=== PATIENT | female | born 1945 | race Caucasian/White ===

== ENCOUNTER 2016-12-07 09:16 | Day surgery (SDC) | payer OTHER, MEDICARE ==
--- NOTE | 2016-12-07 03:00 | GHP ---
[f rep st] PREOP HISTORY AND PHYSICAL COMPLAINT: Left knee pain. HISTORY OF PRESENT ILLNESS: This is a 71-year-old female who had been doing well with injections to the knee. However, she was [place] quickly through an airport, headed to [place] for vacation, caught her foot on a rug, had a large amount of pain in the knee, and has had swelling since then. Has had pain while on vacation that has not significantly improved. She subsequently underwent an MRI and was found to have a medial meniscal tear with some osteoarthritic changes. She wishes to have surgery in order to resolve the problem. ALLERGIES: She is allergic to sulfa. CURRENT MEDICATIONS: Include amitriptyline, atorvastatin, duloxetine, Humalog, levothyroxine, metoprolol, olmesartan, and warfarin. PRIOR MEDICAL PROBLEMS: Include diabetes and thyroid issues. Procedures include a right shoulder scope x2. SOCIAL HISTORY: She is a former smoker, and takes no alcohol. PHYSICAL EXAM: HEENT: Pupils are equal, round, reactive to light. CHEST: Clear to auscultation. HEART: Regular rate and rhythm. ABDOMEN: Soft and nontender. EXTREMITIES: The left knee reveals mild effusion to the knee with tenderness noted at the Hoffa pad and the medial joint line. ASSESSMENT AND PLAN: Patient is status post left medial meniscal tear with ____ . The risks and benefits of surgery were thoroughly discussed with the patient. Plan is to take her to the operating room, where she will undergo a left knee arthroscopy. /[id number]/MODL MTDD
--- NOTE | 2016-12-07 07:11 | PDHPUP ---
History & Physical Update H&P update statement: This history and physical update is based on an assessment of the patient which was completed after admission or registration (within 24 hours), but prior to the surgery/procedure. H&P update: H&P reviewed & patient examined, no change in patient's condition since H&P completed
[~2016-12-07 09:16] MED LIST: ACETAMINOPHEN 500 MG TAB PO ONE; ceFAZolin 2 GM/DEXTROSE 100 ML IV ONE
[2016-12-07] MEDS ORDERED: LIDOCAINE 1% 2 ML INJ ID PRN (09:43)
[2016-12-07] MEDS ORDERED: LR 1,000 ML IV ONE (09:43)
[2016-12-07] MEDS ORDERED: BUPIVACAINE 0.5% 30 ML SDV ONE (10:07)
[2016-12-07] MEDS ORDERED: ceFAZolin 2 GM/DEXTROSE 100 ML IV ONE (10:45)
[2016-12-07] MEDS ORDERED: ACETAMINOPHEN 500 MG TAB PO ONE (10:45)
[2016-12-07 10:47] LABS: INR 1.32 (0.83-1.16); PROTIME(PATIENT) 16.4 SEC (12.0-15.0)
[2016-12-07 10:55] VITALS: PULSE 81
[2016-12-07] MEDS ORDERED: D50W 25 GM/50 ML SYR IVP ONE (12:00)
--- NOTE | 2016-12-07 12:23 | PDANEPAE ---
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 hx of paroxismal atrial fibrillation - Pulmonary History Hx COPD: No Hx Asthma/Reactive Airway Disease: No Hx Recent Upper Respiratory Infection: No Hx Oxygen in Use at Home: No Hx Sleep Apnea: No Sleep Apnea Screening Result - Last Documented: Negative Pulmonary History Comment: pulmonary emboli nov 2015 - Neurologic History Hx Cerebrovascular Accident: No Hx Seizures: No Hx Dementia: No Neurologic History Comment: NEUROPATHY - bilat great toes & 2nd toes - Endocrine History Hx Diabetes: Yes Hypothyroid: Yes Endocrine History Comment: TYPE I DM, brittle. HYPOTHYROID - HASHIMOTOS - Renal History Hx Renal Disorders: No - Liver History Hx Hepatic Disorders: No - Neurological & Psychiatric Hx Hx Neurological and Psychiatric Disorders: Yes Neurological / Psychiatric History Comment: ANXIETY - LORAZEPAM - Cancer History Hx Cancer: No - Congenital Disorder History Hx Congenital Disorders: No - GI History Hx Gastrointestinal Disorders: Yes Gastrointestinal History Comment: LAP BAND for morbid obesity - Other Health History Other Health History: NEG - Chronic Pain History Chronic Pain: No - Surgical History Prior Surgeries: L RTC REPAIR 2012. LAP BAND 2014. TONSILLECTOMY. D&C ANE Review of Systems Review of Systems: - Exercise capacity METS (RN): 4 METS ANE Patient History - Allergies Allergies/Adverse Reactions: maltodextrin Allergy (Intermediate, Verified 12/22/15 15:49) Diarrhea Sulfa (Sulfonamide Antibiotics) Allergy (Mild, Verified 12/15/15 14:14) headache - Home Medications Home Medications: Atorvastatin Calcium [Lipitor 20 mg (*)] 20 mg PO HS 05/04/15 [Last Taken 21:00] Cholecalciferol Vit D3 [Vitamin D3 (*)] 5,000 units PO DAILY 05/04/15 [Last Taken 12/14/15] DULoxetine [Cymbalta 60 MG (*)] 60 mg PO HS 05/04/15 [Last Taken 12/06/16 22:00] Insulin Pump: Novolog 1 each SC CONT 05/04/15 [Last Taken 12/15/15] Levothyroxine [Synthroid 125 mcg (*)] 125 mcg PO DAILY06 05/04/15 [Last Taken 06:00] Olmesartan Medoxomil [Benicar 20 mg (*)] 20 mg PO HS 05/04/15 [Last Taken ] Amitriptyline HCl [Elavil 10 mg (*)] 10 mg PO HS 05/24/15 [Last Taken 12/06/16 21:00] Melatonin [Melatonin 5 mg] 5 mg PO HS PRN 05/24/15 [Last Taken 12/14/15] Multivitamin [Chewable Multi Vitamin] 1 tab PO DAILY 07/10/15 [Last Taken ] - NPO status NPO Since - Liquids (Date): 12/06/16 NPO Since - Liquids (Time): 22:30 NPO Since - Solids (Date): 12/05/16 NPO Since - Solids (Time): 17:00 - Smoking Hx Smoking Status: Former smoker - Family Anes Hx Family Hx Anesthesia Complications: NEG ANE Labs/Vital Signs - Vital Signs Blood Pressure: 123/72 Heart Rate: 81 Respiratory Rate: 16 O2 Sat (%): 96 Height: 160.02 cm Weight: 72.121 kg ANE Physical Exam - Airway Neck exam: FROM Mallampati Score: Class 1 Mouth exam: normal dental/mouth exam, abnormal chin (Short TM distance) - Pulmonary Pulmonary: clear to auscultation ([) - Cardiovascular Cardiovascular: regular rate and rhythym - ASA Status ASA Status: III ANE Anesthesia Plan Anesthesia Plan: general endotracheal anesthesia
[2016-12-07] MEDS ORDERED: MIDAZOLAM 2 MG/2 ML VIAL IVP ONE (12:35)
[2016-12-07] MEDS ORDERED: MIDAZOLAM 2 MG/2 ML VIAL ONE ×3 (12:37)
[2016-12-07] MEDS ORDERED: PROPOFOL 200 MG/20 ML VIAL ONE ×2 (12:43→13:00)
[2016-12-07] MEDS ORDERED: ROCURONIUM 50 MG/5 ML VIAL ONE (12:43)
[2016-12-07] MEDS ORDERED: DEXAMETHASONE 4 MG/ML VIAL ONE (12:45)
[2016-12-07] MEDS ORDERED: ONDANSETRON 4 MG/2 ML VIAL ONE (13:14)
[2016-12-07] MEDS ORDERED: CYCLOBENZAPRINE 10 MG TAB PO PRN (13:48)
[2016-12-07] MEDS ORDERED: TEMAZEPAM 15 MG CAP PO PRN (13:48)
[2016-12-07] MEDS ORDERED: PROMETHAZINE HCL 25 MG SUPPR PR PRN (13:48)
[2016-12-07] MEDS ORDERED: METOCLOPRAMIDE 10 MG/2 ML VIAL IVP PRN (13:48)
[2016-12-07] MEDS ORDERED: diphenhydrAMINE 25 MG CAP PO PRN (13:48)
[2016-12-07] MEDS ORDERED: PROMETHAZINE HCL 25 MG/ML INJ IVP PRN (13:48)
[2016-12-07] MEDS ORDERED: oxyCODONE IR 5 MG TAB PO PRN (13:48)
[2016-12-07] MEDS ORDERED: ONDANSETRON 4 MG/2 ML VIAL IVP PRN (13:48)
[2016-12-07] MEDS ORDERED: ONDANSETRON DISINTEGRATING 4 MG TAB PO PRN (13:48)
--- NOTE | 2016-12-07 13:48 | POSTOPPROG ---
Post Op Note Date of Operation: 12/07/16 Surgeon: Jennifer Montes De Oca Anesthesiologist: cynthia Anesthesia: GET(General Endotracheal) Pre-op Diagnosis: l mmt/.lmt/oa Procedure: with paertial med/lat menisectomy with chondroplasty Inf/Abcess present in the surg proc area at time of surgery?: No Depth: Deep Incisional (Fascial)
[2016-12-07] MEDS ORDERED: fentaNYL 100 MCG/2 ML INJ IVP PRN (13:52)
[2016-12-07] MEDS ORDERED: NALOXONE HCL 0.4 MG/ML INJ IVP PRN (13:52)
[2016-12-07] MEDS ORDERED: LR 1,000 ML IV SCH (14:00)
[2016-12-07 14:49] VITALS: TEMP 97.5
--- NOTE | 2016-12-07 14:56 | POSTANESTH ---
Post Anesthetic Evaluation Cardiovascular Status: Similar to Pre-Op Cond Respiratory Status: Normal, Stable Level of Consciousness/Mental Status: Can Participate in Eval Pain Control: Adequate, Prn Tx Ordered Nausea/Vomiting Control: Adequate, Prn Tx Ordered Complications Possibly Related to Anesthesia: None Noted
--- NOTE | 2016-12-07 15:08 | GOP ---
[f rep st] OPERATIVE REPORT DATE OF OPERATION: 12/07/2016 SURGEON: Jennifer Montes De Oca MD ANESTHESIA: By endotracheal intubation. PREOPERATIVE DIAGNOSIS: Left medial meniscal tear. POSTOPERATIVE DIAGNOSIS: Left medial meniscal tear, and grade 3 chondral changes to the medial jim rtment, and grade 2 chondral changes to the patellofemoral and lateral compartments. PROCEDURE PERFORMED: Left knee arthroscopy with partial medial and partial lateral meniscectomy, and chondroplasty. FINDINGS: INDICATIONS: This is a 71-year-old female who had tripped, had a small traumatic incident that cause d a significant amount of pain into her knee, causing locking, popping and inability to ambulate seco ndary to the pain she experienced. MRI revealed a large medial meniscal tear. She wishes to have presley rgery in order to resolve the problem. DESCRIPTION OF PROCEDURE: Patient brought to the operating room after the left side had been identif ied as the correct side by the patient, nurse and physician. Once in the operating room, she was kita dee under general anesthesia using endotracheal intubation. Once asleep, tourniquet was placed aroun d the upper portion of left thigh, and both legs placed in appropriate leg holders. Left lower extre mity then sterilely prepped and draped in the usual fashion using GSI solution. Once prepped and fatuma ped, the limb was exsanguinated, tourniquet inflated to 250 mmHg. An incision was made in the supero medial portion of the knee with an outflow trocar introduced without difficulty. A 2nd incision was made lateral to the patellar tendon between the inferior pole of the patella and the tibial plateau w ith the camera introduced without difficulty. Inspection of the joint reveals some grade 2 chondral changes to the patella and to the trochlea, kerwin ng with abundant amount of synovium in the suprapatellar pouch, and the medial and lateral gutters. Further inspection revealed the ACL ligament to be intact. Inspection of the medial compartment reve aled a large fragmented tear of the body and posterior horn of the medial meniscus along with some gr angela 3 chondral changes to the medial compartment. Inspection of the lateral compartment revealed sma ller tearing of the posterior horn and body of the lateral meniscus, with some grade 2 chondral lawson es noted of the femur and tibia. Therefore, a third incision was made medial to the patellar tendon between the inferior pole of the patella and the tibial plateau, and alternatingly using a straight-b iter and a 4.5 mm smooth shaver, was used to debride both tears of the medial and lateral meniscus, a nd remove the loose fragments of cartilage from the medial compartment. Once completed, all instruments were removed from the knee with 30 cc of Marcaine infused in the knee joint. The 3 portal sites were closed using 3-0 nylon suture in a [id number] type stitch. The wounds were dressed with Xeroform and 4 x 4's, wrapped in Kerlix. Tourniquet was deflated at 30 min utes. Leg was completely undraped in the operating room, was taken out of its leg lizarraga, tourniquet removed from the thigh, and an Terry wrap placed around the knee. The right leg was taken out of its leg lizarraga. She was placed in a supine position. She was woken up, extubated, transferred onto a [facility], and sent to recovery room in good condition. TOURNIQUET TIME: 30 minutes. /[id number]/MODL
[2016-12-07 15:14] VITALS: BP 147/78; RESP 16; O2SAT 91
[2016-12-07] MEDS ORDERED: ACETAMINOPHEN 325 MG TAB PO SCH (18:00)
[2016-12-07] MEDS ORDERED: ASPIRIN 325 MG TAB PO SCH (21:00)
[2016-12-07] MEDS ORDERED: FAMOTIDINE 20 MG TAB PO SCH (21:00)
== END 2016-12-07 16:16 | disposition home or self-care (01) ==
LOC: FSGY 09:16
PROVIDERS: ATTEND Orthopaedic Surgery
PROC: 0SBD4ZZ Excision of Left Knee Joint, Percutaneous Endoscopic Approach (ICD-10-PCS; principal; 2016-12-07 11:30)
DX: S83.242A Other tear of medial meniscus, current injury, left knee, initial encounter (principal); S83.282A Other tear of lateral meniscus, current injury, left knee, initial encounter; X50.0XXA Overexertion from strenuous movement or load, initial encounter; Y92.520 Airport as the place of occurrence of the external cause; Y99.8 Other external cause status; E10.9 Type 1 diabetes mellitus without complications; E03.9 Hypothyroidism, unspecified; Z79.4 Long term (current) use of insulin; Z86.711 Personal history of pulmonary embolism; Z87.891 Personal history of nicotine dependence; Z88.2 Allergy status to sulfonamides
CPT/HCPCS: J0171; J0690; J1100; J2250; J2405; J2704

== ENCOUNTER 2017-05-24 07:34 | Day surgery (SDC) | payer OTHER, MEDICARE ==
--- NOTE | 2017-05-15 14:43 | GHP ---
[f rep st] PREOP HISTORY AND PHYSICAL COMPLAINT: Left shoulder pain and weakness. HISTORY OF PRESENT ILLNESS: The patient is a 72-year-old female with a recent fall, causing weakness into her left shoulder. MRI reveals a rotator cuff tear. She wishes to have surgery in order to resolve the problem. ALLERGIES: Include sulfa medications. CURRENT MEDICATIONS: Include amitriptyline, atorvastatin, duloxetine, Humalog, levothyroxine, losartan, metoprolol, olmesartan, and warfarin. MEDICAL PROBLEMS: Include diabetes, osteoporosis and thyroid problems. PRIOR SURGERIES: Include right shoulder x2, and knee arthroscopy x1. SOCIAL HISTORY: She is a former smoker, and not a drinker. PHYSICAL EXAMINATION: EYES: Pupils equal, round, and reactive to light. CHEST : Clear to auscultation. HEART: Regular rate and rhythm. ABDOMEN: Soft and nontender. LEFT SHOULDER: There is limitations to forward flexion, external rotation, internal rotation, compared to the opposite side, with weakness, noted external rotation, internal rotation and supraspinatus. MRI reveals rotator cuff tear to the supraspinatus, and partial tearing of the superior labrum. She wishes to have surgery in order to resolve the problem. ASSESSMENT AND PLAN: The patient is status post a left shoulder impingement syndrome with rotator cuff tear. Plan is to take her to the operating room to undergo a left shoulder scope with rotator cuff repair. /[id number]/MODL MTDD
[2017-05-24] MEDS ORDERED: LR 1,000 ML IV ONE (08:02)
[2017-05-24 08:17] VITALS: RESP 16
[2017-05-24] MEDS ORDERED: BUPIVACAINE/EPI 0.5% 30 ML SDV ONE (08:22)
[2017-05-24 08:32] LABS: INR 0.99 (0.83-1.16); PROTIME(PATIENT) 13.3 SEC (12.0-15.0)
[2017-05-24] MEDS ORDERED: MIDAZOLAM 2 MG/2 ML VIAL IVP ONE (08:41)
--- NOTE | 2017-05-24 08:42 | PDANEPAE ---
ANE History of Present Illness left shoulder pain+ ANE Past Medical History - Cardiovascular History Hx Hypertension: No Hx Arrhythmias: Yes Hx Chest Pain: No Hx Coronary Artery / Peripheral Vascular Disease: No Hx CHF / Valvular Disease: No Hx Palpitations: No Cardiovascular History Comment: PT STATES TAKES BENICAR FOR KIDNEY PROPHYLAXIS, . hx of paroxismal atrial fibrillation - Pulmonary History Hx COPD: No Hx Asthma/Reactive Airway Disease: No Hx Recent Upper Respiratory Infection: No Hx Oxygen in Use at Home: No Hx Sleep Apnea: No Sleep Apnea Screening Result - Last Documented: Negative Pulmonary History Comment: pulmonary emboli nov 2015 - Neurologic History Hx Cerebrovascular Accident: No Hx Seizures: No Hx Dementia: No Neurologic History Comment: NEUROPATHY - bilat great toes & 2nd toes - Endocrine History Hx Diabetes: Yes Endocrine History Comment: TYPE I DM, brittle. HYPOTHYROID - HASHIMOTOS - Renal History Hx Renal Disorders: No - Liver History Hx Hepatic Disorders: No - Neurological & Psychiatric Hx Hx Neurological and Psychiatric Disorders: Yes Neurological / Psychiatric History Comment: ANXIETY - LORAZEPAM - Cancer History Hx Cancer: No - Congenital Disorder History Hx Congenital Disorders: No - GI History Hx Gastrointestinal Disorders: Yes Gastrointestinal History Comment: LAP BAND for morbid obesity - Other Health History Other Health History: NEG - Chronic Pain History Chronic Pain: No - Surgical History Prior Surgeries: L RTC REPAIR 2012. LAP BAND 2013. TONSILLECTOMY. D&C ANE Review of Systems Review of Systems: - Exercise capacity METS (RN): 4 METS ANE Patient History - Allergies Allergies/Adverse Reactions: maltodextrin Allergy (Verified 05/13/17 16:54) Diarrhea, cramps Sulfa (Sulfonamide Antibiotics) Allergy (Verified 05/13/17 16:54) itching all over - Home Medications Home Medications: Cholecalciferol Vit D3 [Vitamin D3 (*)] 05/04/15 [Last Taken 05/17/17] DULoxetine [Cymbalta 60 MG (*)] 05/04/15 [Last Taken 05/23/17] Levothyroxine [Synthroid 125 mcg (*)] 05/04/15 [Last Taken 05/23/17] Amitriptyline HCl [Elavil 10 mg (*)] HS 05/24/15 [Last Taken 12/06/16 21:00] Melatonin [Melatonin 5 mg] HS PRN 05/24/15 [Last Taken 05/23/17] Multivitamin [Chewable Multi Vitamin] 07/10/15 [Last Taken 05/17/17] Insulin Pump, Patient Own 05/13/17 [Last Taken 05/24/17 08:39 TURNED DOWN TO 1.00] Losartan Potassium 05/13/17 [Last Taken 05/23/17 19:30] Warfarin Sodium 05/13/17 [Last Taken 05/16/17] - NPO status NPO Since - Liquids (Date): 05/23/17 NPO Since - Liquids (Time): 05:00 NPO Since - Solids (Date): 05/23/17 NPO Since - Solids (Time): 19:00 - Smoking Hx Smoking Status: Former smoker - Family Anes Hx Family Hx Anesthesia Complications: NEG ANE Labs/Vital Signs - Vital Signs Blood Pressure: 107/84 Heart Rate: 81 Respiratory Rate: 16 O2 Sat (%): 95 Height: 160.02 cm Weight: 72.121 kg ANE Physical Exam - Airway Neck exam: decreased ROM, short neck Mallampati Score: Class 3 Mouth exam: normal dental/mouth exam - Pulmonary Pulmonary: no respiratory distress - Cardiovascular Cardiovascular: regular rate and rhythym - ASA Status ASA Status: III ANE Anesthesia Plan Anesthesia Plan: general endotracheal anesthesia Regional Anesthesia: interscalene BP NB
[2017-05-24] MEDS ORDERED: fentaNYL 100 MCG/2 ML INJ ONE ×2 (08:45)
[2017-05-24] MEDS ORDERED: PROPOFOL 200 MG/20 ML VIAL ONE (08:45)
[2017-05-24] MEDS ORDERED: ceFAZolin 2 GM/SWFI 2 GM/20 ML SYR IVP ONE (09:00)
[2017-05-24] MEDS ORDERED: PREGABALIN 150 MG CAP PO ONE (09:00)
[2017-05-24] MEDS ORDERED: ACETAMINOPHEN 500 MG TAB PO ONE (09:00)
[2017-05-24] MEDS ORDERED: THROMBIN (BOVINE) 5,000 UNIT VIAL TP ONE (09:18)
[2017-05-24] MEDS ORDERED: CALCIUM CHLORIDE 1 GM/10 ML INJ ONE (09:18)
[2017-05-24] MEDS ORDERED: PHENYLEPHRINE HCL 100 MCG/ML SYR ONE ×3 (09:26→09:57)
[2017-05-24] MEDS ORDERED: NALOXONE HCL 0.4 MG/ML INJ IVP PRN (09:47)
[2017-05-24] MEDS ORDERED: HYDROmorphONE/DILAUDID 1 MG/ML INJ IVP PRN (09:47)
[2017-05-24] MEDS ORDERED: fentaNYL 100 MCG/2 ML INJ IVP PRN (09:47)
[2017-05-24] MEDS ORDERED: PROMETHAZINE HCL 25 MG/ML INJ IVP PRN (09:47)
[2017-05-24] MEDS ORDERED: ONDANSETRON 4 MG/2 ML VIAL IVP PRN (09:47)
[2017-05-24] MEDS ORDERED: ROCURONIUM 50 MG/5 ML VIAL ONE (09:48)
[2017-05-24] MEDS ORDERED: ONDANSETRON 4 MG/2 ML VIAL ONE (09:48)
[2017-05-24] MEDS ORDERED: DEXAMETHASONE 4 MG/ML VIAL ONE (09:48)
[2017-05-24] MEDS ORDERED: HYDROCODONE/APAP 5/325 TAB PO PRN (10:42)
--- NOTE | 2017-05-24 10:42 | POSTOPPROG ---
Post Op Note Date of Operation: 05/24/17 Surgeon: Jennifer Montes De Oca Basketball Coach: galen Anesthesiologist: serge Anesthesia: LMA, Other (Specify) Pre-op Diagnosis: l rct with labral tear Procedure: l shoulder scope with rcr x2 with labral and rc debridement Inf/Abcess present in the surg proc area at time of surgery?: No Depth: Deep Incisional (Fascial) EBL: 50-100
--- NOTE | 2017-05-24 10:48 | POSTANESTH ---
Post Anesthetic Evaluation Cardiovascular Status: Normal, Stable Respiratory Status: Normal, Stable Level of Consciousness/Mental Status: Can Participate in Eval Pain Control: Adequate, Prn Tx Ordered Nausea/Vomiting Control: Adequate, Prn Tx Ordered Complications Possibly Related to Anesthesia: None Noted
--- NOTE | 2017-05-24 11:18 | GOP ---
[f rep st] OPERATIVE REPORT DATE OF OPERATION: 05/24/2017 SURGEON: Jennifer Montes De Oca MD GLAZIER METAL FURNITURE: Sivakumar Oconnor, certified SA, whose presence was medically necessary. ANESTHESIA: By LMA plus scalene nerve block per surgeon's request. PREOPERATIVE DIAGNOSIS: Left recurrent rotator cuff tear. POSTOPERATIVE DIAGNOSIS: Left recurrent rotator cuff tear with labral tear. PROCEDURE PERFORMED: Left shoulder arthroscopy with rotator cuff repairs x2, debridement of rotator cuff and labrum. FINDINGS: INDICATIONS: This is a 72-year-old female who had previously undergone a left rotator cuff repair. Had initially done well, then had a small trauma which caused almost immediate weakness afterwards. MRI revealed a recurrence of her rotator cuff tear in a newer area. She wished to have surgery in or janeth to resolve the problem. DESCRIPTION OF PROCEDURE: Patient brought to the operating room after the left side had been identif ied as the correct side by the patient, nurse, and physician. Once in the operating room, she was gi ana lilia a scalene block on the left side and then placed under general anesthesia using an LMA. Once asl eep, she was placed in a beach chair position with the left upper extremity sterilely prepped and fatuma ped in the usual fashion using GSI solution. Once prepped and draped, incision was made off the post erolateral corner of the acromion using a prior scar with the camera introduced without difficulty. Inspection of the joint revealed no significant change in the chondral changes associated with her fi rst surgery. She was noted to have a new superior labral tear. Therefore, using an in-to-out techni que, an anterior portal was made superolateral to the coracoid process with a 6 x 75 mm threaded omer ashley placed through the anterior portal and a 3.5 mm smooth shaver used to debride and debulk the tear of the labrum. The superior and anterior portions of the labrum were debrided. Attention was turne d to the rotator cuff, which was noted to be grossly intact, although somewhat thin, but no distinct hole noted. Therefore, once completed, all instruments were removed from the glenohumeral joint, and , using the same portal sites, camera and cannula were introduced in the subacromial space. A third incision was made 2 cm lateral to the acromial process in line with the posterior cortex of the clavi eli using a prior incision. Camera was moved to the lateral portal, and a probe was used to examine the area around the rotator cuff. She was noted to have a small tear off the bone, approximately 1 c m wide, with no retraction noted. The area was debrided using combination of shaver and bur in order to eburnate the bone in the area. #2 FiberWire was woven into the anterior and posterior portions a nd then driven into the bone using a 4.5 mm Veam Videoenne anchor. Attention was turned to the body of the rotator cuff, which was noted to have a recurrence of her split tear in the midportion of the rotator cuff. A suture was woven into the anterior and posterior portions of the split, and a [id number] repair was performed with a knot tied in the middle. Once completed, all instruments were removed fr om the subacromial space with 30 cc of Marcaine infused in the subacromial space. Three portal sites were closed using 3-0 nylon suture in a [id number]-type stitch. Plasmagel was injected into th e subacromial space. The wounds were then dressed with Xeroform, 4 x 4, and Tegaderm. She was compl etely undraped in the operating room, had a shoulder immobilizer placed on the left upper extremity. She was then woken up, extubated, transferred onto a bed, and sent to recovery room in [place] #: [id number]/MODL
[2017-05-24 11:53] VITALS: PULSE 83; TEMP 97.9
[2017-05-24 12:22] VITALS: BP 104/75; O2SAT 89
== END 2017-05-24 12:25 | disposition home or self-care (01) ==
LOC: FSGY 07:34
PROVIDERS: ATTEND Orthopaedic Surgery
PROC: 0LQ24ZZ Repair Left Shoulder Tendon, Percutaneous Endoscopic Approach (ICD-10-PCS; principal; 2017-05-24 10:00)
PROC: 3E0U3GC Introduction of Other Therapeutic Substance into Joints, Percutaneous Approach (ICD-10-PCS; principal; 2017-05-24 10:00)
PROC: 0MB24ZZ Excision of Left Shoulder Bursa and Ligament, Percutaneous Endoscopic Approach (ICD-10-PCS; principal; 2017-05-24 10:00)
DX: M75.112 Incomplete rotator cuff tear or rupture of left shoulder, not specified as traumatic (principal); M75.42 Impingement syndrome of left shoulder; E55.9 Vitamin D deficiency, unspecified; E06.3 Autoimmune thyroiditis; E78.5 Hyperlipidemia, unspecified; E10.21 Type 1 diabetes mellitus with diabetic nephropathy; M81.0 Age-related osteoporosis without current pathological fracture; E66.9 Obesity, unspecified; Z79.4 Long term (current) use of insulin; Z86.711 Personal history of pulmonary embolism; Z87.891 Personal history of nicotine dependence; Z88.0 Allergy status to penicillin
CPT/HCPCS: 0232T; 29827; C1713; J0171; J0690; J1100; J2250; J2370; J2405; J2704; J3010

== ENCOUNTER 2017-08-16 12:38 | Inpatient (IN) | payer OTHER, MEDICARE ==
[2017-08-16 13:06] LABS: PLATELET COUNT 379 10^3/uL (150-400)
[2017-08-16] MEDS ORDERED: NS 1,000 ML IV ONE ×2 (13:16→13:38)
--- NOTE | 2017-08-16 13:26 | EDPHY ---
H & P Stated Complaint: ? DKA/600's this week Time Seen by Provider: 08/16/17 13:00 HPI/ROS: CHIEF COMPLAINT: High blood sugar Limitations: Confusion HISTORY OF PRESENT ILLNESS: 72-year-old female with IDDM presents with elevated blood sugar. Blood sugar has been running high for the past 3 days. Associated with some confusion and memory loss. She tried to adjust her insulin pump, but is not sure if the insulin pump is actually working. No recent illness/fever and no chest pain or shortness of breath. REVIEW OF SYSTEMS: complete 10 point ROS negative except at noted in the HPI Source: Patient - Personal History Current Tetanus Diphtheria and Acellular Pertussis (TDAP): Yes - Medical/Surgical History Hx Asthma: No Hx Chronic Respiratory Disease: No Hx Diabetes: Yes Hx Cardiac Disease: No Hx Renal Disease: No Hx Cirrhosis: No Hx Alcoholism: No Hx HIV/AIDS: No Hx Splenectomy or Spleen Trauma: No Other PMH: TYPE 1 DIABETES, HYPOTHYROID, 2005-[facility]. lap band. bilateral rotator coff - Social History Smoking Status: Former smoker - Physical Exam Exam: General Appearance: Alert, pleasant, nontoxic-appearing Eyes: Pupils equal and round, no conjunctival pallor or injection ENT, Mouth: Mucous membranes dry Neck: Normal inspection Respiratory: Lungs are clear to auscultation Cardiovascular: Regular rate and rhythm Gastrointestinal: Abdomen is soft and nontender Neurological: A&O, nonfocal, exam Skin: Warm and dry, no rash Ext: nontender, no pedal edema Psychiatric: Mood and affect normal Constitutional: Initial Vital Signs Temperature (C) 36.6 C 08/16/17 12:41 Heart Rate 85 08/16/17 12:41 Respiratory Rate 17 08/16/17 12:41 Blood Pressure 121/48 H 08/16/17 12:41 O2 Sat (%) 96 08/16/17 12:41 O2 Delivery Mode Room Air Allergies/Adverse Reactions: maltodextrin Allergy (Verified 08/16/17 12:41) Diarrhea, cramps Sulfa (Sulfonamide Antibiotics) Allergy (Verified 08/16/17 12:41) itching all over Home Medications: Medication Instructions Recorded Cholecalciferol Vit D3 [Vitamin D3 1,000 units PO DAILY 05/04/15 (*)] DULoxetine [Cymbalta 60 MG (*)] 60 mg PO DAILY 05/04/15 Levothyroxine [Synthroid 125 mcg 125 mcg PO DAILY06 05/04/15 (*)] Amitriptyline HCl [Elavil 10 mg 10 mg PO HS 05/24/15 (*)] Melatonin [Melatonin 5 mg] 5 mg PO HS PRN 05/24/15 Losartan Potassium [Cozaar 50 mg 100 mg PO HS 05/13/17 (*)] Warfarin Sodium [Coumadin 2MG (*)] 4 mg PO TH@05/13/17 Insulin Pump, Patient Own 1 ea MISC AD 08/16/17 Multivitamins [Multivitamin (*)] 1 each PO DAILY 08/16/17 Warfarin Sodium [Coumadin 3MG (*)] 6 mg PO SUMOTUWEFRSA@08/16/17 Medical Decision Making - Diagnostics EKG Interpretation: EKG interpreted by me reveals normal sinus rhythm, rate 79, poor R-wave progression, diffuse T-wave flattening. Interpretation: Abnormal EKG ED Course/Re-evaluation: This patient presents with dehydration and hyperglycemia, likely DKA She is nontoxic appearing and there are no localizing signs of infection. IV normal saline 2 L initiated. Initial potassium is 4.0, bicarb is 16. An insulin drip was initiated. Laboratory tests reveal leukocytosis. Urinalysis is unremarkable. Chest x-ray not indicated given lack of respiratory symptoms. There is no sign of infection on exam. EKG reveals no evidence of ischemia or dysrhythmia. The hospitalist service was consulted for admission. I spent a total of 35 minutes of critical care time in obtaining history, performing a physical exam, bedside monitoring of interventions, collecting and interpreting tests and discussion with consultants but not including time spent performing procedures. Differential Diagnosis: Differential diagnosis includes does not limited to pneumonia, urinary tract infection, acute coronary syndrome, hypokalemia, hypotension - Data Points Laboratory Results: Laboratory Results 08/16/17 12:57 08/16/17 12:57 08/16/17 08/16/17 08/16/17 13:40 13:01 12:57 WBC RBC Hgb POC Hgb 16.0 gm/dL gm/dL (12.6-16.3) Hct POC Hct 47 % % (38-47) MCV MCH MCHC RDW Plt Count MPV Neut % (Auto) Lymph % (Auto) [place] % (Auto) Eos % (Auto) Baso % (Auto) Nucleat RBC Rel Count Absolute Neuts (auto) Absolute Lymphs (auto) Absolute Monos (auto) Absolute Eos (auto) Absolute Basos (auto) Absolute Nucleated RBC Immature Gran % Immature Gran # POC Sodium 130 mEq/L L mEq/L (135-145) Sodium 131 mEq/L L mEq/L (135-145) POC Potassium 4.0 mEq/L mEq/L (3.3-5.0) Potassium 4.0 mEq/L mEq/L (3.3-5.0) POC Chloride 97 mEq/L mEq/L (97-110) Chloride 94 mEq/L L mEq/L (97-110) Carbon Dioxide 16 mEq/l L mEq/l (22-31) Anion Gap 21 mEq/L H mEq/L (8-16) POC BUN 39 mg/dL H mg/dL (7-23) BUN 33 mg/dL H mg/dL (7-23) Creatinine 1.3 mg/dL H mg/dL (0.6-1.0) POC Creatinine 1.4 mg/dL H mg/dL (0.6-1.0) Estimated GFR 40 Glucose 506 mg/dL H* mg/dL (70-100) POC Glucose 492 mg/dL H mg/dL (70-100) Calcium 9.3 mg/dL mg/dL (8.5-10.4) Beta-Hydroxybutyrate 3.04 mmol/L H mmol/L (0.02-0.27) Urine Color PALE YELLOW Urine Appearance CLEAR Urine pH 5.0 (5.0-7.5) Ur Specific [place] 1.025 (1.002-1.030) Urine Protein NEGATIVE (NEGATIVE) Urine Ketones 1+ H (NEGATIVE) Urine Blood 1+ H (NEGATIVE) Urine Nitrate NEGATIVE (NEGATIVE) Urine Bilirubin NEGATIVE (NEGATIVE) Urine Urobilinogen NEGATIVE EU EU (0.2-1.0) Ur Leukocyte Esterase NEGATIVE (NEGATIVE) Urine RBC 1-3 /hpf /hpf (0-3) Urine WBC 0-1 /hpf /hpf (0-3) Ur Epithelial Cells TRACE /lpf /lpf (NONE-1+) Hyaline Casts 5-15 /lpf /lpf (0-1) Urine Glucose 3+ H (NEGATIVE) Serum Ketones Cancelled 06/19/18 12:57 WBC 19.19 10^3/uL H 10^3/uL (3.80-9.50) RBC 4.89 10^6/uL 10^6/uL (4.18-5.33) Hgb 14.9 g/dL g/dL (12.6-16.3) POC Hgb Hct 43.8 % % (38.0-47.0) POC Hct MCV 89.6 fL fL (81.5-99.8) MCH 30.5 pg pg (27.9-34.1) MCHC 34.0 g/dL g/dL (32.4-36.7) RDW 13.5 % % (11.5-15.2) Plt Count 379 10^3/uL 10^3/uL (150-400) MPV 9.5 fL fL (8.7-11.7) Neut % (Auto) 82.2 % H % (39.3-74.2) Lymph % (Auto) 11.9 % L % (15.0-45.0) [place] % (Auto) 5.1 % % (4.5-13.0) Eos % (Auto) 0.1 % L % (0.6-7.6) Baso % (Auto) 0.1 % L % (0.3-1.7) Nucleat RBC Rel Count 0.0 % % (0.0-0.2) Absolute Neuts (auto) 15.77 10^3/uL H 10^3/uL (1.70-6.50) Absolute Lymphs (auto) 2.29 10^3/uL 10^3/uL (1.00-3.00) Absolute Monos (auto) 0.97 10^3/uL H 10^3/uL (0.30-0.80) Absolute Eos (auto) 0.02 10^3/uL L 10^3/uL (0.03-0.40) Absolute Basos (auto) 0.02 10^3/uL 10^3/uL (0.02-0.10) Absolute Nucleated RBC 0.00 10^3/uL 10^3/uL (0-0.01) Immature Gran % 0.6 % % (0.0-1.1) Immature Gran # 0.12 10^3/uL H 10^3/uL (0.00-0.10) POC Sodium Sodium POC Potassium Potassium POC Chloride Chloride Carbon Dioxide Anion Gap POC BUN BUN Creatinine POC Creatinine Estimated GFR Glucose POC Glucose Calcium Beta-Hydroxybutyrate Urine Color Urine Appearance Urine pH Ur Specific [place] Urine Protein Urine Ketones Urine Blood Urine Nitrate Urine Bilirubin Urine Urobilinogen Ur Leukocyte Esterase Urine RBC Urine WBC Ur Epithelial Cells Hyaline Casts Urine Glucose Serum Ketones Medications Given: Insulin Human Regular 100 unit (/ Sodium Chloride) 101 mls @ 0 mls/hr IV AD DELISA ; Per Protocol PRN Reason: Protocol Stop: 02/12/18 16:29 Last Admin: 08/16/17 16:00 Dose: 101 mls Dextrose (D10w) 1,000 mls @ 0 mls/hr IV AD DELISA; Per Protocol PRN Reason: Protocol Stop: 02/12/18 16:59 Last Admin: 08/16/17 18:38 Dose: 1,000 mls Discontinued Medications Sodium Chloride (Ns) 1,000 mls @ 0 mls/hr IV ONCE ONE; Wide Open PRN Reason: Protocol Stop: 08/16/17 13:17 Last Admin: 08/16/17 13:31 Dose: 1,000 mls Sodium Chloride (Ns) 1,000 mls @ 1,000 mls/hr IV EDNOW ONE PRN Reason: Protocol Stop: 08/16/17 14:37 Last Admin: 08/16/17 14:32 Dose: 1,000 mls Insulin Human Regular 100 unit / Miscellaneous Medication 1 ea/ Sodium Chloride 101 mls @ 0 mls/hr IV EDNOW ONE; Per Protocol PRN Reason: Protocol Stop: 08/16/17 13:47 Last Admin: 08/16/17 14:26 Dose: 101 mls Sodium Chloride (Ns) 500 mls @ 500 mls/hr IV ONCE ONE Stop: 08/16/17 17:29 Last Admin: 08/16/17 17:23 Dose: 500 mls Sodium Chloride (Ns) 500 mls @ 500 mls/hr IV ONCE ONE Stop: 08/16/17 17:29 Last Admin: 08/16/17 17:23 Dose: 500 mls Miscellaneous Information (Message To Rn) 1 ea MISC ONCE ONE Stop: 08/16/17 16:31 Last Admin: 08/16/17 17:23 Dose: 1 ea Point of Care Test Results: Chemistry 08/16/17 13:01 POC Sodium 130 mEq/L L mEq/L (135-145) POC Potassium 4.0 mEq/L mEq/L (3.3-5.0) POC Chloride 97 mEq/L mEq/L (97-110) POC BUN 39 mg/dL H mg/dL (7-23) POC Creatinine 1.4 mg/dL H mg/dL (0.6-1.0) POC Glucose 492 mg/dL H mg/dL (70-100) ISTAT H&H 08/16/17 13:01 POC Hgb 16.0 gm/dL gm/dL (12.6-16.3) POC Hct 47 % % (38-47) Departure - Departure Disposition: [facility] In[facility] Acute Clinical Impression: Diabetic ketoacidosis Qualifiers: Diabetes mellitus type: type 1 Condition: Fair
[2017-08-16] MEDS ORDERED: INSULIN REGULAR HUMAN 100 UNIT, COSIGN. REQUIRED 1 EA in NS 100 ML IV ONE (13:46)
--- NOTE | 2017-08-16 13:54 | CPEKG ---
Heart Rate: 79 RR Interval: 759 P-R Interval: 152 QRSD Interval: 88 QT Interval: 404 QTC Interval: 464 P [place]: 73 QRS [place]: -43 T Wave [place]: 90 EKG Severity - ABNORMAL ECG - EKG Impression: SINUS RHYTHM EKG Impression: LEFT ANTERIOR FASCICULAR BLOCK EKG Impression: BORDERLINE R WAVE PROGRESSION, ANTERIOR LEADS EKG Impression: BORDERLINE T ABNORMALITIES, ANT-LAT LEADS Electronically Signed By: Roxane Carrillo 16-Aug-2017 20:31:29
--- NOTE | 2017-08-16 15:42 | ASMTCMCOM ---
CM Note CM Note Notes: Pt has just been admtted with DKA. She has a hx of DM1. She lives in [place] with her . CM will follow for any d/c needs. Date Signed: 08/16/2017 03:42 PM Electronically Signed By:FLORIDALMA Corona
[2017-08-16 16:11] LABS: INR 3.2 (0.83-1.16); PROTIME(PATIENT) 32.6 SEC (12.0-15.0)
[2017-08-16] MEDS ORDERED: NS 500 ML IV ONE ×2 (16:30)
[2017-08-16] MEDS ORDERED: NS 1,000 ML IV SCH ×2 (16:30→17:00)
[2017-08-16] MEDS ORDERED: INSULIN REGULAR HUMAN 100 UNIT in NS 100 ML IV SCH (16:30)
[2017-08-16] MEDS ORDERED: RN:ENTER POTASSIUM ICU PROTOCOL ON WORKLIST MISC ONE (16:30)
[2017-08-16] MEDS ORDERED: D50W 25 GM/50 ML SYR IVP PRN (17:00)
[2017-08-16] MEDS: D10W 1,000 ML IV SCH (18:38)
[2017-08-16] MEDS ORDERED: MELATONIN 3 MG TAB PO PRN (21:00)
[2017-08-16] MEDS ORDERED: WARFARIN SODIUM 3 MG TAB PO SCH (21:00)
[2017-08-16] MEDS ORDERED: LOSARTAN POTASSIUM 50 MG TAB PO SCH (21:00)
[2017-08-16] MEDS ORDERED: AMITRIPTYLINE HCL 10 MG TAB PO SCH (21:00)
--- NOTE | 2017-08-16 22:26 | PDGENHP ---
History and Physical - Chief Complaint "diabetic ketoacidosis" - History of Present Illness 72 yo F with PMH of DM1, a fib and hx of PE as well as chronic diastolic HF presenting with hyperglycemia in the setting of 2 days of n/v/d. She notes that she is not certain why this happened, she does not think she ate anything different notes she had been using her usual insulin dosing per insulin pump. She has not had any recent changes in her medications. She states that she is followed by Dr. Larsen of endocrinology and her DM has been well controlled. She notes that for the last several days she has noted that her sugars have been running high. She had her usual appointment with her coordinate measuring equipment operator today and given her lab abnormalities she was sent here for further evaluation. At this time she denies nausea/abd pain or confusion. She states it has been several ears since she had DKA. History Information - Allergies/Home Medication List Allergies/Adverse Reactions: maltodextrin Allergy (Verified 08/16/17 12:41) Diarrhea, cramps Sulfa (Sulfonamide Antibiotics) Allergy (Verified 08/16/17 12:41) itching all over Home Medications: Cholecalciferol Vit D3 [Vitamin D3 (*)] 1,000 units PO DAILY 05/04/15 [Last Taken 08/16/17] DULoxetine [Cymbalta 60 MG (*)] 60 mg PO DAILY 05/04/15 [Last Taken 08/16/17] Levothyroxine [Synthroid 125 mcg (*)] 125 mcg PO DAILY06 05/04/15 [Last Taken ] Amitriptyline HCl [Elavil 10 mg (*)] 10 mg PO HS 05/24/15 [Last Taken 08/15/17] Melatonin [Melatonin 5 mg] 5 mg PO HS PRN 05/24/15 [Last Taken 05/23/17] Losartan Potassium [Cozaar 50 mg (*)] 100 mg PO HS 05/13/17 [Last Taken 08/15/17 ] Warfarin Sodium [Coumadin 2MG (*)] 4 mg PO TH@21 05/13/17 [Last Taken 08/11/17] Insulin Pump, Patient Own 1 ea MISC AD 08/16/17 [Last Taken Unknown] Multivitamins [Multivitamin (*)] 1 each PO DAILY 08/16/17 [Last Taken 08/16/17] Warfarin Sodium [Coumadin 3MG (*)] 6 mg PO RAETUWJOSE@21 08/16/17 [Last Taken 08/15/17] I have personally reviewed and updated: family history, medical history, social history, surgical history - Past Medical History atrial fibrillation, CHF (diastolic), diabetes type 1, hypertension, hyperlipidemia, pulmonary embolism Additional medical history: hypothyroid. morbid obestiy - Surgical History Additional surgical history: lap band surgery. biateral shoulder surgery - Family History Positive for: non-pertinent - Social History Smoking Status: Former smoker Alcohol Use: Occasionally Drug Use: None Additional social history: Review of Systems Review of Systems: ROS: 10pt was reviewed & negative except for what was stated in HPI & below Physical Exam Physical Exam: Temp Pulse Resp BP Pulse Ox 36.3 C 85 22 H 104/68 98 08/16/17 15:56 08/16/17 18:53 08/16/17 18:53 08/16/17 20:44 08/16/17 18:53 Constitutional: no apparent distress, obese Eyes: PERRL, anicteric sclera Ears, Nose, Mouth, Throat: moist mucous membranes, hearing normal Cardiovascular: regular rate and rhythym, no murmur, rub, or gallop, No edema Respiratory: no respiratory distress, no rales or rhonchi, clear to auscultation Gastrointestinal: normoactive bowel sounds, soft, non-tender abdomen Genitourinary: no bladder tenderness Skin: warm, normal color Musculoskeletal: no muscle tenderness Neurologic: AAOx3 Psychiatric: interacting appropriately, not anxious, not encephalopathic Lab Data & Imaging Review 08/16/17 12:57 08/16/17 20:30 WBC 19.19 10^3/uL (3.80-9.50) H 08/16/17 12:57 RBC 4.89 10^6/uL (4.18-5.33) 08/16/17 12:57 Hgb 14.9 g/dL (12.6-16.3) 08/16/17 12:57 POC Hgb 16.0 gm/dL (12.6-16.3) 08/16/17 13:01 Hct 43.8 % (38.0-47.0) 08/16/17 12:57 POC Hct 47 % (38-47) 08/16/17 13:01 MCV 89.6 fL (81.5-99.8) 08/16/17 12:57 MCH 30.5 pg (27.9-34.1) 08/16/17 12:57 MCHC 34.0 g/dL (32.4-36.7) 08/16/17 12:57 RDW 13.5 % (11.5-15.2) 08/16/17 12:57 Plt Count 379 10^3/uL (150-400) 08/16/17 12:57 MPV 9.5 fL (8.7-11.7) 08/16/17 12:57 Neut % (Auto) 82.2 % (39.3-74.2) H 08/16/17 12:57 Lymph % (Auto) 11.9 % (15.0-45.0) L 08/16/17 12:57 [place] % (Auto) 5.1 % (4.5-13.0) 08/16/17 12:57 Eos % (Auto) 0.1 % (0.6-7.6) L 08/16/17 12:57 Baso % (Auto) 0.1 % (0.3-1.7) L 08/16/17 12:57 Nucleat RBC Rel Count 0.0 % (0.0-0.2) 08/16/17 12:57 Absolute Neuts (auto) 15.77 10^3/uL (1.70-6.50) H 08/16/17 12:57 Absolute Lymphs (auto) 2.29 10^3/uL (1.00-3.00) 08/16/17 12:57 Absolute Monos (auto) 0.97 10^3/uL (0.30-0.80) H 08/16/17 12:57 Absolute Eos (auto) 0.02 10^3/uL (0.03-0.40) L 08/16/17 12:57 Absolute Basos (auto) 0.02 10^3/uL (0.02-0.10) 08/16/17 12:57 Absolute Nucleated RBC 0.00 10^3/uL (0-0.01) 08/16/17 12:57 Immature Gran % 0.6 % (0.0-1.1) 08/16/17 12:57 Immature Gran # 0.12 10^3/uL (0.00-0.10) H 08/16/17 12:57 PT 32.6 SEC (12.0-15.0) H 08/16/17 15:40 INR 3.20 (0.83-1.16) H 08/16/17 15:40 POC Blood Source VENOUS 08/16/17 20:43 Puncture Site VENOUS 08/16/17 17:55 Patient Temperature 36.7 DEGREES 08/16/17 20:43 VBG pH 7.36 (7.31-7.42) 08/16/17 17:55 POC VBG pH 7.38 (7.31-7.42) 08/16/17 20:43 POC VBG pCO2 28 mmHg (40-44) L 08/16/17 20:43 POC VBG pO2 27 mmHg (35-40) L 08/16/17 20:43 VBG HCO3 18 mEQ/L (22-26) L 08/16/17 17:55 POC VBG HCO3 16 mEq/L (22-26) L 08/16/17 20:43 VBG Total CO2 20 mEq/L (21-27) L 08/16/17 17:55 POC VBG Total CO2 17 mEq/L (21-27) L 08/16/17 20:43 VBG O2 Saturation 32 % (65-75) L 08/16/17 17:55 VBG Base Excess -5.8 mEq/L (-2.5-2.5) L 08/16/17 17:55 POC VBG Base Excess -9.0 mEq/L (-2.5-2.5) L 08/16/17 20:43 Mixed VBG pCO2 34 mmHg (40-44) L 08/16/17 17:55 Mixed VBG pO2 22 mmHG (35-40) L 08/16/17 17:55 POC Mix VBG O2 Sat 52 % (65-75) L 08/16/17 20:43 POC FiO2 0.0000 % (0-100) 08/16/17 20:43 POC Sodium 130 mEq/L (135-145) L 08/16/17 13:01 Sodium 131 mEq/L (135-145) L 08/16/17 20:30 POC Potassium 4.0 mEq/L (3.3-5.0) 08/16/17 13:01 Potassium 4.0 mEq/L (3.3-5.0) 08/16/17 20:30 POC Chloride 97 mEq/L (97-110) 08/16/17 13:01 Chloride 104 mEq/L (97-110) 08/16/17 20:30 Carbon Dioxide 17 mEq/l (22-31) L 08/16/17 20:30 Anion Gap 10 mEq/L (8-16) 08/16/17 20:30 POC BUN 39 mg/dL (7-23) H 08/16/17 13:01 BUN 25 mg/dL (7-23) H 08/16/17 20:30 Creatinine 0.9 mg/dL (0.6-1.0) 08/16/17 20:30 POC Creatinine 1.4 mg/dL (0.6-1.0) H 08/16/17 13:01 Estimated GFR > 60 08/16/17 20:30 Glucose 347 mg/dL (70-100) H 08/16/17 20:30 POC Glucose 378 mg/dL (70-100) H 08/16/17 21:20 Calcium 7.5 mg/dL (8.5-10.4) L 08/16/17 20:30 Beta-Hydroxybutyrate 2.40 mmol/L (0.02-0.27) H 08/16/17 20:30 Urine Color PALE YELLOW 08/16/17 13:40 Urine Appearance CLEAR 08/16/17 13:40 Urine pH 5.0 (5.0-7.5) 08/16/17 13:40 Ur Specific [place] 1.025 (1.002-1.030) 08/16/17 13:40 Urine Protein NEGATIVE (NEGATIVE) 08/16/17 13:40 Urine Ketones 1+ (NEGATIVE) H 08/16/17 13:40 Urine Blood 1+ (NEGATIVE) H 08/16/17 13:40 Urine Nitrate NEGATIVE (NEGATIVE) 08/16/17 13:40 Urine Bilirubin NEGATIVE (NEGATIVE) 08/16/17 13:40 Urine Urobilinogen NEGATIVE EU (0.2-1.0) 08/16/17 13:40 Ur Leukocyte Esterase NEGATIVE (NEGATIVE) 08/16/17 13:40 Urine RBC 1-3 /hpf (0-3) 08/16/17 13:40 Urine WBC 0-1 /hpf (0-3) 08/16/17 13:40 Ur Epithelial Cells TRACE /lpf (NONE-1+) 08/16/17 13:40 Hyaline Casts 5-15 /lpf (0-1) 08/16/17 13:40 Urine Glucose 3+ (NEGATIVE) H 08/16/17 13:40 Serum Ketones Cancelled 08/16/17 12:57 Visualized and Interpreted EKG results: Yes EKG Interpretation: Positive for: normal sinsus rhythm EKG additional interpertation: LAFB, PRWP Assessment & Plan Assessment: Diabetic ketoacidosis (Acute) 72 yo F with hx of DM1, d CHF, AF presenting with DKA # DKA: in the setting of several days of gi illness and concerns that her insulin pump may not be working. Started on DKA protocol, anion gap of 21 on arrival already improving # DM1: per pateint her glucose has been well controlled recently, has insulin pump and followed by endocrinology, will check A1c, insulin gtt for now # diastolic heart failure, chronic: without e/o acute exacerbation currently but caution with IVF # PE: diagnosed in 2016, remains on AC, PE did occur following prolonged hospitalization, checking INR # a fib, paroxysmal: currently in SR # htn: continue losartan # IP status Patient new to my care. Old records reviewed and summarized as above. Patient high risk requireing ICU stay > 30 min critical care time spent in eval/mgmt of above
[2017-08-17 05:07] LABS: INR 4.18 (0.83-1.16); PROTIME(PATIENT) 39.9 SEC (12.0-15.0)
[2017-08-17] MEDS ORDERED: LEVOTHYROXINE 125 MCG TAB PO SCH (06:00)
[2017-08-17] MEDS: D10W 1,000 ML IV SCH (06:57)
[2017-08-17] MEDS ORDERED: D50W 25 GM/50 ML SYR IVP PRN (08:51)
[2017-08-17] MEDS ORDERED: MULTIVITAMINS 1 EACH TAB PO SCH (09:00)
[2017-08-17] MEDS ORDERED: CHOLECALCIFEROL VIT D3 1,000 UNITS TAB PO SCH (09:00)
[2017-08-17] MEDS ORDERED: DULoxetine 60 MG CAP PO SCH (09:00)
[2017-08-17 10:49] VITALS: BP 136/72
[2017-08-17] MEDS ORDERED: INSULIN LISPRO 100 UNIT/ML SC SCH (12:00)
--- NOTE | 2017-08-17 13:22 | ASDISCHSUM ---
Discharge Information Plan Status:Home with No Needs Medically Cleared to Leave:08/17/2017 Discharge Date:08/17/2017 CM D/C Disposition:Home, Routine, Self-Care ADT D/C Disposition:Home, Routine, Self-Care Projected Discharge Date:08/17/2017 12:00 AM Transportation at D/C: Discharge Delay Reason: Follow-Up Date:08/17/2017 12:00 AM Discharge Slot:2 - 12:01 pm - 18:00 pm Final Diagnosis:Diabetic ketoacidosis Placement Information Patient Contact Information Contact Name:VALENTÍN Relationship: Address:[address] City:[place] Alternate Phone: [facility]/Zip Code:[place] [address] Email: Financial Information Financial Class:Medicare Primary Plan Desc:MEDICARE INPATIENT Primary Plan Number:[id number] Secondary Plan Desc:[employer]/MDR SUPPLEMENT Secondary Plan Number:[id number] Assessment Information [facility] CM Progress Note CM Note CM Note Notes: Pt has just been admtted with DKA. She has a hx of DM1. [place] her . CM will follow for any d/c needs. Date Signed: 08/16/2017 03:42 PM Electronically Signed By:FLORIDALMA Corona Intervention Information
--- NOTE | 2017-08-17 13:24 | ASMTDCNOTE ---
Case Management Discharge Discharge Order Complete? Answers: Yes Patient to Obtain Answers: Independently Medications Transportation Arranged Answers: Family/Friends Family Notified Answers: Yes Notes: , [place] Discharge Comments Notes: Patient is d/c'ing home independently. No further CM needs. Date Signed: 08/17/2017 01:23 PM Electronically Signed By:Joana Bowling LCSW
[2017-08-18] MEDS ORDERED: WARFARIN SODIUM 2 MG TAB PO SCH (21:00)
== END 2017-08-17 13:30 | disposition home or self-care (01) | DRG 638 ==
LOC: F2N 15:11
PROVIDERS: ADMIT Internal Medicine; ATTEND Internal Medicine
DX: E10.10 Type 1 diabetes mellitus with ketoacidosis without coma (principal); I11.0 Hypertensive heart disease with heart failure; I50.32 Chronic diastolic (congestive) heart failure; I48.0 Paroxysmal atrial fibrillation; Z79.4 Long term (current) use of insulin; Z96.41 Presence of insulin pump (external) (internal); Z86.711 Personal history of pulmonary embolism; Z79.01 Long term (current) use of anticoagulants
CPT/HCPCS: 82435-PO; 82565-PO; 82947-PO; 84132-PO; 84295-PO; 84520-PO; 85014-PO; J1815

== ENCOUNTER 2017-12-28 23:06 | Emergency (ER) | payer OTHER, MEDICARE ==
--- NOTE | 2017-12-28 23:22 | EDPHY ---
H & P Stated Complaint: 600 blood sugar at home Time Seen by Provider: 12/28/17 23:21 HPI/ROS: HPI CHIEF COMPLAINT: High blood sugar. Per patient blood sugar over 600. HISTORY OF PRESENT ILLNESS: 72-year-old female, she is independent diabetic wears an insulin pump, she presents emergency room stating her blood sugars close to 600. She denies any significant planes denies chest pain or shortness of breath, denies abdominal pain, denies nausea vomiting or diarrhea. Denies recent illness. Denies fever. She states she has otherwise felt fine. She does report to me that she ate her normal breakfast, skipped lunch, and then ate leftover French food this evening. She did have a brief period approximately an hour her insulin pump battery ran out she did not receive any insulin for an hour. She then checked her blood sugar was over 500. She arrives to the emergency room concerning for hyperglycemia possible DKA. Past Medical History: Insulin-dependent diabetes, insulin pump, previous admission for DKA, PE, hypertension, AFib Past Surgical History: No recent surgery Social History: Denies drugs alcohol tobacco. Family History: Noncontributory. ROS REVIEW OF SYSTEMS: 10 Systems were reviewed and negative with the exception of the elements mentioned in the history of present illness. Exam Constitutional elderly nontoxic no acute distress triage nursing summary reviewed, vital signs reviewed, awake/alert. Appears well. Eyes normal conjunctivae and sclera, EOMI, PERRLA. HENT normal inspection, atraumatic, moist mucus membranes, no epistaxis, neck supple/ no meningismus, no raccoon eyes. Respiratory clear to auscultation bilaterally, normal breath sounds, no respiratory distress, no wheezing. Cardiovascular rate normal, regular rhythm, no murmur, no edema, distal pulses normal. Gastrointestinal soft, non-tender, no rebound, no guarding, normal bowel sounds, no distension, no pulsatile mass. Genitourinary no CVA tenderness. Musculoskeletal no midline vertebral tenderness, full range of motion, no calf swelling, no tenderness of extremities, no meningismus, good pulses, neurovascularly intact. Skin pink, warm, & dry, no rash, skin atraumatic. Neurologic awake, alert and oriented x 3, AAOx3, moves all 4 extremities equally, motor intact, sensory intact, CN II-XII intact, normal cerebellar, normal vision, normal speech. Psychiatric normal mood/affect. Heme/Lymph/Immune no lymphadenopathy. Differential Diagnosis: Includes but is not limited to in a particular order DKA, hyperglycemia, dehydration, electrolyte disturbance, infection, sepsis, bacteremia Medical Decision Making: Plan for this patient IV establishment IV fluid bolus , check electrolytes, check beta hydroxybutyrate, check UA for ketones, rule out DKA. Re-evaluation: PATIENT HAS NO KETONES IN HER URINE. PATIENT FEELS FINE. Patient is requesting be discharged home. No evidence the patient is in DKA. Patient does not have an anion gap bicarb is normal. Blood sugars into 270s. She received IV fluids here. However her urinalysis does show signs of infection. Will send urine culture. Keflex will be provided for infection coverage. P. O. Dose 1st given in emergency room. Take-home pack for home. Prescription for rest. Patient understands return emergency room develops worsening abdominal pain, fever, vomiting high blood sugars worsening symptoms. She is comfortable this plan. Source: Patient - Personal History Current Tetanus/Diphtheria Vaccine: Yes Current Tetanus Diphtheria and Acellular Pertussis (TDAP): Yes Tetanus Vaccine Date: 2016 - Medical/Surgical History Hx Asthma: No Hx Chronic Respiratory Disease: No Hx Diabetes: Yes Hx Cardiac Disease: No Hx Renal Disease: No Hx Cirrhosis: No Hx Alcoholism: No Hx HIV/AIDS: No Hx Splenectomy or Spleen Trauma: No Other PMH: TYPE 1 DIABETES, HYPOTHYROID, 2005-BINDU. lap band. bilateral rotator coff, left knee replaced - Social History Smoking Status: Former smoker Constitutional: Initial Vital Signs Temperature (C) 36.4 C 12/28/17 23:08 Heart Rate 103 H 12/28/17 23:08 Respiratory Rate 18 12/28/17 23:08 Blood Pressure 155/94 H 12/28/17 23:08 O2 Sat (%) 95 12/28/17 23:08 O2 Delivery Mode Room Air Allergies/Adverse Reactions: maltodextrin Allergy (Verified 12/28/17 23:12) Diarrhea, cramps Sulfa (Sulfonamide Antibiotics) Allergy (Verified 12/28/17 23:12) itching all over Home Medications: Medication Instructions Recorded Cholecalciferol Vit D3 [Vitamin D3 1,000 units PO DAILY 05/04/15 (*)] DULoxetine [Cymbalta 60 MG (*)] 60 mg PO DAILY 05/04/15 Levothyroxine [Synthroid 125 mcg 125 mcg PO DAILY06 05/04/15 (*)] Amitriptyline HCl [Elavil 10 mg 10 mg PO HS 05/24/15 (*)] Melatonin [Melatonin 5 mg] 5 mg PO HS PRN 05/24/15 Losartan Potassium [Cozaar 50 mg 100 mg PO HS 05/13/17 (*)] Warfarin Sodium [Coumadin 2MG (*)] 4 mg PO TH@05/13/17 Insulin Pump, Patient Own 1 ea MISC AD 08/16/17 Multivitamins [Multivitamin (*)] 1 each PO DAILY 08/16/17 Warfarin Sodium [Coumadin 3MG (*)] 6 mg PO SUMOTUWEFRSA@08/16/17 Cephalexin [Keflex] 500 mg PO Q6H #28 cap 12/29/17 Medical Decision Making - Data Points Laboratory Results: Laboratory Results 12/28/17 23:30 12/28/17 23:30 12/29/17 12/28/17 12/28/17 00:41 23:30 23:30 WBC 8.90 10^3/uL 10^3/uL (3.80-9.50) RBC 5.08 10^6/uL 10^6/uL (4.18-5.33) Hgb 15.2 g/dL g/dL (12.6-16.3) Hct 45.2 % % (38.0-47.0) MCV 89.0 fL fL (81.5-99.8) MCH 29.9 pg pg (27.9-34.1) MCHC 33.6 g/dL g/dL (32.4-36.7) RDW 13.1 % % (11.5-15.2) Plt Count 336 10^3/uL 10^3/uL (150-400) MPV 9.6 fL fL (8.7-11.7) Neut % (Auto) 50.1 % % (39.3-74.2) Lymph % (Auto) 36.5 % % (15.0-45.0) [place] % (Auto) 9.2 % % (4.5-13.0) Eos % (Auto) 3.1 % % (0.6-7.6) Baso % (Auto) 0.9 % % (0.3-1.7) Nucleat RBC Rel Count 0.0 % % (0.0-0.2) Absolute Neuts (auto) 4.45 10^3/uL 10^3/uL (1.70-6.50) Absolute Lymphs (auto) 3.25 10^3/uL H 10^3/uL (1.00-3.00) Absolute Monos (auto) 0.82 10^3/uL H 10^3/uL (0.30-0.80) Absolute Eos (auto) 0.28 10^3/uL 10^3/uL (0.03-0.40) Absolute Basos (auto) 0.08 10^3/uL 10^3/uL (0.02-0.10) Absolute Nucleated RBC 0.00 10^3/uL 10^3/uL (0-0.01) Immature Gran % 0.2 % % (0.0-1.1) Immature Gran # 0.02 10^3/uL 10^3/uL (0.00-0.10) Sodium 132 mEq/L L mEq/L (135-145) Potassium 3.9 mEq/L mEq/L (3.3-5.0) Chloride 101 mEq/L mEq/L (97-110) Carbon Dioxide 20 mEq/l L mEq/l (22-31) Anion Gap 11 mEq/L mEq/L (6-14) BUN 14 mg/dL mg/dL (7-23) Creatinine 0.8 mg/dL mg/dL (0.6-1.0) Estimated GFR > 60 Glucose 272 mg/dL H mg/dL (70-100) Calcium 9.0 mg/dL mg/dL (8.5-10.4) Total Bilirubin 0.7 mg/dL mg/dL (0.1-1.4) Conjugated Bilirubin 0.2 mg/dL mg/dL (0.0-0.5) Unconjugated Bilirubin 0.5 mg/dL mg/dL (0.0-1.1) AST 25 IU/L IU/L (14-46) ALT 27 IU/L IU/L (9-52) Alkaline Phosphatase 123 IU/L IU/L (38-126) Total Protein 6.6 g/dL g/dL (6.3-8.2) Albumin 3.9 g/dL g/dL (3.5-5.0) Lipase 209 IU/L IU/L (23-300) Beta-Hydroxybutyrate 0.05 mmol/L mmol/L (0.02-0.27) Urine Color YELLOW Urine Appearance HAZY Urine pH 5.0 (5.0-7.5) Ur Specific [place] 1.032 H (1.002-1.030) Urine Protein NEGATIVE (NEGATIVE) Urine Ketones NEGATIVE (NEGATIVE) Urine Blood 2+ H (NEGATIVE) Urine Nitrate NEGATIVE (NEGATIVE) Urine Bilirubin NEGATIVE (NEGATIVE) Urine Urobilinogen NEGATIVE EU EU (0.2-1.0) Ur Leukocyte Esterase 2+ H (NEGATIVE) Urine RBC 10-15 /hpf H /hpf (0-3) Urine WBC 10-15 /hpf H /hpf (0-3) Ur Epithelial Cells 1+ /lpf /lpf (NONE-1+) Urine Mucus TRACE /lpf /lpf (NONE-1+) Urine Glucose 3+ H (NEGATIVE) Medications Given: Discontinued Medications Sodium Chloride (Ns) 1,000 mls @ 0 mls/hr IV EDNOW ONE; Wide Open PRN Reason: Protocol Stop: 12/28/17 23:24 Last Admin: 12/28/17 23:23 Dose: 1,000 mls Departure - Departure Disposition: Home, Routine, Self-Care Clinical Impression: Hyperglycemia UTI (urinary tract infection) Qualifiers: Urinary tract infection type: acute cystitis Hematuria presence: with hematuria Qualified Code(s): N30.01 - Acute cystitis with hematuria Condition: Good Instructions: Diabetic Hyperglycemia (ED), Urinary Tract Infection in Women (ED ) Additional Instructions: 1. Monitor blood sugar closely. 2. Return to the emergency room if worsening symptoms Referrals: Rita Israel MD [Primary Care Provider] - As per Instructions Prescriptions: Cephalexin [Keflex] 500 mg PO Q6H #28 cap
[2017-12-28] MEDS ORDERED: NS 1,000 ML IV ONE (23:23)
[2017-12-28 23:36] LABS: PLATELET COUNT 336 10^3/uL (150-400)
[2017-12-29] MEDS ORDERED: CEPHALEXIN 500 MG CAP PO ONE (01:14)
[2017-12-29] MEDS ORDERED: CEPHALEXIN 500MG PREPACK#4 BTL TAKEHOME ONE (01:14)
[2017-12-29 01:25] VITALS: BP 133/74
== END 2017-12-29 01:25 | disposition home or self-care (01) ==
DX: E10.65 Type 1 diabetes mellitus with hyperglycemia (principal); N30.01 Acute cystitis with hematuria; E86.9 Volume depletion, unspecified; Z87.891 Personal history of nicotine dependence

== ENCOUNTER 2018-02-04 11:04 | Inpatient (IN) | payer OTHER, MEDICARE ==
[2018-02-04] MEDS ORDERED: NS 1,000 ML IV ONE ×3 (12:36→16:00)
--- NOTE | 2018-02-04 12:40 | EDPHY ---
H & P Time Seen by Provider: 02/04/18 11:22 HPI/ROS: CHIEF COMPLAINT: Hyperglycemia HISTORY OF PRESENT ILLNESS: Patient is a 69-year-old female with a history of type 1 diabetes who presents emergency department with elevated glucose. Patient states that she ran out of pump supplies yesterday. She has been giving herself insulin injections. She has felt extremely thirsty. Patient also states that she has been ill"with everything."She states it was an influenza type illness. She has had no abdominal pain. No nausea vomiting. No cough shortness of breath. Patient has previously been diagnosed with a pulmonary embolus and is on warfarin. REVIEW OF SYSTEMS: 10 systems were reveiwed and are negative with the exception of the elements mentioned in the history of present illness. Past Medical/Surgical History: Includes type 1 diabetes, hypothyroidism, pulmonary embolus Past surgical history: Includes orthopedic surgery Social history: The patient is Smoking Status: Former smoker Physical Exam: Vitals noted. GENERAL: No acute distress, alert. HEENT: Eyes normal to inspection, normal pharynx, dry mucous membranes. NECK: Normal, supple. RESPIRATORY: Clear to auscultation bilaterally, no rales, rhonchi or wheezing. CVS: Regular rate and rhythm, no rubs, murmurs, or gallops. ABDOMEN: Soft, nontender, nondistended, no organomegaly. BACK: Normal to inspection, no CVA tenderness. SKIN: Normal color, no rash, warm, dry. No pallor. EXTREMITIES: No pedal edema, no calf tenderness, no Homans sign or cords, no joint swelling. NEURO/PSYCH: Alert and oriented, normal mood and affect, normal motor sensory exam. No obvious cranial nerve deficit. Constitutional: Initial Vital Signs Temperature (C) 36.5 C 02/04/18 11:08 Heart Rate 88 02/04/18 11:08 Respiratory Rate 18 02/04/18 11:08 Blood Pressure 112/74 02/04/18 11:08 O2 Sat (%) 96 02/04/18 11:08 O2 Delivery Mode Room Air Allergies/Adverse Reactions: maltodextrin Allergy (Verified 02/04/18 11:07) Diarrhea, cramps Sulfa (Sulfonamide Antibiotics) Allergy (Verified 02/04/18 11:07) itching all over Home Medications: Medication Instructions Recorded DULoxetine [Cymbalta 60 MG (*)] 60 mg PO BID 05/04/15 Amitriptyline HCl [Elavil 10 mg 10 mg PO HS 05/24/15 (*)] Melatonin [Melatonin 5 mg] 5 mg PO HS PRN 05/24/15 Losartan Potassium [Cozaar 50 mg 100 mg PO HS 05/13/17 (*)] Warfarin Sodium [Coumadin 2MG (*)] 4 mg PO TH@21 05/13/17 Insulin Pump, Patient Own 1 ea MISC AD 08/16/17 Multivitamins [Multivitamin (*)] 1 each PO DAILY 08/16/17 Warfarin Sodium [Coumadin 3MG (*)] 6 mg PO SUMOTUWEFRSA@08/16/17 Levothyroxine [Synthroid 150 mcg 150 mcg PO DAILY06 02/04/18 (*)] Medical Decision Making - Diagnostics Imaging Results: Imaging Impressions Chest X-Ray 02/04/18 12:41 Impression: Negative chest. ED Course/Re-evaluation: In the emergency department discussed possible etiologies with the patient and . I answered all her questions. IV was placed. Patient was given normal saline 1 L IV for hydration. Laboratory studies were obtained. Point of care glucose was greater than 500 Patient's sodium is low at 129. Potassium is elevated 5.7. Anion gap is elevated at 26 %period% creatinine is 1.1. Liver function tests are unremarkable. Patient's white count is elevated at 21. Hematocrit is 47. Platelet count is 417. Based on these laboratory studies the patient was started on insulin drip per protocol. I discussed case with the hospitalist service. Patient will be admitted for further care. Differential Diagnosis: My differential includes but is not limited to hyperglycemia, DKA, bacteremia, sepsis, influenza, viral illness Critical Care Time: The patient required 35 min of critical care time. This is exclusive of any on unbundled procedures. This was due the patient's acidosis, rechecks, consultation with the hospitalist service, insulin drip. - Data Points Laboratory Results: Laboratory Results 02/04/18 12:23 02/04/18 12:23 02/04/18 02/04/18 02/04/18 13:30 12:23 12:23 WBC RBC Hgb Hct MCV MCH MCHC RDW Plt Count MPV Neut % (Auto) Lymph % (Auto) [place] % (Auto) Eos % (Auto) Baso % (Auto) Nucleat RBC Rel Count Absolute Neuts (auto) Absolute Lymphs (auto) Absolute Monos (auto) Absolute Eos (auto) Absolute Basos (auto) Absolute Nucleated RBC Immature Gran % Immature Gran # PT 17.6 SEC H SEC (12.0-15.0) INR 1.43 H (0.83-1.16) APTT 29.5 SEC SEC (23.0-38.0) Sodium 129 mEq/L L mEq/L (135-145) Potassium 5.7 mEq/L H mEq/L (3.5-5.2) Chloride 93 mEq/L L mEq/L (97-110) Carbon Dioxide 10 mEq/l L mEq/l (22-31) Anion Gap 26 mEq/L H mEq/L (6-14) BUN 24 mg/dL H mg/dL (7-23) Creatinine 1.1 mg/dL H mg/dL (0.6-1.0) Estimated GFR 49 Glucose 625 mg/dL H* mg/dL (70-100) POC Glucose Calcium 9.1 mg/dL mg/dL (8.5-10.4) Total Bilirubin 1.0 mg/dL mg/dL (0.1-1.4) Conjugated Bilirubin 0.4 mg/dL mg/dL (0.0-0.5) Unconjugated Bilirubin 0.6 mg/dL mg/dL (0.0-1.1) AST 25 IU/L IU/L (14-46) ALT 25 IU/L IU/L (9-52) Alkaline Phosphatase 122 IU/L IU/L (38-126) Total Protein 6.7 g/dL g/dL (6.3-8.2) Albumin 4.1 g/dL g/dL (3.5-5.0) Urine Color PALE YELLOW Urine Appearance HAZY Urine pH 5.0 (5.0-7.5) Ur Specific [place] 1.023 (1.002-1.030) Urine Protein NEGATIVE (NEGATIVE) Urine Ketones 2+ H (NEGATIVE) Urine Blood 2+ H (NEGATIVE) Urine Nitrate NEGATIVE (NEGATIVE) Urine Bilirubin NEGATIVE (NEGATIVE) Urine Urobilinogen NEGATIVE EU EU (0.2-1.0) Ur Leukocyte Esterase TRACE H (NEGATIVE) Urine RBC 10-15 /hpf H /hpf (0-3) Urine WBC 10-15 /hpf H /hpf (0-3) Ur Epithelial Cells TRACE /lpf /lpf (NONE-1+) Urine Bacteria TRACE /hpf H /hpf (NONE SEEN) Urine Mucus TRACE /lpf /lpf (NONE-1+) Urine Glucose 3+ H (NEGATIVE) 02/04/18 02/04/18 12:23 12:15 WBC 21.18 10^3/uL H 10^3/uL (3.80-9.50) RBC 5.09 10^6/uL 10^6/uL (4.18-5.33) Hgb 15.4 g/dL g/dL (12.6-16.3) Hct 47.4 % H % (38.0-47.0) MCV 93.1 fL fL (81.5-99.8) MCH 30.3 pg pg (27.9-34.1) MCHC 32.5 g/dL g/dL (32.4-36.7) RDW 13.4 % % (11.5-15.2) Plt Count 417 10^3/uL H 10^3/uL (150-400) MPV 10.4 fL fL (8.7-11.7) Neut % (Auto) 87.8 % H % (39.3-74.2) Lymph % (Auto) 8.3 % L % (15.0-45.0) [place] % (Auto) 3.0 % L % (4.5-13.0) Eos % (Auto) 0.0 % L % (0.6-7.6) Baso % (Auto) 0.2 % L % (0.3-1.7) Nucleat RBC Rel Count 0.0 % % (0.0-0.2) Absolute Neuts (auto) 18.58 10^3/uL H 10^3/uL (1.70-6.50) Absolute Lymphs (auto) 1.76 10^3/uL 10^3/uL (1.00-3.00) Absolute Monos (auto) 0.64 10^3/uL 10^3/uL (0.30-0.80) Absolute Eos (auto) 0.01 10^3/uL L 10^3/uL (0.03-0.40) Absolute Basos (auto) 0.04 10^3/uL 10^3/uL (0.02-0.10) Absolute Nucleated RBC 0.00 10^3/uL 10^3/uL (0-0.01) Immature Gran % 0.7 % % (0.0-1.1) Immature Gran # 0.15 10^3/uL H 10^3/uL (0.00-0.10) PT INR APTT Sodium Potassium Chloride Carbon Dioxide Anion Gap BUN Creatinine Estimated GFR Glucose POC Glucose 596 mg/dL H* mg/dL (70-100) Calcium Total Bilirubin Conjugated Bilirubin Unconjugated Bilirubin AST ALT Alkaline Phosphatase Total Protein Albumin Urine Color Urine Appearance Urine pH Ur Specific [place] Urine Protein Urine Ketones Urine Blood Urine Nitrate Urine Bilirubin Urine Urobilinogen Ur Leukocyte Esterase Urine RBC Urine WBC Ur Epithelial Cells Urine Bacteria Urine Mucus Urine Glucose Microbiology Results: MICROBIOLOGY 02/04/18 12:52 Nasal, Sinus - Swab Respiratory Panel (PCR) - Final No Organism Detected By Pcr Medications Given: Potassium Chloride (Potassium Cl 10 Meq (Premix)) 100 mls @ 200 mls/hr IV Q30M DELISA Stop: 02/04/18 16:29 Last Admin: 02/04/18 14:34 Dose: Not Given Discontinued Medications Sodium Chloride (Ns) 1,000 mls @ 0 mls/hr IV ONCE ONE PRN Reason: Wide Open Stop: 02/04/18 12:37 Last Admin: 02/04/18 12:46 Dose: 1,000 mls Sodium Chloride (Ns) 1,000 mls @ 0 mls/hr IV EDNOW ONE; Wide Open PRN Reason: Protocol Stop: 02/04/18 12:41 Last Admin: 02/04/18 14:26 Dose: 1,000 mls Insulin Human Regular 100 unit / Miscellaneous Medication 1 ea/ Sodium Chloride 101 mls @ 0 mls/hr IV EDNOW ONE; Per Protocol PRN Reason: Protocol Stop: 02/04/18 14:09 Last Admin: 02/04/18 14:42 Dose: 101 mls Point of Care Test Results: Chemistry 02/04/18 12:15 POC Glucose 596 mg/dL H* mg/dL (70-100) Departure - Departure Disposition: [facility] Acute Clinical Impression: Diabetic ketoacidosis Qualifiers: Diabetes mellitus type: type 1 Diabetes mellitus complication detail: without coma Qualified Code(s): E10.10 - Type 1 diabetes mellitus with ketoacidosis without coma Condition: Good
[2018-02-04 13:07] LABS: PLATELET COUNT 417 10^3/uL (150-400)
[2018-02-04 13:18] LABS: INR 1.43 (0.83-1.16); PROTIME(PATIENT) 17.6 SEC (12.0-15.0)
[2018-02-04] MEDS: NS 1,000 ML IV ONE ×2 (13:29→14:26)
[2018-02-04] MEDS ORDERED: INSULIN REGULAR HUMAN 100 UNIT, COSIGN. REQUIRED 1 EA in NS 100 ML IV ONE (14:08)
[2018-02-04] MEDS: POTASSIUM Cl (KCl) 100 ML IV SCH ×2 (14:34→17:41)
[2018-02-04] MEDS ORDERED: D10W 1,000 ML IV PRN (15:00)
[2018-02-04] MEDS ORDERED: MELATONIN 3 MG TAB PO PRN (15:36)
[2018-02-04] MEDS ORDERED: D50W 25 GM/50 ML SYR IVP PRN (16:30)
[2018-02-04] MEDS ORDERED: NS 500 ML IV ONE ×2 (17:00→18:00)
[2018-02-04] MEDS: INSULIN REGULAR HUMAN 100 UNIT in NS 100 ML IV SCH (17:03)
[2018-02-04] MEDS: ENOXAPARIN 40 MG/0.4 ML SYR SC SCH (17:47)
--- NOTE | 2018-02-04 18:45 | GHP ---
DATE OF ADMISSION: 02/04/2018 CHIEF COMPLAINT: DKA. HISTORY OF PRESENT ILLNESS: This is a 72-year-old female with a history of type 1 diabetes. She is on an insulin pump. She states several days ago that the pump began not to work and she was unable t o replace the cartridge. She has been taking shots of regular insulin to cover herself, but started feeling really unwell today. She knew that her blood sugars were in the 600s. She denies any fevers or chills. Although she had been feeling somewhat unwell prior. Actually, the patient's history is not that great. Currently she is somewhat tachypneic from her acidosis. At this point, she is deny ing any fevers or chills, cough, abdominal pain, or dysuria or diarrhea. REVIEW OF SYSTEMS: Limited review of systems obtained secondary to patient's difficulty speaking. P ertinent positives and negatives in the HPI. PAST MEDICAL HISTORY: 1. Type 1 diabetes. 2. Hypothyroidism. 3. Pulmonary embolism. MEDICATIONS: Reviewed. SOCIAL HISTORY: . No smoking or alcohol. FAMILY HISTORY: Reviewed and noncontributory. PHYSICAL EXAMINATION: VITAL SIGNS: Afebrile, blood pressure 135/55, heart rate 105, respiratory rat e in the low 30s. Oxygen saturation 100% on room air. GENERAL: The patient is well developed, in n o apparent distress. HEENT: Nonicteric sclerae. Extraocular is intact. Very dry mucous membranes. NECK: Supple. No thyromegaly. LUNGS: Good effort. Clear to auscultation bilaterally. CARDIOVA SCULAR: Tachycardic. No murmurs or gallops. ABDOMEN: Positive bowel sounds. Soft, nontender, non distended. No hepatosplenomegaly. EXTREMITIES: No clubbing, cyanosis, or edema. SKIN: Without ra sh, dry, intact. NEUROLOGIC: Alert and oriented x3. Moving all 4 extremities equally. PSYCHIATRIC : Normal affect. LABS: White blood cell count is 21,000, hemoglobin 15, platelets of 415. INR is 1.4. Chemistry reena ws sodium 132, potassium 4.5, CO2 of 7, anion gap of 23, creatinine 1.1, glucose 515. Lactate is ocsar vated at 4. Beta hydroxybutyrate is positive. LFTs are normal. UA shows trace leukocyte esterase. A venous blood gas, pH of 7.04, bicarb of 6, CO2 21. Chest x-ray personally reviewed and interprete d as negative. ASSESSMENT: This is a 72-year-old female presenting with diabetic ketoacidosis due to malfunction of her insulin pump. PLAN: 1. DKA, placing patient on the protocol. 2. Anion gap metabolic acidosis secondary to above. 3. Lactic acidosis. I believe this can be seen with severe ketoacidosis. There are no other signs of infection. We will continue to watch as we treat the DKA. 4. History of pulmonary embolism. She has subtherapeutic INR. We will start DVT prophylaxis dosing of Lovenox until Coumadin is therapeutic. /[id number]/MODL
[2018-02-04] MEDS: AMITRIPTYLINE HCL 10 MG TAB PO SCH (20:22)
[2018-02-04] MEDS: LOSARTAN POTASSIUM 50 MG TAB PO SCH (20:23)
[2018-02-04] MEDS: DULoxetine 60 MG CAP PO SCH (20:23)
[2018-02-04] MEDS ORDERED: WARFARIN SODIUM 3 MG TAB PO SCH (21:00)
[2018-02-04] MEDS ORDERED: NS 1,000 ML IV SCH (22:00)
[2018-02-05] MEDS: D10W 1,000 ML IV SCH ×2 (01:31→06:17)
[2018-02-05] MEDS: NS 1,000 ML IV SCH ×2 (02:25→10:51)
[2018-02-05] MEDS: LEVOTHYROXINE 150 MCG TAB PO SCH (05:08)
[2018-02-05] MEDS: INSULIN REGULAR HUMAN 100 UNIT in NS 100 ML IV SCH (05:33)
[2018-02-05] MEDS ORDERED: D50W 25 GM/50 ML SYR IVP PRN (06:52)
[2018-02-05] MEDS ORDERED: INSULIN GLARGINE 100 UNITS/ML UNIT SC SCH ×3 (07:00→13:45)
[2018-02-05] MEDS: ENOXAPARIN 40 MG/0.4 ML SYR SC SCH (08:33)
[2018-02-05] MEDS: DULoxetine 60 MG CAP PO SCH ×2 (08:33→22:20)
--- NOTE | 2018-02-05 09:49 | ASMTCMCOM ---
CM Note CM Note Notes: 72yo female admitted for DKA after her insulin pump stopped working. She has a Hx of DM-1, Hypothyroid, and PE. Patient lives with her in [place]. May not have discharge needs. Date Signed: 02/05/2018 09:49 AM Electronically Signed By:Natalie Simpson LCSW
--- NOTE | 2018-02-05 10:02 | PDMN ---
Medical Necessity Medical necessity: [facility] [place] [facility] [place]130 Diabetes: 72 yo w/ hx DM on insulin pump presents w / DKA. Meets [facility] [place] criteria for VBG pH 7.05, BG >600, b-hydoxybutyrate 8.51, Anion gap 26. Pt also tachypneac and tachycardic. Hx DM, PE, hypothyroidism
[2018-02-05] MEDS ORDERED: PROTOCOL POTASSIUM 1 DOSE MISC PRN ×2 (10:06→10:42)
[2018-02-05] MEDS: INSULIN LISPRO 100 UNIT/ML SC SCH ×3 (10:11→17:31)
[2018-02-05] MEDS: POTASSIUM Cl (KCl) 100 ML IV SCH ×3 (10:52→10:54)
--- NOTE | 2018-02-05 12:10 | CPEKG ---
Test Reason : OPEN Blood Pressure : / mmHG Vent. Rate : 106 BPM Atrial Rate : 106 BPM P-R Int : 161 ms QRS Dur : 083 ms QT Int : 334 ms P-R-T Axes : 044 -34 061 degrees QTc Int : 444 ms Sinus tachycardia Probable left atrial enlargement Left axis deviation Probable anterior infarct, age indeterminate artifact present Confirmed by Lee Corona ([id number]) on 02/05/2018 12:10:15 PM Referred By: Confirmed By:Lee Corona
--- NOTE | 2018-02-05 13:49 | HOSPPROG ---
Hospitalist Progress Note Assessment/Plan: * DKA -gap closed - changed to Lantus and advance diet * DM 1 -missing piece on insulin pump did not arrive in mail as scheduled -continue SQ long acting insulin until full pump supplies acquired * Metabolic encephalopathy -confused on admission - now improved but per RN still lingering cognitive concerns -consult ST for cog eval to assess ongoing ability to manage insulin pump * Pulmonary embolism -INR subtherapeutic on admission -prophylactic Lovenox until INR > 2 * Leukocytosis -suspect reactive - will follow Subjective: NO new complaints. Objective: Vital Signs Temp Pulse Resp BP Pulse Ox 36.5 C 76 17 131/66 H 99 02/05/18 12:00 02/05/18 12:00 02/05/18 12:00 02/05/18 12:00 02/05/18 12:00 Laboratory Results 02/05/18 11:10 02/04/18 02/05/18 02/06/18 05:59 05:59 05:59 Intake Total 6895 Output Total 2150 450 Balance 4745 -450 PT 17.6 SEC (12.0-15.0) H 02/04/18 12:23 INR 1.43 (0.83-1.16) H 02/04/18 12:23 EKG viewed, my personal interpretation is - no ischemic ST changes cxr - negative - Physical Exam Constitutional: no apparent distress, appears nourished, not in pain Cardiovascular: regular rate and rhythym, no murmur, rub, or gallop Respiratory: no respiratory distress, no rales or rhonchi, clear to auscultation Gastrointestinal: normoactive bowel sounds, soft, non-tender abdomen, no palpable masses Skin: no rashes or abrasions, no fluctuance, no induration Psychiatric: interacting appropriately, thought process linear, poor insight, other (pleasant and alert but continues to be poor historian, tough to figure out what went wrong), No encephalopathic ICD10 Worksheet Patient Problems: Problems Problem Status Onset Hyperglycemia due to type 1 diabetes mellitus Acute Abdominal pain Acute Hyponatremia Acute Cough Acute Diarrhea Acute Chronic Disease Mgmt/Transitional Care Acute Diabetic ketoacidosis Acute
[2018-02-05] MEDS ORDERED: WARFARIN SODIUM 4 MG TAB PO ONE (16:00)
[2018-02-05] MEDS ORDERED: WARFARIN SODIUM 3 MG TAB PO ONE (16:00)
[2018-02-05] MEDS ORDERED: POTASSIUM CL 10 MEQ TAB PO ONE ×2 (19:53→22:30)
[2018-02-05] MEDS: LOSARTAN POTASSIUM 50 MG TAB PO SCH (22:20)
[2018-02-05] MEDS: AMITRIPTYLINE HCL 10 MG TAB PO SCH (22:21)
--- NOTE | 2018-02-05 22:55 | HOSPPROG ---
Hospitalist Progress Note Assessment/Plan: Hospitalist cross cover note Paged by RN at approximately 8:10 p.m. regarding patient had been dressed and was on her way to eggs the floor. She stated that she was leaving in that she does not have a room she is not here for any kind of treatment and she was will simply here for a conference. Patient was admitted yesterday for DKA. She also was noted to have a metabolic encephalopathy at that appear to clear in the morning and throughout the day until this evening. Patient is oriented to person intermittently month and year but not the date. She believes she is at a hotel for a conference and states she just got here 20 min ago. She is quite paranoid she refuses to provide any details as to where she plans to go. She is unable to provide me a description of her plans to get out of the hospital. She refused to to tell me who her was or his phone number. She has refused all labs that she states there is nothing wrong with her and she is not ill. I spoke with the patient. She is in no acute distress. She is quite agitated that we will let her leave. When I ask her what she is doing in the hospital she states I am not at [facility]. I am here for a conference any just got here 20 min ago. When asked the date patient states that is February 07, 2018. Per the RN patient previously was not able to tell them the date either. I spoke to patient's Dexter who noted that patient was admitted previously for DKA and had a similar episode at that time. Prior to her hospitalization patient has not had any increased episodes of confusion or memory deficits. Patient is on several medications which at this time patient absolutely denies that she takes anything. After discussion with the patient's regarding need to ensure her safety advised that a medical detainer on her is required to keep her from leaving the hospital as she is clearly confused at this time. Placed at 9:00 p.m. Discussed further potential need for medications to assist with her agitation versus having family stay with the patient to assist with redirection which Dexter is amenable to doing and will plan to stay overnight. Advised that as patient is quite agitated and refusing lab draws or glucose checks that we will not forcibly obtain lab samples at this time and will continue to encourage patient to us allow was to do so. is amenable to this plan. Based on his previous experiences during patient's hospital stays he anticipates that she should clear her mentation by morning. Objective: Vital Signs Temp Pulse Resp BP Pulse Ox 36.6 C 71 14 172/97 H 97 02/05/18 16:18 02/05/18 16:18 02/05/18 16:18 02/05/18 22:20 02/05/18 16:18 Laboratory Results 02/05/18 18:20 02/04/18 02/05/18 02/06/18 05:59 05:59 05:59 Intake Total 6895 2389 Output Total 2150 890 Balance 4745 1499 PT 17.6 SEC (12.0-15.0) H 02/04/18 12:23 INR 1.43 (0.83-1.16) H 02/04/18 12:23 ICD10 Worksheet Patient Problems: Problems Problem Status Onset Diabetic ketoacidosis Acute Abdominal pain Acute Chronic Disease [facility]/Transitional Care Acute Cough Acute Diarrhea Acute Hyperglycemia due to type 1 diabetes mellitus Acute Hyponatremia Acute
[2018-02-06 05:41] LABS: PLATELET COUNT 308 10^3/uL (150-400)
[2018-02-06] MEDS ORDERED: POTASSIUM CL 10 MEQ TAB PO ONE ×2 (07:42→10:30)
[2018-02-06] MEDS ORDERED: PROTOCOL K PHOSPHATE 1 DOSE IV PRN (08:42)
[2018-02-06 08:49] VITALS: BP 152/108
[2018-02-06] MEDS: LEVOTHYROXINE 150 MCG TAB PO SCH (10:23)
[2018-02-06] MEDS: DULoxetine 60 MG CAP PO SCH (10:23)
[2018-02-06] MEDS: INSULIN LISPRO 100 UNIT/ML SC SCH ×2 (10:24→13:23)
[2018-02-06] MEDS: ENOXAPARIN 40 MG/0.4 ML SYR SC SCH (10:40)
--- NOTE | 2018-02-06 14:43 | PDIAF ---
- Diagnosis Diagnosis: DKA - HgA1c 11.8 - uncontrolled DM 1 Code Status: Full Code - Medication Management Discharge Medications: electronically signed and located in the Home Medication List. - Orders Services needed: Home Care, Registered Nurse, Occupational Therapy, Speech Language Pathologist (cognition) Home Care Face to Face: I certify that this patient was under my care and that I had the required [id number] encounter meeting the encounter requirements on the discharge day. My findings support the fact that the patient is homebound as defined in Home Care Face to Face Continued: CMS Chapter 7 Medicare Benefits Manual 30.1.1 , The condition of the patient is such that there exists a normal inability to leave home and consequently, leaving home would require a considerable and taxing effort. Isolation Type: None Diet Recommendation: ADA 2000 consistent carb - Follow Up Care Current Providers and Referrals: Rita Israel MD [Primary Care Provider] - As per Instructions Margarita Jimenez MD [Medical Doctor] -
--- NOTE | 2018-02-06 15:24 | ASMTDCNOTE ---
Case Management Discharge Discharge Order Complete? Answers: Yes Patient to Obtain Answers: via Family Medications Transportation Arranged Answers: Family/Friends EMTALA Complete Answers: No Case Management Transport Answers: No Form Complete Faxed Final Orders Answers: Yes Agency/Facility Transfer Answers: Yes Report Printed & Faxed to Receiving Agency Family Notified Answers: Yes Discharge Comments Notes: Pts case discussed w/ ESCOBAR Gomez. CM met w/ pt and family for dispo planning. Pt and family are interested in HC services. Referral made to [facility]. [facility] is able to accept. Patricia will call to give report. CM available for changes. Plan: [facility]; RN, OT, SPL Date Signed: 02/06/2018 03:24 PM Electronically Signed By:TONIO Morris
--- NOTE | 2018-02-06 15:25 | ASDISCHSUM ---
Discharge Information Plan Status:Home with Home Health Medically Cleared to Leave:02/05/2018 Discharge Date:02/06/2018 03:21 PM CM D/C Disposition: ADT D/C Disposition:Home Health Service Projected Discharge Date:02/06/2018 11:00 AM Transportation at D/C: Discharge Delay Reason: Follow-Up Date:02/06/2018 11:00 AM Discharge Slot: Final Diagnosis:DKA Placement Information Referral Type:*Home Health Care Services Referral ID:[id number] Provider Name:[facility] Address 1:[address] [place] [address] Address 2: City:[place] Selection Factors: State:[place] Patient Contact Information Contact Name:VALENTÍN Relationship: Address:[address] City:[place] Alternate Phone: State/Zip Code:[place] [address] Email: Financial Information Financial Class:Medicare Primary Plan Desc:MEDICARE INPATIENT Primary Plan Number:[id number] Secondary Plan Desc:AARP/MDR SUPPLEMENT Secondary Plan Number:[id number] Assessment Information [facility] CM Progress Note CM Note CM Note Notes: 72yo female admitted for DKA after her insulin pump stopped working. She has a Hx of DM-1, Hypothyroid, and PE. Patient lives with her in [place]. May not have discharge needs. Date Signed: 02/05/2018 09:49 AM Electronically Signed By:Natalie Simpson LCSW LACE JOANN Length of stay for Answers: 2 days current admission Acuity / Level of Answers: Yes Care: Did the patient have an inpatient admission? Comorbidities - select Answers: Diabetes (uncontrolled or all that apply controlled) # of Emergency department Answers: 3-4 visits in the last 6 months Score: 9 Date Signed: 02/06/2018 03:24 PM Electronically Signed By:TONIO Morris Case Management Discharge Plan Note Case Management Discharge Discharge Order Complete? Answers: Yes Patient to Obtain Answers: via Family Medications Transportation Arranged Answers: Family/Friends EMTALA Complete Answers: No Case Management Transport Answers: No Form Complete Faxed Final Orders Answers: Yes Agency/Facility Transfer Answers: Yes Report Printed & Faxed to Receiving Agency Family Notified Answers: Yes Discharge Comments Notes: Pts case discussed w/ ESCOBAR Gomez. CM met w/ pt and family for dispo planning. Pt and family are interested in HC services. Referral made to [facility]. [facility] is able to accept. Patricia will call to give report. CM available for changes. Plan: [facility]; RN, OT, [facility] Date Signed: 02/06/2018 03:24 PM Electronically Signed By:OTNIO Morris Intervention Information Intervention Type:*Incorrect Registration Date of Service:02/05/2018 09:22 AM Patient Type:Observation Staff Member:Latonya Ley Hours: Discipline: Severity: Comment:
--- NOTE | 2018-02-06 19:18 | GDS ---
DISCHARGE DIAGNOSES: 1. Diabetic ketoacidosis. 2. Diabetes type 1 uncontrolled with hemoglobin A1c of 11.8. 3. Metabolic encephalopathy due to diabetic ketoacidosis. 4. History of pulmonary embolism. 5. Possible underlying dementia. HISTORY: The patient is a 72-year-old female with type 1 diabetes, on insulin pump. She presented w ith DKA. She reports missing a crucial piece on her insulin pump that she requested it arrive via greg l order but it never arrived. Further history reveals however that she does suffer from some memory dysfunction and there was grave concern that she is no longer able to self manage her insulin pump. Her hemoglobin A1c of 11.8 would be consistent with this. The patient is very defensive regarding he r possible memory loss and in denial. I encouraged the family to take a more involved role in her di abetes management. They requested home health which I have arranged. They plan to follow up very cecy sely with Dr. Jimenez, her marine propulsion technician. Although there may be some baseline dementia, during this hospitalization she became extremely confus ed consistent with an acute metabolic encephalopathy due to her DKA. She was extremely disoriented a nd tried to leave in this state of confusion and had to be put on medical detainer. Again she is in denial that this happened but is clearly documented and remarked upon by multiple physicians and nurs es here that her mental status was extremely altered. She did improve on the day of discharge to the point of her family being comfortable taking her home. They have concerns keeping her in the hospital another night that she may escalate again. She will be under her 's 24/7 supervision at the time of discharge. A cognitive evaluation during thi s hospitalization, she only scored a 14/30. It is unclear to what degree this is acute versus chroni c. I think she needs ongoing speech therapy for cognition upon hospital discharge. DISCHARGE MEDICATIONS: Please see computer record for full detailed list. There are no new medicati ons given at time of hospital discharge. DISCHARGE INSTRUCTIONS: 1. Follow up very closely with Endocrinology, Dr. Katerina Jimenez, for trouble shooting her insul in pump management and to improve her baseline diabetes control. 2. Home health for occupational therapy, speech therapy, cognition and RN. 3. Greater than 30 minutes' time spent arranging this discharge. Patient seen and examined by me on the date of discharge. /[id number]/MODL
[2018-02-09] MEDS ORDERED: WARFARIN SODIUM 2 MG TAB PO SCH (21:00)
== END 2018-02-06 15:21 | disposition home health service (06) | DRG 637 ==
LOC: OBSVTOIN 14:13 → F2N 15:25 → F3E 02-05 16:15
PROVIDERS: ADMIT Internal Medicine; ATTEND Internal Medicine
DX: E10.10 Type 1 diabetes mellitus with ketoacidosis without coma (principal); G93.41 Metabolic encephalopathy; F03.90 Unspecified dementia, unspecified severity, without behavioral disturbance, psychotic disturbance, mood disturbance, and anxiety; Z86.711 Personal history of pulmonary embolism
CPT/HCPCS: 83605-PO; 92523-GN; 97161-GP; G8978-GP-CI; G8979-GP-CI; G8980-GP-CI; G9168-GN-CK; G9169-GN-CJ; J1650; J1815; J3480

== ENCOUNTER 2018-04-12 08:28 | Inpatient (IN) | payer OTHER ==
[2018-04-12] MEDS ORDERED: NS 1,000 ML IV ONE ×3 (08:34→11:25)
[2018-04-12] MEDS ORDERED: D10W 1,000 ML IV ONE (09:05)
[2018-04-12] MEDS ORDERED: INSULIN REGULAR HUMAN 100 UNIT, COSIGN. REQUIRED 1 EA in NS 100 ML IV ONE (09:05)
[2018-04-12] MEDS ORDERED: D50W 25 GM/50 ML SYR IVP PRN ×2 (09:05→13:30)
--- NOTE | 2018-04-12 09:16 | EDPHY ---
HPI/HX/ROS/PE/MDM Narrative: CHIEF COMPLAINT: Possible DKA HPI: This patient is a 71 y/o female with history of diabetes and several prior occurrences of diabetic ketoacidosis. She presents today at the request of her move coordinator for probable recurrent DKA and possible UTI. Her family at bedside states that her BGL began climbing rapidly yesterday from 200 to 600 in about one hour. They suspect she may have missed her dose of long-actin insulin last night. They noted that she began breathing rapidly yesterday evening around 11:00pm. They additionally report the patient seems to have difficulty speaking compared to usual and some declines in memory. She has been admitted four times in the past two months for similar presentation, at [facility] and here at [facility]. No chest pain, fever, vomiting, diarrhea , or other associated symptoms. REVIEW OF SYSTEMS: A comprehensive 10 system review of systems is otherwise negative aside from elements mentioned in the history of present illness and medical decision making. PMH: Type 1 diabetes mellitus. Dementia. SOCIAL HISTORY: Dr. Rita Israel PCP. and daughter at bedside. Her generally helps her manage her medications. PHYSICAL EXAM: General:Patient is alert, rapid breathing, rate 32. ENT:Eyes are normal to inspection. ENT inspection normal. Neck: Normal inspection. Full range of motion. Respiratory:No respiratory distress. Breath sounds normal bilaterally. Cardiovascular: Regular rate and rhythm. Strong peripheral pulses. Normal cap refill. Abdomen:The abdomen is nontender to palpation. There are no peritoneal signs. There are normal bowel sounds. Back: Normal to inspection. No tenderness to palpation. Skin: Normal color. No rash. Warm and dry. Extremities: Normal appearance. Full range of motion. Neuro: Oriented x3. Normal motor function. Normal sensory function. ED Course: 73 y/o female presents for evaluation of possible DKA. She has rapid, labored breathing. She has had DKA several times within the past two months and her presentation today is similar. Plan for labs including CBC, chemistries, I-stat , UA, ABGs. 9:05 Alerted by tech of critical lab results by I-stat. BGL > 700. CO2 6. Laboratory chemistries pending. Plan to administer Humulin per protocol. Reassessed patient. Discussed results with her and her family. Plan to admit for further management. EKG was ordered and interpreted by myself. Please see [employer] system for official reading. 9:27 Spoke with hospitalist service. Dr. Morel accepts admission for DKA. 9:42 Critical labs reported. Blood glucose is 1019. K 6.8. CO2 is < 5. pH 6.9. UA positive for UTI. Plan to administer 1gm IV Rocephin. 12:52 Patient has remained in the ED for management due to lack of beds in the hospital, but will now be transferred to the floor under the care of Dr. Morel as above. I spent a total of 130 minutes of critical care time in obtaining history, performing a physical exam, bedside monitoring of interventions, collecting and interpreting tests and discussion with consultants but not including time spent performing procedures. MDM: This elderly patient presents with severe DKA as defined by very low pH and altered mental status. She was immediately started on DKA protocol by myself and was somewhat slow to respond to this therapy. She will clearly require ICU- level care. The patient appears to have concommitant UTI. This may be the etiology of her DKA but I also suspect home medical management is sub-optimal due to potential cognitive issues. - Data Points Laboratory Results: Laboratory Results 04/12/18 09:07 04/12/18 09:07 04/12/18 04/12/18 04/12/18 09:15 09:07 09:07 WBC RBC Hgb POC Hgb Hct POC Hct MCV MCH MCHC RDW Plt Count MPV Neut % (Auto) Lymph % (Auto) [place] % (Auto) Eos % (Auto) Baso % (Auto) Nucleat RBC Rel Count Absolute Neuts (auto) Absolute Lymphs (auto) Absolute Monos (auto) Absolute Eos (auto) Absolute Basos (auto) Absolute Nucleated RBC Immature Gran % Immature Gran # Puncture Site VENOUS Patient Temperature 37.0 DEGREES DEGREES VBG pH 6.91 L (7.31-7.42) VBG HCO3 3 mEQ/L L mEQ/L (22-26) VBG Total CO2 4 mEq/L L mEq/L (21-27) VBG O2 Saturation 92 % H % (65-75) VBG Base Excess -29.9 mEq/L L mEq/L (-2.5-2.5) Mixed VBG pCO2 17 mmHg L mmHg (40-44) Mixed VBG pO2 107 mmHG H mmHG (35-40) POC Sodium Sodium 128 mEq/L L mEq/L (135-145) POC Potassium Potassium 6.8 mEq/L H* mEq/L (3.5-5.2) POC Chloride Chloride 93 mEq/L L mEq/L (97-110) Carbon Dioxide < 5 mEq/l L* mEq/l (22-31) POC Total CO2 Anion Gap TNP POC BUN BUN 21 mg/dL mg/dL (7-23) Creatinine 1.3 mg/dL H mg/dL (0.6-1.0) POC Creatinine Estimated GFR 40 Glucose 1019 mg/dL H* mg/dL (70-100) POC Glucose Calcium 9.9 mg/dL mg/dL (8.5-10.4) Beta-Hydroxybutyrate 10.50 mmol/L H mmol/L (0.02-0.27) Urine Color PALE YELLOW Urine Appearance HAZY Urine pH 5.0 (5.0-7.5) Ur Specific [place] 1.021 (1.002-1.030) Urine Protein NEGATIVE (NEGATIVE) Urine Ketones 2+ H (NEGATIVE) Urine Blood 1+ H (NEGATIVE) Urine Nitrate NEGATIVE (NEGATIVE) Urine Bilirubin NEGATIVE (NEGATIVE) Urine Urobilinogen NEGATIVE EU EU (0.2-1.0) Ur Leukocyte Esterase 1+ H (NEGATIVE) Urine RBC 3-5 /hpf H /hpf (0-3) Urine WBC 50-182 /hpf H /hpf (0-3) Ur Epithelial Cells TRACE /lpf /lpf (NONE-1+) Urine Bacteria TRACE /hpf H /hpf (NONE SEEN) Urine Mucus TRACE /lpf /lpf (NONE-1+) Urine Glucose 3+ H (NEGATIVE) 04/12/18 04/12/18 09:07 09:04 WBC 19.81 10^3/uL H 10^3/uL (3.80-9.50) RBC 4.82 10^6/uL 10^6/uL (4.18-5.33) Hgb 14.5 g/dL g/dL (12.6-16.3) POC Hgb 18.0 gm/dL H gm/dL (12.6-16.3) Hct 49.0 % H % (38.0-47.0) POC Hct 53 % H % (38-47) MCV 101.7 fL H fL (81.5-99.8) MCH 30.1 pg pg (27.9-34.1) MCHC 29.6 g/dL L g/dL (32.4-36.7) RDW 14.6 % % (11.5-15.2) Plt Count 412 10^3/uL H 10^3/uL (150-400) MPV 10.7 fL fL (8.7-11.7) Neut % (Auto) 76.3 % H % (39.3-74.2) Lymph % (Auto) 12.3 % L % (15.0-45.0) [place] % (Auto) 6.1 % % (4.5-13.0) Eos % (Auto) 0.5 % L % (0.6-7.6) Baso % (Auto) 1.0 % % (0.3-1.7) Nucleat RBC Rel Count 0.0 % % (0.0-0.2) Absolute Neuts (auto) 15.10 10^3/uL H 10^3/uL (1.70-6.50) Absolute Lymphs (auto) 2.44 10^3/uL 10^3/uL (1.00-3.00) Absolute Monos (auto) 1.21 10^3/uL H 10^3/uL (0.30-0.80) Absolute Eos (auto) 0.10 10^3/uL 10^3/uL (0.03-0.40) Absolute Basos (auto) 0.20 10^3/uL H 10^3/uL (0.02-0.10) Absolute Nucleated RBC 0.00 10^3/uL 10^3/uL (0-0.01) Immature Gran % 3.8 % H % (0.0-1.1) Immature Gran # 0.76 10^3/uL H 10^3/uL (0.00-0.10) Puncture Site Patient Temperature VBG pH VBG HCO3 VBG Total CO2 VBG O2 Saturation VBG Base Excess Mixed VBG pCO2 Mixed VBG pO2 POC Sodium 126 mEq/L L mEq/L (135-145) Sodium POC Potassium 6.2 mEq/L H mEq/L (3.3-5.0) Potassium POC Chloride 98 mEq/L mEq/L (97-110) Chloride Carbon Dioxide POC Total CO2 6 mEq/L L* mEq/L (22-31) Anion Gap POC BUN 27 mg/dL H mg/dL (7-23) BUN Creatinine POC Creatinine 1.2 mg/dL H mg/dL (0.6-1.0) Estimated GFR Glucose POC Glucose > 700 mg/dL H* mg/dL (70-100) Calcium Beta-Hydroxybutyrate Urine Color Urine Appearance Urine pH Ur Specific [place] Urine Protein Urine Ketones Urine Blood Urine Nitrate Urine Bilirubin Urine Urobilinogen Ur Leukocyte Esterase Urine RBC Urine WBC Ur Epithelial Cells Urine Bacteria Urine Mucus Urine Glucose Medications Given: Discontinued Medications Sodium Chloride (Ns) 1,000 mls @ 0 mls/hr IV EDNOW ONE; Wide Open PRN Reason: Protocol Stop: 04/12/18 08:35 Last Admin: 04/12/18 08:57 Dose: 1,000 mls Sodium Chloride (Ns) 1,000 mls @ 1,000 mls/hr IV EDNOW ONE PRN Reason: Protocol Stop: 04/12/18 10:04 Last Admin: 04/12/18 09:17 Dose: 1,000 mls Insulin Human Regular 100 unit / Miscellaneous Medication 1 ea/ Sodium Chloride 101 mls @ 0 mls/hr IV EDNOW ONE; Per Protocol PRN Reason: Protocol Stop: 04/12/18 09:06 Last Admin: 04/12/18 09:43 Dose: 101 mls Ceftriaxone Sodium/Dextrose (Rocephin 1 Gm (Premix)) 50 mls @ 100 mls/hr IV EDNOW ONE PRN Reason: Protocol Stop: 04/12/18 10:19 Last Admin: 04/12/18 10:17 Dose: 50 mls Sodium Chloride (Ns) 1,000 mls @ 3,000 mls/hr IV ONCE ONE Stop: 04/12/18 11:44 Last Admin: 04/12/18 12:05 Dose: 1,000 mls Point of Care Test Results: Chemistry 04/12/18 09:04 POC Sodium 126 mEq/L L mEq/L (135-145) POC Potassium 6.2 mEq/L H mEq/L (3.3-5.0) POC Chloride 98 mEq/L mEq/L (97-110) POC Total CO2 6 mEq/L L* mEq/L (22-31) POC BUN 27 mg/dL H mg/dL (7-23) POC Creatinine 1.2 mg/dL H mg/dL (0.6-1.0) POC Glucose > 700 mg/dL H* mg/dL (70-100) ISTAT H&H 04/12/18 09:04 POC Hgb 18.0 gm/dL H gm/dL (12.6-16.3) POC Hct 53 % H % (38-47) General Time Seen by Provider: 04/12/18 08:52 Initial Vital Signs: Initial Vital Signs Heart Rate 140 H 04/12/18 08:36 Respiratory Rate 56 H 04/12/18 08:36 O2 Sat (%) 98 04/12/18 08:36 O2 Delivery Mode Room Air Allergies/Adverse Reactions: maltodextrin Allergy (Verified 02/04/18 11:07) Diarrhea, cramps Sulfa (Sulfonamide Antibiotics) Allergy (Verified 04/12/18 08:36) itching all over Home Medications: Medication Instructions Recorded DULoxetine [Cymbalta 60 MG (*)] 60 mg PO BID 05/04/15 Amitriptyline HCl [Elavil 10 mg 10 mg PO HS 05/24/15 (*)] Melatonin [Melatonin 5 mg] 5 mg PO HS PRN 05/24/15 Multivitamins [Multivitamin (*)] 1 each PO DAILY 08/16/17 Apixaban [Eliquis] 5 mg PO BID 04/12/18 Atorvastatin Calcium [Lipitor 20 20 mg PO DAILY 04/12/18 mg (*)] Cholecalciferol Vit D3 [Vitamin D3 5,000 units PO DAILY 04/12/18 (*)] Fluconazole [Diflucan (*)] 150 mg PO DAILY 04/12/18 Insulin Glargine,Hum.rec.anlog 32 unit SQ HS 04/12/18 [Basaglar Kwikpen U-100] Insulin Lispro [Humalog Kwikpen 6 unit SQ TIDMEAL 04/12/18 U-100] Levothyroxine [Synthroid 125 mcg 125 mcg PO DAILY06 04/12/18 (*)] Metoprolol Tartrate [Lopressor 25 25 mg PO BID 04/12/18 mg (*)] Cephalexin [Keflex (*)] 500 mg PO TID #4 cap 04/15/18 Departure - Departure Disposition: [facility] Inpatient Acute Clinical Impression: Diabetic ketoacidosis Qualifiers: Diabetes mellitus type: type 1 Diabetes mellitus complication detail: without coma Qualified Code(s): E10.10 - Type 1 diabetes mellitus with ketoacidosis without coma Condition: Serious Report Scribed for: Yevgeniy Negron Report Scribed by: Nataliya Hidalgo Date of Report: 04/12/18 Time of Report: 09:13 Physician Review and Approval Statement: Portions of this note were transcribed by an ED scribe. I personally performed the history, physical exam, and medical decision making; and confirm the accuracy of the information in the transcribed note.
[2018-04-12 09:40] LABS: PLATELET COUNT 412 10^3/uL (150-400)
[2018-04-12] MEDS ORDERED: ONDANSETRON 4 MG/2 ML VIAL IVP PRN (11:25)
[2018-04-12] MEDS ORDERED: PROMETHAZINE HCL 25 MG/ML INJ IVP PRN (11:25)
[2018-04-12] MEDS ORDERED: ACETAMINOPHEN 325 MG TAB PO PRN (11:25)
[2018-04-12] MEDS ORDERED: ONDANSETRON DISINTEGRATING 4 MG TAB PO PRN (11:25)
--- NOTE | 2018-04-12 12:05 | GHP ---
[f rep st] HISTORY AND PHYSICAL DATE OF ADMISSION: 04/12/2018 Ms. Perez is a 73-year-old female with a history of type 1 diabetes and some admissions for DKA, who apparently forgot to take her long-acting insulin last evening. She was up all night urinating larg e volumes, according to her son. She presents to the emergency department today in DKA with a sugar greater than 1000, an undetectable bicarb, as well as markedly elevated ketones at 10.5. Urinalysis is consistent with a urinary tract infection. She endorses frequency and polyuria, but not clearly irritative voiding symptoms. There is concern on some of the staff of the presence of a cognitive impairment in she and her husban d. She had previously been on an insulin pump, but having presented with DKA while on an insulin pum p, it became apparent through investigation that she was really unable to use it safely. REVIEW OF SYSTEMS: Complete 10-point review of systems conducted and negative, except as noted in th e HPI. PAST MEDICAL HISTORY: 1. Type 1 diabetes with poor control and DKA. 2. Possible dementia. 3. Diastolic heart failure. 4. Atrial fibrillation, on anticoagulation. 5. Hyperlipidemia. 6. Hypertension. 7. History of pulmonary embolism. 8. Hypothyroidism. PAST SURGICAL HISTORY: 1. History of Lap-Band surgery. 2. Bilateral shoulder surgery. SOCIAL HISTORY: Retired nurse. . Former smoker. Occasional alcohol. FAMILY HISTORY: Parents . PHYSICAL EXAM: PRESENTING VITALS: Afebrile, blood pressure 171/106, pulse 140, breathing 56 times a minute, now 30, 98% on room air. GENERAL: Tachypneic, but no acute distress. HEENT: Sclerae anic teric. Oropharynx clear. Mucous membranes dry. NECK: Supple, without lymphadenopathy or JVD. RODRÍGUEZ GS: Clear to auscultation bilaterally. HEART: Is S1, S2. ABDOMEN: Soft, nontender, nondistended. LOWER EXTREMITIES: Without edema. Calves nontender. SKIN: Without rash. NEUROLOGIC: Nonfocal. LABS: White count 19.8 (she previously had a white count presenting with DKA), hematocrit 49, platel ets are 412,000. Venous blood gas shows a pH of 6.9 with a bicarb of 3. Sodium 133, potassium 5.5, chloride 107, bicarb 6, BUN 24, creatinine 1.1. She had an elevated anion gap. Urinalysis shows 50- 180 white cells, which is actually a new finding for her. I have discussed the case with Dr. Ravinder Negron. IMAGING: EKG interpreted by me shows sinus tachycardia with right bundle branch block. No ST or T-w ave changes. When compared with prior, the right bundle branch block is new. ASSESSMENT AND PLAN: A 73-year-old female with diabetic ketoacidosis. 1. Diabetic ketoacidosis. This is fairly significant diabetic ketoacidosis, given a pH less than 7, glucose greater than 1000, elevated ketones and tachypnea. She is currently on an insulin drip. We will follow an ABG q.3 and MET panels q.4. we will admit her to the ICU on an insulin drip on the d iabetic ketoacidosis protocol. 2. Hyponatremia. This is pseudohyponatremia secondary to hyperglycemia. We will follow with insuli n therapy. 3. Right bundle branch block pattern. I suspect this is rate related. We will follow. We will not check a troponin at this time. She does not have ischemic changes. 4. Leukocytosis and this is hemoconcentrated. We will follow. 5. Urinary tract infection. We will treat with ceftriaxone. She is afebrile. Should she has spike a fever, I think we will draw blood cultures. 6. Prophylaxis, therapeutically anticoagulated. 7. History pulmonary embolism. Continue her Eliquis. DISPOSITION: ICU. PLAN OF CARE: I wonder if the patient would not benefit from some home nursing visits for medication administration, notably, especially insulin. /[id number]/MODL
[2018-04-12] MEDS ORDERED: RN:ENTER POTASSIUM ICU PROTOCOL ON WORKLIST MISC ONE (13:30)
--- NOTE | 2018-04-12 13:44 | HOSPPROG ---
Hospitalist Progress Note Assessment/Plan: repeat labs show ongoing AGMA continue q3 abg, q4 met panel, volume resuscitation and insulin gtt 60 min crit care Objective: Vital Signs Temp Pulse Resp BP Pulse Ox 107 H 22 H 118/46 L 98 04/12/18 13:20 04/12/18 13:20 04/12/18 13:20 04/12/18 13:20 Laboratory Results 04/12/18 11:15 04/11/18 04/12/18 04/13/18 05:59 05:59 05:59 Intake Total 3150 Output Total 1000 Balance 2150 ICD10 Worksheet Patient Problems: Problems Problem Status Onset Diabetic ketoacidosis Acute Abdominal pain Acute Chronic Disease Mgmt/Transitional Care Acute Cough Acute Diarrhea Acute Hyperglycemia due to type 1 diabetes mellitus Acute Hyponatremia Acute
--- NOTE | 2018-04-12 13:55 | CPEKG ---
Test Reason : OPEN Blood Pressure : / mmHG Vent. Rate : 132 BPM Atrial Rate : 171 BPM P-R Int : 060 ms QRS Dur : 115 ms QT Int : 416 ms P-R-T Axes : 000 -68 052 degrees QTc Int : 617 ms Sinus tachycardia Right bundle branch block Inferior infarct, old Confirmed by Yevgeniy Negron ([id number]) on 04/12/2018 1:55:08 PM Referred By: Yevgeniy Negron Confirmed By:Yevgeniy Negron
[2018-04-12] MEDS: NS 1,000 ML IV SCH ×2 (14:00→18:37)
[2018-04-12] MEDS: INSULIN REGULAR HUMAN 100 UNIT in NS 100 ML IV SCH (18:36)
--- NOTE | 2018-04-12 19:19 | HOSPPROG ---
Hospitalist Progress Note Assessment/Plan: ICU Evening Note Pt seen and examined. Labs evaluated. Cognition appears improving. Acidosis is improving. Mg was added and this is within normal as well. Still appears dry on exam. Still on 250 ml per hour of NS. Hyperglycemia is still noted #DKA, recurrent #AGMA, improving #Hyperkalemia, resolved #Dehydration, severe, currently tolerating IVF well #Encephalopathy, likely acute on chronic. ?Dementia #RBBB Plan: ICU care IVF Insulin DKA protocol replace electrolytes prn cont serial labs CM to see, will need a plan to keep her out of the hospital D/W nursing at bedside total additional CCT is 25 minutes Subjective: following commands. Awake. no cp or sob. Objective: Vital Signs Temp Pulse Resp BP Pulse Ox 37.1 C 93 19 129/48 H 99 04/12/18 17:00 04/12/18 18:00 04/12/18 18:00 04/12/18 18:00 04/12/18 18:00 Laboratory Results 04/12/18 18:15 04/11/18 04/12/18 04/13/18 05:59 05:59 05:59 Intake Total 4205 Output Total 1100 Balance 3105 - Physical Exam Constitutional: chronically ill appearing Eyes: PERRL Ears, Nose, Mouth, Throat: dry mucous membranes Cardiovascular: regular rate and rhythym, No edema Respiratory: no respiratory distress, no rales or rhonchi, clear to auscultation Gastrointestinal: normoactive bowel sounds, soft, non-tender abdomen Skin: warm Neurologic: No AAOx3 Psychiatric: interacting appropriately Lymph, Heme, Immunologic: No petechiae ICD10 Worksheet Patient Problems: Problems Problem Status Onset Diabetic ketoacidosis Acute Abdominal pain Acute Chronic Disease Mgmt/Transitional Care Acute Cough Acute Diarrhea Acute Hyperglycemia due to type 1 diabetes mellitus Acute Hyponatremia Acute
[2018-04-12] MEDS ORDERED: PROTOCOL POTASSIUM 1 DOSE MISC PRN (19:20)
[2018-04-12] MEDS: POTASSIUM Cl (KCl) 100 ML IV SCH ×2 (20:29→21:44)
[2018-04-12] MEDS ORDERED: MELATONIN 3 MG TAB PO PRN (21:00)
--- NOTE | 2018-04-12 21:30 | PDMN ---
Medical Necessity Medical necessity: [facility] M130 Diabetes: 73 yo presents w/ DKA w/ pH<7, BG>1000, undetectable bicarb, ketones 10.5, and tachypnea. Meets med [facility] for M130 with the above data. Admit to status ICU for management. Hx DMI, poss dementia, dCHF, afib on anticoag, HLD, HTN, PE, hypothyroidism
[2018-04-12] MEDS: AMITRIPTYLINE HCL 10 MG TAB PO SCH (21:39)
[2018-04-12] MEDS: APIXABAN 5 MG TAB PO SCH (21:39)
[2018-04-12] MEDS: DULoxetine 60 MG CAP PO SCH (21:39)
[2018-04-12] MEDS: METOPROLOL TARTRATE 25 MG TAB PO SCH (21:39)
[2018-04-13] MEDS: D10W 1,000 ML IV SCH ×2 (01:49→02:42)
[2018-04-13] MEDS: INSULIN REGULAR HUMAN 100 UNIT in NS 100 ML IV SCH ×2 (02:41→07:47)
[2018-04-13] MEDS: NS 1,000 ML IV SCH ×2 (02:42→07:47)
[2018-04-13] MEDS: POTASSIUM Cl (KCl) 100 ML IV SCH ×6 (02:42→10:25)
[2018-04-13 04:12] LABS: PLATELET COUNT 272 10^3/uL (150-400)
[2018-04-13] MEDS: LEVOTHYROXINE 125 MCG TAB PO SCH (06:19)
[2018-04-13] MEDS: APIXABAN 5 MG TAB PO SCH ×2 (08:03→21:13)
[2018-04-13] MEDS: MULTIVITAMINS 1 EACH TAB PO SCH (08:03)
[2018-04-13] MEDS: METOPROLOL TARTRATE 25 MG TAB PO SCH ×2 (08:04→21:11)
[2018-04-13] MEDS: ATORVASTATIN CALCIUM 20 MG TAB PO SCH (08:04)
[2018-04-13] MEDS: CHOLECALCIFEROL VIT D3 1,000 UNITS TAB PO SCH (08:05)
[2018-04-13] MEDS: DULoxetine 60 MG CAP PO SCH ×2 (08:05→21:13)
[2018-04-13] MEDS ORDERED: ENOXAPARIN 40 MG/0.4 ML SYR SC SCH (09:00)
[2018-04-13] MEDS ORDERED: FLUCONAZOLE 150 MG TAB PO SCH (09:00)
--- NOTE | 2018-04-13 09:07 | HOSPPROG ---
Hospitalist Progress Note Assessment/Plan: 73 yo F w DKA, uti dka: gap closed restart long acting insulin acidosis: now NAGMA hyperchloremic from IVF stop IVF uti: day 2/ ceftriaxone repeat dka: in my brief conversations w and patient, i believe they both have some cognitive dysfunction repeated admits for dka belie a high risk situation CM to eval proph: LMWH dispo: to floor Subjective: gap closed. case discussed w dr child Objective: Vital Signs Temp Pulse Resp BP Pulse Ox 37.1 C 67 19 119/60 99 04/13/18 06:00 04/13/18 08:04 04/13/18 08:00 04/13/18 08:04 04/13/18 08:00 Laboratory Results 04/13/18 03:50 04/12/18 04/13/18 04/14/18 05:59 05:59 05:59 Intake Total 9027 Output Total 1752 Balance 7275 - Physical Exam Constitutional: no apparent distress, appears nourished, other (more alert) Eyes: PERRL, anicteric sclera Ears, Nose, Mouth, Throat: moist mucous membranes, hearing normal Cardiovascular: regular rate and rhythym, no murmur, rub, or gallop Respiratory: no respiratory distress, no rales or rhonchi Gastrointestinal: normoactive bowel sounds, soft, non-tender abdomen Genitourinary: no bladder fullness, No clark in urethra Skin: warm, normal color Musculoskeletal: No full muscle strength Neurologic: No AAOx3 ICD10 Worksheet Patient Problems: Problems Problem Status Onset Diabetic ketoacidosis Acute Abdominal pain Acute Chronic Disease Mgmt/Transitional Care Acute Cough Acute Diarrhea Acute Hyperglycemia due to type 1 diabetes mellitus Acute Hyponatremia Acute
[2018-04-13] MEDS: INSULIN GLARGINE 100 UNITS/ML UNIT SC SCH (09:35)
--- NOTE | 2018-04-13 14:10 | ASMTCASEMG ---
Living Arrangements What is your living Answers: With Spouse arrangement? Who do you live with? Type Of Residence What kind of residence do Answers: Apartment you live in? Discharge Plan Comments Coordination Status Comments Notes: Patient is a 73yo female with diabetic ketoacidosis who is being admitted for this as well as hyponatremia, leukocytosis, UTI, and hx of pulmonary embolism. OT/PT have been ordered. Dr. Morel thinks patient needs support for her diabetes at home so part of discharge plan may be RN services with Home Health Care. D/C plan TBD. CM will follow. Date Signed: 04/13/2018 02:09 PM Electronically Signed By:Joana Bowling LCSW
[2018-04-13] MEDS: AMITRIPTYLINE HCL 10 MG TAB PO SCH (21:13)
[2018-04-14] MEDS: LEVOTHYROXINE 125 MCG TAB PO SCH (06:09)
[2018-04-14] MEDS: MULTIVITAMINS 1 EACH TAB PO SCH (09:24)
[2018-04-14] MEDS: CHOLECALCIFEROL VIT D3 1,000 UNITS TAB PO SCH (09:24)
[2018-04-14] MEDS: METOPROLOL TARTRATE 25 MG TAB PO SCH ×2 (09:25→23:04)
[2018-04-14] MEDS: ATORVASTATIN CALCIUM 20 MG TAB PO SCH (09:25)
[2018-04-14] MEDS: APIXABAN 5 MG TAB PO SCH ×2 (09:25→23:05)
[2018-04-14] MEDS: DULoxetine 60 MG CAP PO SCH ×2 (09:25→23:05)
[2018-04-14] MEDS: INSULIN GLARGINE 100 UNITS/ML UNIT SC SCH (09:28)
--- NOTE | 2018-04-14 10:32 | ASMTLACE ---
LACE Length of stay for Answers: 2 days current admission Acuity / Level of Answers: Yes Care: Did the patient have an inpatient admission? Comorbidities - select Answers: Congestive heart failure all that apply Dementia Diabetes (uncontrolled or controlled) Other Notes: HTN; HLD # of Emergency department Answers: 3-4 visits in the last 6 months Score: 15 Date Signed: 04/14/2018 10:31 AM Electronically Signed By:TONIO Evans
--- NOTE | 2018-04-14 12:56 | ASMTDCNOTE ---
Case Management Discharge Discharge Order Complete? Answers: No Notes: Md notified CM of anticipated discharge Patient to Obtain Answers: via Family Medications Transportation Arranged Answers: Family/Friends Faxed Final Orders Answers: Yes Agency/Facility Transfer Answers: Yes Report Printed & Faxed to Receiving Agency Family Notified Answers: Yes Discharge Comments Notes: CM spoke with MD, Pt and pt's . Pt reports she is [facility] with [facility], CM submit orders. Pt is supportive of pt and able to care for her needs. Pt's provided CM contact information for pt's outpatient care team to submit updates, CM submit updates through [facility]. Pt's reports he will call and schedule follow-up appts. No other CM needs identified. Family to transport. Date Signed: 04/14/2018 12:55 PM Electronically Signed By:TONIO Evans
--- NOTE | 2018-04-14 14:07 | HOSPPROG ---
Hospitalist Progress Note Assessment/Plan: 73 yo F w DKA, uti dka: gap closed restart long acting insulin 04/14- takes insulin at night at home will give small dose tonight here nad transition to hs dosing at home acidosis: now NAGMA hyperchloremic from IVF stop IVF toxic metabolic encephalopathy uti: day 3 ceftriaxone repeat dka: in my brief conversations w and patient, i believe they both have some cognitive dysfunction repeated admits for dka belie a high risk situation CM to eval 04/14: they believe they are safe at home. while im not sure I agree, it is their right to make this decision less confused today home in AM w RN, home care proph: LMWH dispo: to floor Subjective: per OT yesterday, they think she is too confused for dc. patient and disagree Objective: Vital Signs Temp Pulse Resp BP Pulse Ox 36.6 C 78 16 136/79 H 96 04/14/18 07:22 04/14/18 12:26 04/14/18 12:26 04/14/18 12:26 04/14/18 12:26 Laboratory Results 04/13/18 03:50 04/14/18 05:00 04/13/18 04/14/18 04/15/18 05:59 05:59 05:59 Intake Total 9027 Output Total 1752 650 Balance 7275 -650 - Physical Exam Constitutional: no apparent distress, appears nourished Eyes: PERRL, anicteric sclera Ears, Nose, Mouth, Throat: moist mucous membranes, hearing normal Cardiovascular: regular rate and rhythym, no murmur, rub, or gallop Respiratory: no respiratory distress, no rales or rhonchi Gastrointestinal: normoactive bowel sounds, soft, non-tender abdomen Genitourinary: no bladder fullness, No clark in urethra Skin: warm, normal color Musculoskeletal: full muscle strength Neurologic: No AAOx3 ICD10 Worksheet Patient Problems: Problems Problem Status Onset Diabetic ketoacidosis Acute Abdominal pain Acute Chronic Disease Mgmt/Transitional Care Acute Cough Acute Diarrhea Acute Hyperglycemia due to type 1 diabetes mellitus Acute Hyponatremia Acute
[2018-04-14] MEDS ORDERED: INSULIN GLARGINE 100 UNITS/ML UNIT SC SCH (21:00)
[2018-04-14] MEDS: AMITRIPTYLINE HCL 10 MG TAB PO SCH (23:05)
[2018-04-15] MEDS: LEVOTHYROXINE 125 MCG TAB PO SCH (06:19)
--- NOTE | 2018-04-15 09:50 | HOSPPROG ---
Hospitalist Progress Note Assessment/Plan: 73 yo F w DKA, uti dka: gap closed restart long acting insulin 04/14- takes insulin at night at home will give small dose tonight here nad transition to hs dosing at home acidosis: now NAGMA hyperchloremic from IVF stop IVF toxic metabolic encephalopathy uti: day 06/02 ceftriaxone repeat dka: in my brief conversations w and patient, i believe they both have some cognitive dysfunction repeated admits for dka belie a high risk situation CM to eval 04/14: they believe they are safe at home. while im not sure I agree, it is their right to make this decision less confused today home in AM w RN, home group home today > 30 minutes on dc Subjective: daughter at bedside. lengthy discussion of risk/benefit of continued home living. they accept, acknowledge risks. anel actively involved in home care Objective: Vital Signs Temp Pulse Resp BP Pulse Ox 36.3 C 73 14 127/74 H 98 04/15/18 08:00 04/15/18 08:00 04/15/18 08:00 04/15/18 08:00 04/15/18 08:00 Laboratory Results 04/13/18 03:50 04/14/18 05:00 04/14/18 04/15/18 04/16/18 05:59 05:59 05:59 Intake Total 550 Output Total 650 Balance -650 550 - Physical Exam Constitutional: no apparent distress, appears nourished Eyes: PERRL, anicteric sclera Ears, Nose, Mouth, Throat: moist mucous membranes, hearing normal Cardiovascular: regular rate and rhythym, no murmur, rub, or gallop Respiratory: no respiratory distress, no rales or rhonchi Gastrointestinal: normoactive bowel sounds, soft, non-tender abdomen Genitourinary: No clark in urethra Skin: warm, normal color Musculoskeletal: full muscle strength Neurologic: AAOx3 ICD10 Worksheet Patient Problems: Problems Problem Status Onset Diabetic ketoacidosis Acute Abdominal pain Acute Chronic Disease Mgmt/Transitional Care Acute Cough Acute Diarrhea Acute Hyperglycemia due to type 1 diabetes mellitus Acute Hyponatremia Acute
--- NOTE | 2018-04-15 09:54 | PDIAF ---
- Diagnosis Diagnosis: DKA Code Status: Full Code - Medication Management Discharge Medications: electronically signed and located in the Home Medication List. - Orders Services needed: Home Care, Registered Nurse Home Care Face to Face: I certify that this patient was under my care and that I had the required [id number] encounter meeting the encounter requirements on the discharge day. My findings support the fact that the patient is homebound as defined in Home Care Face to Face Continued: CMS Chapter 7 Medicare Benefits Manual 30.1.1 , The condition of the patient is such that there exists a normal inability to leave home and consequently, leaving home would require a considerable and taxing effort. Isolation Type: Contact Isolation - Follow Up Care Current Providers and Referrals: Rita Israel MD [Primary Care Provider] - As per Instructions
--- NOTE | 2018-04-15 10:20 | ASMTCMCOM ---
CM Note CM Note Notes: Met with pt and dtr, dc orders sent to [facility]. Pt's dtr will transport her home, no other needs. Date Signed: 04/15/2018 10:19 AM Electronically Signed By:Cookie Sandhu RN
[2018-04-15] MEDS: METOPROLOL TARTRATE 25 MG TAB PO SCH (10:22)
[2018-04-15] MEDS: MULTIVITAMINS 1 EACH TAB PO SCH (10:22)
[2018-04-15] MEDS: APIXABAN 5 MG TAB PO SCH (10:22)
[2018-04-15] MEDS: DULoxetine 60 MG CAP PO SCH (10:22)
[2018-04-15] MEDS: ATORVASTATIN CALCIUM 20 MG TAB PO SCH (10:22)
[2018-04-15 10:27] VITALS: BP 105/71
[2018-04-15] MEDS: CHOLECALCIFEROL VIT D3 1,000 UNITS TAB PO SCH (12:48)
--- NOTE | 2018-04-15 21:25 | GDS ---
[f rep st] DISCHARGE SUMMARY DISCHARGE DIAGNOSES: 1. Diabetic ketoacidosis. 2. Probable urinary tract infection. 3. Type 1 diabetes with poor control. 4. Possible dementia. 5. Diastolic heart failure. 6. Atrial fibrillation, on anticoagulation. 7. Toxic metabolic encephalopathy. Please see Admission History and Physical by Dr. Jacobo Morel. The patient presented with an episo de of fairly severe DKA, blood sugar greater than 1000, pH less than 7. She had missed a dose of jostin g-acting insulin the night prior and was up urinating all night. Her urinalysis was positive for ___ . She did have leukocytosis while here, consistent with likely urinary tract infection. She received ceftriaxone for that with improvement. Urine culture had not been sent. The patient had some encephalopathy while here that improved. Occupational therapy felt that the pat ient would benefit from SNF. The patient and her family were adamantly opposed to this. I spent darek e time discussing the case with her daughter on the day of discharge, and it sounds like there was a fair amount of home care set up and with a lot of support in terms of enabling the patient to adminis ter her own medicines in a timely fashion. We will set her up with home care and RN. She already toro s RN visits. They accept the risks of an imperfect situation. I actually think this is probably the right choice for her. Discharge status is to home. New medications are 4 pills of Keflex to complete a 5-day course of ant ibiotics for this urinary tract infection. /[id number]/MODL
== END 2018-04-15 12:40 | disposition home or self-care (01) | DRG 637 ==
LOC: F2N 13:00 → F3E 04-13 11:22
PROVIDERS: ADMIT Internal Medicine; ATTEND Internal Medicine
DX: E10.10 Type 1 diabetes mellitus with ketoacidosis without coma (principal); N39.0 Urinary tract infection, site not specified; G92 Toxic encephalopathy; F03.90 Unspecified dementia, unspecified severity, without behavioral disturbance, psychotic disturbance, mood disturbance, and anxiety; I11.0 Hypertensive heart disease with heart failure; I50.30 Unspecified diastolic (congestive) heart failure; E87.1 Hypo-osmolality and hyponatremia; E78.5 Hyperlipidemia, unspecified; I48.91 Unspecified atrial fibrillation; Z79.4 Long term (current) use of insulin; Z86.711 Personal history of pulmonary embolism; Z98.84 Bariatric surgery status; Z87.891 Personal history of nicotine dependence; Z79.01 Long term (current) use of anticoagulants
CPT/HCPCS: 82435-PO; 82565-PO; 82947-PO; 84132-PO; 84295-PO; 84520-PO; 85014-ER; 92523-GN; 96365; 96366; 97116-GP; 97162-GP; 97166-GO; 97535-GO; J0696; J1815; J3480

== ENCOUNTER 2018-04-16 01:21 | Inpatient (IN) | payer OTHER ==
[2018-04-16] MEDS ORDERED: NS 1,000 ML IV ONE (01:36)
--- NOTE | 2018-04-16 01:46 | EDPHY ---
H & P Stated Complaint: asymptomatic high BG, last was 450. DC yesterday for DKA Time Seen by Provider: 04/16/18 01:46 HPI/ROS: HPI CHIEF COMPLAINT: High blood sugar. Recent admission for DKA. HISTORY OF PRESENT ILLNESS: This is a 73-year-old female presents to the emergency room at 2:00 a.m. For high blood sugar. They took her blood sugar and was around 500 at home. When I asked them there insulin regimen including her and her they really do not know. They report to me they do not know exactly the dose at night and able either doing sliding scale during the day. The patient herself has no idea what insulin regimen she is on. The has a hard explaining to me her insulin regimen. The patient arrives emergency room in no acute distress but they report that she has very high blood sugar they came in tonight because they are concerned that it may turn into a 1000 like it was last time. She denies any physical complaints denies chest pain shortness of breath, denies nausea vomiting, denies feeling dehydrated. She states she feels otherwise fine. reports her blood sugar was close to 500 prior to arrival. Past Medical History: Significant medical history for insulin-dependent diabetes poorly controlled, DKA, UTI, AFib, diastolic heart failure, dementia Past Surgical History: No recent surgery Social History: Lives locally denies drugs alcohol tobacco. Family History: Noncontributory ROS REVIEW OF SYSTEMS: 10 Systems were reviewed and negative with the exception of the elements mentioned in the history of present illness. Exam Constitutional appears well nontoxic no acute distress. Vital signs stable. triage nursing summary reviewed, vital signs reviewed, awake/alert. Eyes normal conjunctivae and sclera, EOMI, PERRLA. HENT normal inspection, atraumatic, moist mucus membranes, no epistaxis, neck supple/ no meningismus, no raccoon eyes. Respiratory clear to auscultation bilaterally, normal breath sounds, no respiratory distress, no wheezing. Cardiovascular rate normal, regular rhythm, no murmur, no edema, distal pulses normal. Gastrointestinal soft, non-tender, no rebound, no guarding, normal bowel sounds, no distension, no pulsatile mass. Genitourinary no CVA tenderness. Musculoskeletal no midline vertebral tenderness, full range of motion, no calf swelling, no tenderness of extremities, no meningismus, good pulses, neurovascularly intact. Skin pink, warm, & dry, no rash, skin atraumatic. Neurologic awake, alert and oriented x 3, AAOx3, moves all 4 extremities equally, motor intact, sensory intact, CN II-XII intact, normal cerebellar, normal vision, normal speech. Psychiatric normal mood/affect. Heme/Lymph/Immune no lymphadenopathy. Differential Diagnosis: Includes but is not limited to in a particular order DKA, hyperglycemia, dehydration, electrolyte disturbance Medical Decision Making: Plan for this patient IV establishment IV fluid bolus basic blood work electrolytes, check blood glucose. Re-evaluate. Re-evaluation: 0541: Re-evaluate the patient resting comfortably. She received IV fluids. She is in no acute distress. Blood sugars trended down. Had a long discussion with the patient as well as her at bedside Discussed possible observation admission today for hyperglycemia and active urinary tract infection. I had a very long discussion with the patient and is unclear what insulin regimen she is on. There seems to be some confusion. Bleed should benefit for further education. The and patient are agreeable for admission and glycemic control. agrees to admit. PAtient agrees to admit. Source: Patient - Personal History Current Tetanus/Diphtheria Vaccine: Yes Current Tetanus Diphtheria and Acellular Pertussis (TDAP): Yes Tetanus Vaccine Date: 2016 - Medical/Surgical History Hx Asthma: No Hx Chronic Respiratory Disease: No Hx Diabetes: Yes Hx Cardiac Disease: No Hx Renal Disease: No Hx Cirrhosis: No Hx Alcoholism: No Hx HIV/AIDS: No Hx Splenectomy or Spleen Trauma: No Other PMH: TYPE 1 DIABETES, HYPOTHYROID, 2005-BINDU. lap band. bilateral rotator coff, left knee replaced - Social History Smoking Status: Former smoker Constitutional: Initial Vital Signs Temperature (C) 36.9 C 04/16/18 01:28 Heart Rate 89 04/16/18 01:28 Respiratory Rate 18 04/16/18 01:28 Blood Pressure 154/93 H 04/16/18 01:28 O2 Sat (%) 97 04/16/18 01:28 O2 Delivery Mode Room Air Allergies/Adverse Reactions: maltodextrin Allergy (Verified 04/16/18 01:27) Diarrhea, cramps Sulfa (Sulfonamide Antibiotics) Allergy (Verified 04/16/18 01:27) itching all over Home Medications: Medication Instructions Recorded Amitriptyline HCl [Elavil 10 mg 10 mg PO HS 05/24/15 (*)] Multivitamins [Multivitamin (*)] 1 each PO DAILY 08/16/17 Apixaban [Eliquis] 5 mg PO BID 04/12/18 Atorvastatin Calcium [Lipitor 20 20 mg PO DAILY 04/12/18 mg (*)] Cholecalciferol Vit D3 [Vitamin D3 5,000 units PO DAILY 04/12/18 (*)] Insulin Glargine,Hum.rec.anlog 32 unit SQ HS 04/12/18 [Basaglar Kwikpen U-100] Insulin Lispro [Humalog Kwikpen 5 unit SQ TIDMEAL PRN 04/12/18 U-100] Cephalexin [Keflex (*)] 500 mg PO QID 04/16/18 Levothyroxine [Synthroid 150 mcg 150 mcg PO DAILY06 04/16/18 (*)] Melatonin [Melatonin 3 MG (*)] 3 mg PO HS PRN 04/16/18 Medical Decision Making - Data Points Laboratory Results: Laboratory Results 04/16/18 01:45 04/17/18 03:55 04/17/18 11:59 POC Glucose 206 mg/dL H mg/dL (70-100) Medications Given: Amitriptyline HCl (Elavil) 10 mg PO HS [facility] Stop: 10/13/18 20:59 Last Admin: 04/16/18 22:41 Dose: 10 mg Apixaban (Eliquis) 5 mg PO BID [facility] Stop: 10/13/18 20:59 Last Admin: 04/17/18 08:16 Dose: 5 mg Atorvastatin Calcium (Lipitor) 20 mg PO DAILY [facility] Stop: 10/14/18 08:59 Last Admin: 04/17/18 08:15 Dose: 20 mg Cholecalciferol (Vitamin D) 5,000 units PO DAILY [facility] Stop: 10/13/18 11:29 Last Admin: 04/17/18 08:15 Dose: 5,000 units Dextrose (Dextrose 50% Syringe) 25 gm IVP PRN PRN PRN Reason: Hypoglycemia Stop: 10/13/18 06:27 Last Admin: 04/17/18 08:32 Dose: 25 gm Insulin Human Lispro (Humalog Lispro) 0 unit SC TIDMEAL [facility] PRN Reason: Protocol Stop: 10/13/18 07:59 Last Admin: 04/17/18 18:39 Dose: 6 units Insulin Human Lispro (Humalog Lispro) 0 unit SC HS [facility] PRN Reason: Protocol Stop: 10/13/18 20:59 Last Admin: 04/16/18 22:54 Dose: 1 unit Levothyroxine Sodium (Synthroid) 150 mcg PO DAILY06 [facility] Stop: 10/14/18 05:59 Last Admin: 04/17/18 06:29 Dose: 150 mcg Multivitamins (Tab-A-Johnathon) 1 each PO DAILY [facility] Stop: 10/13/18 11:29 Last Admin: 04/17/18 08:16 Dose: 1 each Discontinued Medications Cephalexin HCl (Keflex) 500 mg PO QID [facility] PRN Reason: Protocol Stop: 04/16/18 21:01 Last Admin: 04/16/18 22:41 Dose: 500 mg Sodium Chloride (Ns) 1,000 mls @ 0 mls/hr IV EDNOW ONE; Wide Open PRN Reason: Protocol Stop: 04/16/18 01:37 Last Admin: 04/16/18 01:48 Dose: 1,000 mls Sodium Chloride (Ns) 1,000 mls @ 75 mls/hr IV CONT [facility] Stop: 04/16/18 20:29 Last Admin: 04/16/18 15:51 Dose: 1,000 mls Insulin Glargine (Lantus Syringe) 16 units SC HS [facility] Stop: 10/13/18 20:59 Last Admin: 04/16/18 22:42 Dose: 16 units Potassium Chloride (Klor-Con) 40 meq PO ONCE ONE PRN Reason: Protocol Stop: 04/17/18 07:52 Last Admin: 04/17/18 08:16 Dose: 40 meq Point of Care Test Results: Chemistry 04/17/18 04/17/18 04/17/18 11:59 08:55 08:17 POC Glucose 206 mg/dL H mg/dL 144 mg/dL H mg/dL 46 mg/dL L mg/dL (70-100) (70-100) (70-100) 04/16/18 04/16/18 04/16/18 21:28 20:59 18:09 POC Glucose 192 mg/dL H mg/dL 190 mg/dL H mg/dL 261 mg/dL H mg/dL (70-100) (70-100) (70-100) 04/16/18 04/16/18 04/16/18 16:45 13:32 11:17 POC Glucose 185 mg/dL H mg/dL 93 mg/dL mg/dL 101 mg/dL H mg/dL (70-100) (70-100) (70-100) 04/16/18 04/16/18 08:23 05:05 POC Glucose 116 mg/dL H mg/dL 227 mg/dL H mg/dL (70-100) (70-100) Departure - Departure Disposition: [facility] Inpatient Acute Clinical Impression: Hyperglycemia UTI (urinary tract infection) Qualifiers: Urinary tract infection type: acute cystitis Hematuria presence: with hematuria Qualified Code(s): N30.01 - Acute cystitis with hematuria Condition: Fair
[2018-04-16 01:57] LABS: PLATELET COUNT 276 10^3/uL (150-400)
[2018-04-16] MEDS ORDERED: ONDANSETRON 4 MG/2 ML VIAL IVP PRN (06:22)
[2018-04-16] MEDS ORDERED: ONDANSETRON DISINTEGRATING 4 MG TAB PO PRN (06:22)
[2018-04-16] MEDS ORDERED: ACETAMINOPHEN 325 MG TAB PO PRN (06:22)
[2018-04-16] MEDS ORDERED: D50W 25 GM/50 ML SYR IVP PRN (06:28)
[2018-04-16] MEDS: CEPHALEXIN 500 MG CAP PO SCH ×4 (08:36→22:41)
--- NOTE | 2018-04-16 08:51 | GHP ---
[f rep st] HISTORY AND PHYSICAL DATE OF ADMISSION: 04/16/2018 SOURCE: The patient is able to provide history. She is a fair historian due to poor memory. Edmund franklin has left for the evening. EMR was reviewed and case discussed with ED provider. The patient was fareed gonzalez recently discharged 04/15/2018. CHIEF COMPLAINT: High blood sugars. HISTORY OF PRESENT ILLNESS: This is a pleasant 73-year-old female with past medical history signific ant for type 1 diabetes, with a recent discharge for DKA, UTI, history of Dwight thyroiditis, paro xysmal atrial fibrillation, history of PE on Eliquis, diastolic CHF, and cognitive deficits, who pres ents to the emergency department today with complaints of elevated blood sugars. The patient was adm itted on 04/12/2018, discharged yesterday, 04/15/2018, for DKA. She presented with increased urinary frequency, was found to have a blood sugar of greater than 1000. The patient was appropriately lida thiago for UTI and DKA. She was discharged with 1 additional day of oral antibiotics. The patient repo rts that she monitors her blood sugars 5 times daily, and she also is very aware of her diet and carb ohydrate monitoring. She is not able to tell me her medication or insulin regimens or dosing. The p atient became increasingly concerned when her blood sugar was 500 at home, and she was concerned that it would escalate, as it did previously. She denies any dysuria, hematuria, fevers, chills, except until she arrived to her room. No nausea, vomiting or diarrhea. The patient otherwise feels well. The patient, at discharge, had recommendations for transition to a SNF, which she and the family annel gray refused. They advised discharging provider that they had more than adequate support and home h ealth supplementation. During the emergency department assessment, the ED provider was not able to g et a clear explanation from either the patient or her regarding her current insulin regimen o r additional medication regimen. The daughter was not able to be reached, as she has just gone out f or a conference in [place]. REVIEW OF SYSTEMS: Ten systems reviewed, negative, except as noted above. ALLERGIES: Sulfa, maltodextrin. HOME MEDICATIONS: Pharmacy reconciliation pending. Available per EMR: Multivitamin, melatonin, lev othyroxine, 6 units of lispro t.i.d. with meals, 32 units subcu glargine, Diflucan, Cymbalta, vitamin D3, Lipitor, Eliquis, amitriptyline. PAST MEDICAL HISTORY: Significant for type 1 diabetes, Dwight thyroiditis, history of pneumonia, UTI, cognitive deficits, paroxysmal atrial fibrillation, history of PE on Eliquis, diastolic CHF. PAST SURGICAL HISTORY: Lap band, bilateral rotator cuff, left total knee arthroplasty, cataract extr action and lens placement. FAMILY HISTORY: Parents are . SOCIAL HISTORY: The patient is a retired RN. , lives with her . Her daughter [facility]. She quit tobacco several years ago. Occasional alcohol. No illicit drugs. CODE STATUS: Full. PHYSICAL EXAMINATION: VITAL SIGNS: Upon arrival to the emergency department, blood pressure 154/93, heart rate 89, respiratory rate 18, O2 sat is 97% on room air, temperature 36.9. Current vitals rivka ilable, blood pressure is 142/94, heart rate 81, respiratory rate 14, O2 sat 94% on room air, tempera ture 37.0. GENERAL: No acute distress. Pleasant, obese female who is sitting up in bed. She is aw mack and alert. HEAD: Normocephalic atraumatic. EYES: Extraocular muscles grossly intact. Pupils equal, round, reactive to light bilaterally and symmetric. Lens reflex appreciated bilaterally. ENT : Mucous membranes appear moist. No oropharyngeal erythema or exudates. NECK: Supple. Trachea mi dline. CV: Regular rate and rhythm. No murmurs, rubs or gallops appreciated. RESPIRATORY: Unlabo red breathing. Lungs are clear to auscultation bilaterally. No wheezes, rales or rhonchi. ABDOMEN: Positive bowel sounds. Soft, nontender to palpation. No rebound, guarding or masses appreciated. : No suprapubic tenderness to palpation. No Wilder catheter in place. EXTREMITIES: No cyanosis, clubbing or edema. 2+ pedal pulses present and symmetric. NEURO: Grossly nonfocal. No facial claudio oping. Moves all extremities. Sits up independently. MUSCULOSKELETAL: See above. PSYCH: The pat ient with some memory deficits. She is not able to recall her home medication list. She cannot even remember what she ordered for breakfast just a few minutes before I arrived to the room. She is not agitated. She is otherwise pleasant and cooperative. LABORATORY STUDIES: 1. WBC 9.49, H and H 13.2 and 40.2, MCV of 91.2, platelet count 276. No bands. 2. Sodium is 132, potassium is 4.12, chloride 104, CO2 is 20, anion gap 8, BUN is 15, creatinine 0.7 , GFR greater than 60, glucose of 416, calcium is 8.7. Repeated point of care is 227. 3. UA: Specific gravity 1.029 with a pH of 5.0, 2+ blood, 2+ leuk esterase, WBCs 25-50, RBCs 10-15, bacteria trace, epithelial trace, and glucose is 3+. ASSESSMENT AND PLAN: A pleasant 73-year-old female with history of type 1 diabetes, hypothyroidism, a recent urinary tract infection and diabetic ketoacidosis hospitalization, paroxysmal atrial fibrill ation, history of pulmonary embolism on Eliquis, who presents to the emergency department today with concerns for rising blood sugars. 1. Type 1 diabetes, uncontrolled. The patient has nearly completed a 5-day course of antibiotics. She has not had any increased frequency, urination, dysuria or hematuria reported. Her UA does still appear to be slightly abnormal with elevated white count 25-50. Continue an additional day of Kefle x. I suspect that the patient with an insulin deficit, as she and her are not able to clearl y describe her insulin regimen. The daughter is currently out of town. Case management, dietary con sult to assist with any potential additional resources. We will monitor her blood sugars with potent ial discharge later today. 2. Urinary tract infection. Continue Keflex as noted above. 3. Memory deficits. We are trying to review the patient's speech therapy notes for cognitive evalua tion. 4. History of pulmonary embolism. Continue Eliquis. 5. Paroxysmal atrial fibrillation, rate currently controlled, and exam is regular. Awaiting updated medication list. She is not on any rate control, per available record. 6. History of diastolic congestive heart failure with chronically compensated. The patient does not appear fluid overloaded. Lungs are clear. 7. Hypothyroidism. Continue levothyroxine. 8. Hyponatremia, mildly decreased. The patient received intravenous fluids in the emergency departm ent. No additional intravenous fluids at this time. Encourage p.o. intake. 9. Fluid, electrolyte, nutrition: Saline lock intravenous line, as noted above. [place] [employer] diet is ordered. 10. Prophylaxis: Sequential compression devices, Eliquis. 11. Code status is Full. 12. Disposition. The patient admitted to observation status on the medical-surgical floor. Anticip ate less than a 2 midnight stay. /[id number]/MODL
[2018-04-16] MEDS: INSULIN LISPRO 100 UNIT/ML SC SCH ×4 (09:33→22:54)
--- NOTE | 2018-04-16 10:35 | ASMTCMCOM ---
CM Note CM Note Notes: Patient just discharged and returned to the ED within hours for elevated glucose levels. In reviewing ED reports the patient and her are unable to articulate current diabetic regime and medications. Family had refused prior admission to SNF and daughter is now out of town. CM to follow for needs. Likely in need of higher level of support. Plan: TBD Date Signed: 04/16/2018 10:34 AM Electronically Signed By:Kim Toney RN
[2018-04-16] MEDS ORDERED: MELATONIN 3 MG TAB PO PRN (11:21)
[2018-04-16] MEDS: CHOLECALCIFEROL VIT D3 1,000 UNITS TAB PO SCH (12:45)
[2018-04-16] MEDS: MULTIVITAMINS 1 EACH TAB PO SCH (12:46)
--- NOTE | 2018-04-16 14:46 | HOSPPROG ---
Hospitalist Progress Note Assessment/Plan: #Uncontrolled Type 1 DM: unclear if she understands home insulin dose -sugars have been low here. Has not received insulin here. -Half Glargine dose this partha (may have to hold), SSI -encourage PO #h/o PE: Eliquis #Compensated diastolic HF: monitor BP #Cognitive deficits: contributing to safety issues with medications at home #Goals: discussed at length that home is not a safe discharge given immediate bounce back to hosp. She is agreeable to SNF. Case management assisting # Time spent on direct care: 30 min bedside counseling on safe DC plan, medications and reviewing notes, labs Subjective: no N/V Objective: Vital Signs Temp Pulse Resp BP Pulse Ox 36.3 C 85 16 135/66 H 95 04/16/18 11:12 04/16/18 11:12 04/16/18 11:12 04/16/18 11:12 04/16/18 11:12 04/15/18 04/16/18 04/17/18 05:59 05:59 05:59 Intake Total 1000 Balance 1000 - Time Spent With Patient Time Spent with Patient: greater than 25 minutes Time Spent with Patient: Greater than 25 minutes spent on this patients care, greater than 50% of time spent counseling, educating, and coordinating care regarding the above mentioned plan. - Physical Exam Constitutional: no apparent distress Eyes: PERRL Ears, Nose, Mouth, Throat: moist mucous membranes Cardiovascular: regular rate and rhythym Respiratory: no respiratory distress Gastrointestinal: normoactive bowel sounds Genitourinary: no bladder fullness Skin: warm Musculoskeletal: full muscle strength ICD10 Worksheet Patient Problems: Problems Problem Status Onset Hyperglycemia Acute UTI (urinary tract infection) Acute Abdominal pain Acute Chronic Disease Mgmt/Transitional Care Acute Cough Acute Diabetic ketoacidosis Acute Diarrhea Acute Hyperglycemia due to type 1 diabetes mellitus Acute Hyponatremia Acute
[2018-04-16] MEDS ORDERED: NS 1,000 ML IV SCH (15:30)
[2018-04-16] MEDS ORDERED: INSULIN GLARGINE 100 UNITS/ML UNIT SC SCH ×2 (21:00)
[2018-04-16] MEDS: AMITRIPTYLINE HCL 10 MG TAB PO SCH (22:41)
[2018-04-16] MEDS: APIXABAN 5 MG TAB PO SCH (22:41)
[2018-04-17] MEDS: LEVOTHYROXINE 150 MCG TAB PO SCH (06:29)
[2018-04-17] MEDS ORDERED: PROTOCOL POTASSIUM 1 DOSE MISC PRN (07:46)
[2018-04-17] MEDS ORDERED: POTASSIUM CL 10 MEQ TAB PO ONE (07:51)
[2018-04-17] MEDS: ATORVASTATIN CALCIUM 20 MG TAB PO SCH (08:15)
[2018-04-17] MEDS: CHOLECALCIFEROL VIT D3 1,000 UNITS TAB PO SCH (08:15)
[2018-04-17] MEDS: MULTIVITAMINS 1 EACH TAB PO SCH (08:16)
[2018-04-17] MEDS: APIXABAN 5 MG TAB PO SCH ×2 (08:16→22:12)
[2018-04-17] MEDS: INSULIN LISPRO 100 UNIT/ML SC SCH ×5 (08:46→22:13)
--- NOTE | 2018-04-17 12:18 | HOSPPROG ---
Hospitalist Progress Note Assessment/Plan: #Uncontrolled Type 1 DM: now with lows this morning despite reduced-dose Glargine (UTI may be contributing) -SSI today and calculate needs. Have call out to Dr. Mosley #h/o PE: Eliquis #Compensated diastolic HF: monitor BP #Cognitive deficits: 02/26 on SLUMS 04/14 indicating dementia. Likely contributing to issues, failing at home. Poor insight to medications #Goals: discussed at length that home is not a safe discharge given immediate bounce back to hosp. -She is agreeable to SNF. Case management assisting #Disp: inpatient admission for serial labs, PT at bedside and questions answered Subjective: tremulous per RN with glucose 46 this morning Objective: Vital Signs Temp Pulse Resp BP Pulse Ox 37.1 C 81 16 129/80 H 95 04/17/18 11:40 04/17/18 11:40 04/17/18 11:40 04/17/18 11:40 04/17/18 11:40 Laboratory Results 04/17/18 03:55 04/16/18 04/17/18 04/18/18 05:59 05:59 05:59 Intake Total 1000 650 Balance 1000 650 - Time Spent With Patient Time Spent with Patient: greater than 35 minutes Time Spent with Patient: Greater than 35 minutes spent on this patients care, greater than 50% of time spent counseling, educating, and coordinating care regarding the above mentioned plan. - Physical Exam Constitutional: other (pale) Ears, Nose, Mouth, Throat: moist mucous membranes Cardiovascular: regular rate and rhythym Respiratory: no respiratory distress Gastrointestinal: normoactive bowel sounds Genitourinary: no bladder fullness Skin: warm Musculoskeletal: full muscle strength Neurologic: AAOx3, CN II-XII Intact Psychiatric: poor insight, poor judgement, poor memory ICD10 Worksheet Patient Problems: Problems Problem Status Onset Hyperglycemia Acute UTI (urinary tract infection) Acute Abdominal pain Acute Chronic Disease Mgmt/Transitional Care Acute Cough Acute Diabetic ketoacidosis Acute Diarrhea Acute Hyperglycemia due to type 1 diabetes mellitus Acute Hyponatremia Acute
--- NOTE | 2018-04-17 12:51 | ASMTCMCOM ---
CM Note CM Note Notes: Patient plan of care reviewed in rounds. Patient refused speech cog eval today slum score 15/30 on last admission. She is forgetful. [facility] Patient and live in [place]. CM to follow. Plan: To SNF Date Signed: 04/17/2018 12:50 PM Electronically Signed By:Kim Toney RN
--- NOTE | 2018-04-17 14:10 | PDMN ---
Medical Necessity Medical necessity: [facility] [place] [facility] M130 Diabetes: 73 yo w/ hyperglycemia BG 416, initially OBS for tx but pt now having issues w/ hypoglycemia, controlling BGs. Home is not safe to discharge given immediate bounce back to hospital in setting of pt' s cognitive deficits and inability of spouse to explain current insulin regimen re DM management. Hx DMI w/ recent d/c for DKA, UTI, Dwight, pAfib, PE, dCHF, cognitive deficits. Pt needs additional MN for serial labs, glucose management and PT order for eval and tx. Change to IP status 04/17/18@1215 per MD order
[2018-04-17] MEDS: AMITRIPTYLINE HCL 10 MG TAB PO SCH (22:12)
[2018-04-18] MEDS ORDERED: POTASSIUM CL 10 MEQ TAB PO ONE (00:48)
[2018-04-18] MEDS: LEVOTHYROXINE 150 MCG TAB PO SCH (05:45)
[2018-04-18] MEDS: CHOLECALCIFEROL VIT D3 1,000 UNITS TAB PO SCH (07:48)
[2018-04-18] MEDS: INSULIN LISPRO 100 UNIT/ML SC SCH ×4 (07:48→22:08)
[2018-04-18] MEDS: ATORVASTATIN CALCIUM 20 MG TAB PO SCH (07:48)
[2018-04-18] MEDS: APIXABAN 5 MG TAB PO SCH ×2 (07:49→21:44)
[2018-04-18] MEDS: MULTIVITAMINS 1 EACH TAB PO SCH (07:49)
[2018-04-18] MEDS: CEPHALEXIN 500 MG CAP PO SCH ×4 (10:02→10:13)
[2018-04-18] MEDS: INSULIN GLARGINE 100 UNITS/ML UNIT SC SCH (10:25)
--- NOTE | 2018-04-18 14:25 | ASMTCMCOM ---
CM Note CM Note Notes: Met with patient's Dexter this am to review dc plan of care. He seems to have some difficulty with word finding and memory issues.We reviewed the discharge plan of care and he is going to go to [facility]. I have provided him with my phone number so he can reach me to give his approval of the facility. She (the patient) has been accepted to [facility]. I have informed the hospitalist and the patient and her . CM available should other needs arise. Plan: Dc to [facility] when medically cleared. Date Signed: 04/18/2018 02:25 PM Electronically Signed By:Kim Toney RN
--- NOTE | 2018-04-18 17:38 | HOSPPROG ---
Hospitalist Progress Note Assessment/Plan: #Uncontrolled Type 1 DM: unclear if she understands home insulin dose, diet -spoke with her Regional Coordinator, Dr Mosley who states sugars erratic. Agrees to change glargine to AM dosing to watch for lows -restarted Glargine at 8 units today and monitor overnight to ensure no lows #Hypoglycemia: resolved. UTI may have contributed. Low AM cortisol; stim-test in morning #h/o PE: Eliquis #Compensated diastolic HF: monitor BP #Dementia: recent MOCA 02/26. Do not feel she has capacity to make safe medical decisions. Daughter is HARRY #Goals: discussed at length that home is not a safe discharge given immediate bounce back to hosp. -Agreeable to [facility] #Diet: diabetics #Disp: DC tomorrow if glucose levels stable at bedside, questions answered Subjective: no N/V Objective: Vital Signs Temp Pulse Resp BP Pulse Ox 36.9 C 89 18 147/88 H 90 L 04/18/18 16:10 04/18/18 16:10 04/18/18 16:10 04/18/18 16:10 04/18/18 16:10 Laboratory Results 04/18/18 04:40 04/17/18 04/18/18 04/19/18 05:59 05:59 05:59 Intake Total 1450 Balance 1450 - Time Spent With Patient Time Spent with Patient: greater than 35 minutes Time Spent with Patient: Greater than 35 minutes spent on this patients care, greater than 50% of time spent counseling, educating, and coordinating care regarding the above mentioned plan. - Physical Exam Constitutional: no apparent distress Eyes: PERRL Ears, Nose, Mouth, Throat: moist mucous membranes Cardiovascular: regular rate and rhythym Respiratory: no respiratory distress Gastrointestinal: normoactive bowel sounds Genitourinary: no bladder fullness Skin: warm Musculoskeletal: full muscle strength Neurologic: AAOx3, CN II-XII Intact Psychiatric: interacting appropriately ICD10 Worksheet Patient Problems: Problems Problem Status Onset Hyperglycemia Acute UTI (urinary tract infection) Acute Abdominal pain Acute Chronic Disease Mgmt/Transitional Care Acute Cough Acute Diabetic ketoacidosis Acute Diarrhea Acute Hyperglycemia due to type 1 diabetes mellitus Acute Hyponatremia Acute
[2018-04-18] MEDS: AMITRIPTYLINE HCL 10 MG TAB PO SCH (21:44)
[2018-04-19] MEDS: LEVOTHYROXINE 150 MCG TAB PO SCH (04:56)
[2018-04-19] MEDS ORDERED: COSYNTROPIN 0.25 MG/2 ML SYRINGE IVP ONE (06:00)
[2018-04-19] MEDS: INSULIN LISPRO 100 UNIT/ML SC SCH ×4 (09:05→21:32)
[2018-04-19] MEDS: APIXABAN 5 MG TAB PO SCH ×2 (09:06→21:32)
[2018-04-19] MEDS: INSULIN GLARGINE 100 UNITS/ML UNIT SC SCH (09:07)
[2018-04-19] MEDS: MULTIVITAMINS 1 EACH TAB PO SCH (09:07)
[2018-04-19] MEDS: ATORVASTATIN CALCIUM 20 MG TAB PO SCH (09:07)
[2018-04-19] MEDS: CHOLECALCIFEROL VIT D3 1,000 UNITS TAB PO SCH (09:07)
[2018-04-19] MEDS ORDERED: INSULIN GLARGINE 100 UNITS/ML UNIT SC SCH (14:09)
[2018-04-19] MEDS ORDERED: INSULIN GLARGINE 100 UNITS/ML UNIT SC ONE (14:15)
--- NOTE | 2018-04-19 14:15 | HOSPPROG ---
Hospitalist Progress Note Assessment/Plan: #Uncontrolled Type 1 DM: unclear if she understands home insulin dose, diet -Nurse d/ with her Waffle Machine Operator, Dr Mosley who recommends increasing Lantus to 15 units qam and adjusting ISS for lower threshold to initiate insulin -will monitor overnight #Hypoglycemia: resolved. UTI may have contributed. -Cortisol-Stim test ok -now with hyperglycemia #h/o PE: Eliquis #Compensated diastolic HF: monitor BP #Dementia: recent MOCA 02/26. Do not feel she has capacity to make safe medical decisions. Daughter is MDPOA #Goals: discussed at length that home is not a safe discharge given immediate bounce back to hosp. -Agreeable to [facility] #Diet: diabetics #Disp: Can hopefully d/c tomorrow to [facility] Subjective: now with hyperglycemia. no cp or sob Objective: Vital Signs Temp Pulse Resp BP Pulse Ox 36.6 C 87 16 129/86 H 95 04/19/18 08:16 04/19/18 08:16 04/19/18 08:16 04/19/18 08:16 04/19/18 08:16 Laboratory Results 04/19/18 04:48 04/18/18 04/19/18 04/20/18 05:59 05:59 05:59 Intake Total 1450 1400 Balance 1450 1400 - Physical Exam Constitutional: no apparent distress Eyes: PERRL, EOMI Ears, Nose, Mouth, Throat: moist mucous membranes, hearing normal Cardiovascular: regular rate and rhythym, No edema Respiratory: no respiratory distress, no rales or rhonchi, clear to auscultation Gastrointestinal: normoactive bowel sounds Skin: warm Neurologic: AAOx3 Psychiatric: interacting appropriately, not anxious, not encephalopathic Lymph, Heme, Immunologic: No petechiae ICD10 Worksheet Patient Problems: Problems Problem Status Onset Hyperglycemia Acute UTI (urinary tract infection) Acute Abdominal pain Acute Chronic Disease Mgmt/Transitional Care Acute Cough Acute Diabetic ketoacidosis Acute Diarrhea Acute Hyperglycemia due to type 1 diabetes mellitus Acute Hyponatremia Acute
[2018-04-19] MEDS: AMITRIPTYLINE HCL 10 MG TAB PO SCH (21:32)
[2018-04-20] MEDS: LEVOTHYROXINE 150 MCG TAB PO SCH (05:05)
[2018-04-20] MEDS: ATORVASTATIN CALCIUM 20 MG TAB PO SCH (08:43)
[2018-04-20] MEDS: MULTIVITAMINS 1 EACH TAB PO SCH (08:43)
[2018-04-20] MEDS: APIXABAN 5 MG TAB PO SCH (08:43)
[2018-04-20] MEDS: INSULIN LISPRO 100 UNIT/ML SC SCH (08:44)
[2018-04-20] MEDS: CHOLECALCIFEROL VIT D3 1,000 UNITS TAB PO SCH (08:51)
[2018-04-20] MEDS ORDERED: INSULIN GLARGINE 100 UNITS/ML UNIT SC ONE (12:00)
[2018-04-20] MEDS: INSULIN LISPRO 100 UNIT/ML CUSTOM SC SCH ×2 (12:09→16:21)
--- NOTE | 2018-04-20 14:32 | PDDCSUM ---
Discharge Summary Discharge Summary: 73 yo female admitted with uncontrolled diabetes and hyperglycemia. She was admitted but then had episodes of hypoglycemia. It is unclear if the pt had been compliant on her insulin regimen and compliance going forward may be an issue. She was set up to discharge to SNF, however, the pt and her were a bit resistant to this. They met with their passport support manager (Dr. Mosley) on the day of discharge and have come up with a regimen to titrate her insulin regimen via phone calls and frequent visits and they are no longer heading to SNF. She is on Lantus 25 units daily which she will restart again at night (was given during the day here). She is also supposed to start between 10-15 units of Lispro TID with meals per the sliding scale determined by their passport support manager. If the patient returns due to hyper/hypoglycemia and there is concern about compliance or adequate administration/execution of the insulin regimen, would start communication from the onset that the patient likely needs a SNF to ensure safety. DDx: #Uncontrolled Type 1 DM: #Hypoglycemia: resolved. UTI may have contributed. -Cortisol-Stim test ok #h/o PE: Eliquis #Compensated diastolic HF: monitor BP #Dementia: recent MOCA 02/26. Do not feel she has capacity to make safe medical decisions. Daughter is MDPOA -insulin regimen will be managed by her Exam: NAD AAOX3 RRR CTA B MEDS: SEE MED REC F/U: PER ABOVE TOTAL TIME SPENT ON DC IS 40 MIN. D/W PT, CM, AND CLIENT PROGRAM MANAGER
--- NOTE | 2018-04-20 14:32 | PDIAF ---
- Diagnosis Diagnosis: Diabetes, hypoglycemia - Medication Management Discharge Medications: electronically signed and located in the Home Medication List. - Orders Services needed: Home Care, Registered Nurse, Certified Education Program Specialist, Physical Therapy, Occupational Therapy Home Care Face to Face: I certify that this patient was under my care and that I had the required [id number] encounter meeting the encounter requirements on the discharge day. My findings support the fact that the patient is homebound as defined in Home Care Face to Face Continued: CMS Chapter 7 Medicare Benefits Manual 30.1.1 , The condition of the patient is such that there exists a normal inability to leave home and consequently, leaving home would require a considerable and taxing effort. Isolation Type: Contact Isolation Diet Recommendation: ADA 1800 consistent carb Diet Texture: Regular Texture Diet Additional Instructions: activity: as tolerated Please work closely with your Tape Editor to ensure adequate titration of your insulin regiment per your visit encounter today F/u with your Tape Editor in 2 weeks - Follow Up Care Current Providers and Referrals: Margarita Jimenez MD [Primary Care Provider] - As per Instructions
--- NOTE | 2018-04-20 15:32 | ASMTLACE ---
LACE Length of stay for Answers: 3 days current admission Acuity / Level of Answers: Yes Care: Did the patient have an inpatient admission? Comorbidities - select Answers: Diabetes (uncontrolled or all that apply controlled) Other Notes: Cognitive deficits # of Emergency department Answers: 3-4 visits in the last 6 months Score: 11 Date Signed: 04/20/2018 03:31 PM Electronically Signed By:Annette Toth RN
[2018-04-20 15:35] VITALS: BP 134/102
--- NOTE | 2018-04-20 15:38 | ASMTDCNOTE ---
Case Management Discharge Discharge Order Complete? Answers: Yes Patient to Obtain Answers: Independently Medications Transportation Arranged Answers: Family/Friends Family Notified Answers: Yes Discharge Comments Notes: Patient and have changed their mind; despite initially wanting to go to [facility], they have now decided that they can manage at home. They declined any home health services, as well. Date Signed: 04/20/2018 03:37 PM Electronically Signed By:Annette Toth RN
== END 2018-04-20 16:29 | disposition home health service (06) | DRG 638 ==
LOC: F1N 05:44 → OBSVTOIN 04-17 12:15
PROVIDERS: ADMIT Family Medicine; ATTEND Family Medicine
DX: E10.65 Type 1 diabetes mellitus with hyperglycemia (principal); N39.0 Urinary tract infection, site not specified; I50.30 Unspecified diastolic (congestive) heart failure; E87.1 Hypo-osmolality and hyponatremia; F03.90 Unspecified dementia, unspecified severity, without behavioral disturbance, psychotic disturbance, mood disturbance, and anxiety; I48.0 Paroxysmal atrial fibrillation; E03.9 Hypothyroidism, unspecified; Z79.01 Long term (current) use of anticoagulants; Z86.711 Personal history of pulmonary embolism
CPT/HCPCS: 92523-GN; 97162-GP; 97166-GO; 97535-GO; G0378; J0834; J1815

== ENCOUNTER 2018-06-05 21:44 | Inpatient (IN) | payer OTHER ==
--- NOTE | 2018-06-05 22:07 | EDPHY ---
H & P Time Seen by Provider: 06/05/18 21:51 HPI/ROS: Chief Complaint: Altered mental status, possible DKA HPI: 73-year-old type 1 diabetic who is presenting with high blood sugars for the last few days. These have resolved with supplemental insulin. Patient seemed to be mildly confused on Tuesday. Daughter staying with her all day. She was drinking increased fluids and increased urination on Tuesday. Blood sugars did respond to additional insulin. Today the patient slept most today. Decreased oral intake. Blood sugars continuing run high. She has not had any recent illness. No fevers or chills. No cough. No urinary urgency or frequency. Otherwise been in her usual state of health. ROS: 10 systems were reviewed and were negative except those elements noted in the HPI. PMH: Type 1 diabetes, PE on Eliquis, hyperlipidemia, question early dementia Social History: No smoking, no alcohol, no recreational drug use Family History: non-contributory Physical Exam: Gen: Awake, Alert, No Distress HEENT: Nose: no rhinorrhea Eyes: PERRLA, EOMI Mouth: Dry mucosa Neck: Supple, no JVD Chest: nontender, lungs clear to auscultation Heart: S1, S2 normal, no murmur Abd: Soft, non-tender, no guarding Back: no CVA tenderness, no midline tenderness Ext: no edema, non-tender Skin: no rash Neuro: CN II-XII intact, Sensation grossly intact, Strength 5/5 in bilateral upper and lower extremities - Personal History Tetanus Vaccine Date: 2016 - Medical/Surgical History Hx Asthma: No Hx Chronic Respiratory Disease: No Hx Diabetes: Yes Hx Cardiac Disease: No Hx Renal Disease: No Hx Cirrhosis: No Hx Alcoholism: No Hx HIV/AIDS: No Hx Splenectomy or Spleen Trauma: No Other PMH: TYPE 1 DIABETES, HYPOTHYROID, 2005-BINDU. lap band. bilateral rotator coff, left knee replaced - Social History Smoking Status: Former smoker Constitutional: Initial Vital Signs Temperature (C) 36.4 C 06/05/18 21:53 Heart Rate 104 H 06/05/18 21:53 Respiratory Rate 20 06/05/18 21:53 Blood Pressure 180/102 H 06/05/18 21:53 O2 Sat (%) 99 06/05/18 21:53 O2 Delivery Mode Room Air Allergies/Adverse Reactions: maltodextrin Allergy (Verified 06/05/18 21:53) Diarrhea, cramps Sulfa (Sulfonamide Antibiotics) Allergy (Verified 06/05/18 21:53) itching all over Home Medications: Medication Instructions Recorded Amitriptyline HCl [Elavil 10 mg 10 mg PO HS 05/24/15 (*)] Multivitamins [Multivitamin (*)] 1 each PO DAILY 08/16/17 Apixaban [Eliquis] 5 mg PO BID 04/12/18 Atorvastatin Calcium [Lipitor 20 20 mg PO DAILY 04/12/18 mg (*)] Cholecalciferol Vit D3 [Vitamin D3 5,000 units PO DAILY 04/12/18 (*)] Levothyroxine [Synthroid 150 mcg 150 mcg PO DAILY06 04/16/18 (*)] Melatonin [Melatonin 3 MG (*)] 3 mg PO HS PRN 04/16/18 Insulin Glargine [Lantus Syringe] 25 units SC DAILY unit 04/20/18 Insulin Lispro [HumaLOG LISPRO] 10 - 15 unit SC TIDMEAL unit 04/20/18 Medical Decision Making - Diagnostics Imaging Results: Imaging Impressions Chest X-Ray 06/05/18 22:09 Impression: Left basilar atelectasis versus early pneumonia. ED Course/Re-evaluation: Patient is in DKA. She has been started on the DKA protocol. I have discussed with Dr. Burgess, hospitalist. He will admit to the ICU for further care. Chest x-ray is suspicious for possible early infiltrate. Currently awaiting her urinalysis results for possible infectious source. Her potassium is being replaced. Will also start her on D10 given her low blood sugar with her DKA she will certainly need supplementation. - Data Points Laboratory Results: Laboratory Results 06/05/18 22:29 06/05/18 22:29 06/05/18 06/05/18 06/05/18 22:45 22:29 22:29 WBC 17.62 10^3/uL H 10^3/uL (3.80-9.50) RBC 5.30 10^6/uL 10^6/uL (4.18-5.33) Hgb 15.4 g/dL g/dL (12.6-16.3) POC Hgb Hct 45.2 % % (38.0-47.0) POC Hct MCV 85.3 fL fL (81.5-99.8) MCH 29.1 pg pg (27.9-34.1) MCHC 34.1 g/dL g/dL (32.4-36.7) RDW 13.6 % % (11.5-15.2) Plt Count 423 10^3/uL H 10^3/uL (150-400) MPV 9.6 fL fL (8.7-11.7) Neut % (Auto) Pending Lymph % (Auto) Pending Cuming % (Auto) Pending Eos % (Auto) Pending Baso % (Auto) Pending Nucleat RBC Rel Count Pending Absolute Neuts (auto) Pending Absolute Lymphs (auto) Pending Absolute Monos (auto) Pending Absolute Eos (auto) Pending Absolute Basos (auto) Pending Absolute Nucleated RBC Pending Immature Gran % Pending Immature Gran # Pending Platelet Estimate Pending Puncture Site Patient Temperature VBG pH VBG HCO3 VBG Total CO2 VBG O2 Saturation VBG Base Excess Mixed VBG pCO2 Mixed VBG pO2 POC Sodium Sodium 126 mEq/L L mEq/L (135-145) POC Potassium Potassium 4.9 mEq/L mEq/L (3.5-5.2) POC Chloride Chloride 95 mEq/L L mEq/L (97-110) Carbon Dioxide 11 mEq/l L mEq/l (22-31) POC Total CO2 Anion Gap 20 mEq/L H mEq/L (6-14) POC BUN BUN 44 mg/dL H mg/dL (7-23) Creatinine 1.3 mg/dL H mg/dL (0.6-1.0) POC Creatinine Estimated GFR 40 Glucose 191 mg/dL H mg/dL (70-100) POC Glucose Calcium 10.1 mg/dL mg/dL (8.5-10.4) Phosphorus 3.4 mg/dL mg/dL (2.5-4.5) Magnesium 2.4 mg/dL H mg/dL (1.6-2.3) Total Bilirubin 1.1 mg/dL mg/dL (0.1-1.4) Conjugated Bilirubin 0.6 mg/dL H mg/dL (0.0-0.5) Unconjugated Bilirubin 0.5 mg/dL mg/dL (0.0-1.1) AST 28 IU/L IU/L (14-46) ALT 32 IU/L IU/L (9-52) Alkaline Phosphatase 147 IU/L H IU/L (38-126) POC Troponin I 0.00 ng/mL ng/mL (0.00-0.08) Total Protein 7.7 g/dL g/dL (6.3-8.2) Albumin 4.9 g/dL g/dL (3.5-5.0) Beta-Hydroxybutyrate Pending 06/05/18 06/05/18 06/05/18 22:22 22:16 21:58 WBC RBC Hgb POC Hgb 17.3 gm/dL H gm/dL (12.6-16.3) Hct POC Hct 51 % H % (38-47) MCV MCH MCHC RDW Plt Count MPV Neut % (Auto) Lymph % (Auto) Cuming % (Auto) Eos % (Auto) Baso % (Auto) Nucleat RBC Rel Count Absolute Neuts (auto) Absolute Lymphs (auto) Absolute Monos (auto) Absolute Eos (auto) Absolute Basos (auto) Absolute Nucleated RBC Immature Gran % Immature Gran # Platelet Estimate Puncture Site VENOUS Patient Temperature 37.0 DEGREES DEGREES VBG pH 7.25 L (7.31-7.42) VBG HCO3 10 mEQ/L L mEQ/L (22-26) VBG Total CO2 11 mEq/L L mEq/L (21-27) VBG O2 Saturation 99 % H % (65-75) VBG Base Excess -15.5 mEq/L L mEq/L (-2.5-2.5) Mixed VBG pCO2 24 mmHg L mmHg (40-44) Mixed VBG pO2 161 mmHG H mmHG (35-40) POC Sodium 129 mEq/L L mEq/L (135-145) Sodium POC Potassium 4.5 mEq/L mEq/L (3.3-5.0) Potassium POC Chloride 101 mEq/L mEq/L (97-110) Chloride Carbon Dioxide POC Total CO2 11 mEq/L L mEq/L (22-31) Anion Gap POC BUN 45 mg/dL H mg/dL (7-23) BUN Creatinine POC Creatinine 1.2 mg/dL H mg/dL (0.6-1.0) Estimated GFR Glucose POC Glucose 217 mg/dL H mg/dL 190 mg/dL H mg/dL (70-100) (70-100) Calcium Phosphorus Magnesium Total Bilirubin Conjugated Bilirubin Unconjugated Bilirubin AST ALT Alkaline Phosphatase POC Troponin I Total Protein Albumin Beta-Hydroxybutyrate Medications Given: Sodium Chloride (Ns) 1,000 mls @ 1,000 mls/hr IV EDNOW ONE PRN Reason: Protocol Stop: 06/05/18 23:23 Last Admin: 06/05/18 22:46 Dose: 1,000 mls Potassium Chloride (Potassium Cl 10 Meq (Premix)) 100 mls @ 200 mls/hr IV Q30M DELISA Stop: 06/06/18 00:29 Last Admin: 06/05/18 23:18 Dose: 100 mls Discontinued Medications Dextrose (D10w) 1,000 mls @ 0 mls/hr IV CONT ONE; Per Protocol PRN Reason: Protocol Stop: 06/05/18 22:25 Last Admin: 06/05/18 22:47 Dose: 1,000 mls Insulin Human Regular 100 unit / Miscellaneous Medication 1 ea/ Sodium Chloride 101 mls @ 0 mls/hr IV EDNOW ONE; Per Protocol PRN Reason: Protocol Stop: 06/05/18 22:25 Last Admin: 06/05/18 23:14 Dose: 101 mls Point of Care Test Results: Chemistry 06/05/18 06/05/18 06/05/18 22:45 22:22 21:58 POC Sodium 129 mEq/L L mEq/L (135-145) POC Potassium 4.5 mEq/L mEq/L (3.3-5.0) POC Chloride 101 mEq/L mEq/L (97-110) POC Total CO2 11 mEq/L L mEq/L (22-31) POC BUN 45 mg/dL H mg/dL (7-23) POC Creatinine 1.2 mg/dL H mg/dL (0.6-1.0) POC Glucose 217 mg/dL H mg/dL 190 mg/dL H mg/dL (70-100) (70-100) POC Troponin I 0.00 ng/mL ng/mL (0.00-0.08) ISTAT H&H 06/05/18 22:22 POC Hgb 17.3 gm/dL H gm/dL (12.6-16.3) POC Hct 51 % H % (38-47) Departure - Departure Disposition: [facility] Inpatient Acute Clinical Impression: Diabetic ketoacidosis Condition: Serious Referrals: Margarita Jimenez MD [Primary Care Provider] - As per Instructions
[2018-06-05] MEDS ORDERED: INSULIN REGULAR HUMAN 100 UNIT, COSIGN. REQUIRED 1 EA in NS 100 ML IV ONE (22:24)
[2018-06-05] MEDS ORDERED: D10W 1,000 ML IV ONE (22:24)
[2018-06-05] MEDS ORDERED: D50W 25 GM/50 ML SYR IVP PRN (22:24)
[2018-06-05] MEDS ORDERED: NS 1,000 ML IV ONE ×2 (22:24→23:25)
[2018-06-05 22:39] LABS: PLATELET COUNT 423 10^3/uL (150-400)
[2018-06-05] MEDS: POTASSIUM Cl (KCl) 100 ML IV SCH (23:18)
[2018-06-05] MEDS ORDERED: ACETAMINOPHEN 325 MG TAB PO PRN (23:20)
[2018-06-05] MEDS ORDERED: ONDANSETRON DISINTEGRATING 4 MG TAB PO PRN (23:20)
[2018-06-05] MEDS ORDERED: ONDANSETRON 4 MG/2 ML VIAL IVP PRN (23:20)
--- NOTE | 2018-06-06 00:12 | PDGENHP ---
History and Physical - Chief Complaint Confusion, DREW, DKA - History of Present Illness 73 yo F w/ hx of IDDM, PE, ?dementia, hx PE, and dCHF presents with confusion. The history is obtained mostly from her daughter, who is the MDPOA. The patient is alert and interactive but A&Ox1 with very poor memory at the moment. The patient herself is unable to provide any meaningful history. Per her daughter, the patient began developing high blood glucose a few days ago. They treated this as best as they could with insulin. Yesterday she developed symptoms that are usually concerning for impending DKA: heavy breathing, polyuria, polydipsia , and dry mouth. Today the patient became confused so she was brought in to the ED for evaluation. The patient and her daughter deny any signs or symptoms of infection such as fever, chills, cough, SOB, dysuria, and diarrhea. Evaluation in the ED is suggestive of DKA as well as hyponatremia. She does have a leukocytosis but is afebrile. She has not urinated yet so UA unavailable. She was admitted here in March with a similar presentation. Insulin management has been challenging for this family over the last few months. Per my discussion with her daughter, a steady decline in her mother's short term memory over the last year has complicated her medical management. The daughter makes her insulin instructions very clear but it is still left up to the patient and her to administer the insulin. I do not feel confident that this is occurring as prescribed, but this is difficult to confirm. They do not have any home health services at the moment. Her prescribed regimen is insulin glargine 10 u qAM, 15 u qPM, and insulin aspart 10 u qAC. I discussed this case with Dr. Doe; records reviewed and summarized above. History Information - Allergies/Home Medication List Allergies/Adverse Reactions: maltodextrin Allergy (Verified 06/05/18 21:53) Diarrhea, cramps Sulfa (Sulfonamide Antibiotics) Allergy (Verified 06/05/18 21:53) itching all over Home Medications: Amitriptyline HCl [Elavil 10 mg (*)] 10 mg PO HS 05/24/15 [Last Taken 04/15/18] Multivitamins [Multivitamin (*)] 1 each PO DAILY 08/16/17 [Last Taken 04/15/18] Apixaban [Eliquis] 5 mg PO BID 04/12/18 [Last Taken 04/15/18] Atorvastatin Calcium [Lipitor 20 mg (*)] 20 mg PO DAILY 04/12/18 [Last Taken ] Cholecalciferol Vit D3 [Vitamin D3 (*)] 5,000 units PO DAILY 04/12/18 [Last Taken Unknown] Levothyroxine [Synthroid 150 mcg (*)] 150 mcg PO DAILY06 04/16/18 [Last Taken ] Melatonin [Melatonin 3 MG (*)] 3 mg PO HS PRN 04/16/18 [Last Taken 04/15/18] I have personally reviewed and updated: family history, medical history - Past Medical History atrial fibrillation, CHF (diastolic), diabetes type 1, hypertension, hyperlipidemia, pulmonary embolism Additional medical history: hypothyroid. morbid obestiy - Surgical History Additional surgical history: lap band surgery. biateral shoulder surgery - Family History Additional family history: Daughter at bedside healthy. Parents - Social History Smoking Status: Former smoker Additional social history: Review of Systems Review of Systems: ROS: 10pt was reviewed & negative except for what was stated in HPI & below Physical Exam Physical Exam: Temp Pulse Resp BP Pulse Ox 36.6 C 97 20 175/99 H 99 06/05/18 23:49 06/05/18 23:49 06/05/18 23:49 06/05/18 23:49 06/05/18 23:49 Constitutional: no apparent distress, appears nourished Eyes: PERRL, EOMI Ears, Nose, Mouth, Throat: moist mucous membranes, no oral mucosal ulcers Cardiovascular: regular rate and rhythym, no murmur, rub, or gallop Respiratory: no respiratory distress, clear to auscultation Gastrointestinal: normoactive bowel sounds, soft, non-tender abdomen Skin: warm, normal color Musculoskeletal: full muscle strength, no muscle tenderness Neurologic: CN II-XII Intact, other (A&Ox1) Psychiatric: encephalopathic, poor insight, poor memory Lab Data & Imaging Review 06/05/18 22:29 06/05/18 22:29 WBC 17.62 10^3/uL (3.80-9.50) H 06/05/18 22:29 RBC 5.30 10^6/uL (4.18-5.33) 06/05/18 22:29 Hgb 15.4 g/dL (12.6-16.3) 06/05/18 22:29 POC Hgb 17.3 gm/dL (12.6-16.3) H 06/05/18 22:22 Hct 45.2 % (38.0-47.0) 06/05/18 22:29 POC Hct 51 % (38-47) H 06/05/18 22:22 MCV 85.3 fL (81.5-99.8) 06/05/18 22:29 MCH 29.1 pg (27.9-34.1) 06/05/18 22: MCHC 34.1 g/dL (32.4-36.7) 06/05/18 22: RDW 13.6 % (11.5-15.2) 06/05/18 22:29 Plt Count 423 10^3/uL (150-400) H 06/05/18 22:29 MPV 9.6 fL (8.7-11.7) 06/05/18 22:29 Neut % (Auto) Not Reported 06/05/18 22:29 Lymph % (Auto) Not Reported 06/05/18 22:29 Gregory % (Auto) Not Reported 06/05/18 22:29 Eos % (Auto) Not Reported 06/05/18 22:29 Baso % (Auto) Not Reported 06/05/18 22:29 Nucleat RBC Rel Count Not Reported 06/05/18 22:29 Absolute Neuts (auto) Not Reported 06/05/18 22:29 Absolute Lymphs (auto) Not Reported 06/05/18 22:29 Absolute Monos (auto) Not Reported 06/05/18 22:29 Absolute Eos (auto) Not Reported 06/05/18 22:29 Absolute Basos (auto) Not Reported 06/05/18 22:29 Absolute Nucleated RBC Not Reported 06/05/18 22:29 Immature Gran % Not Reported 06/05/18 22:29 Seg Neutrophils % 79.2 % 06/05/18 22:29 Band Neutrophils % 0.0 % 06/05/18 22:29 Lymphocytes % 15.8 % 06/05/18 22:29 Monocytes % 5.0 % 06/05/18 22:29 Eosinophils % 0.0 % 06/05/18 22:29 Basophils % 0.0 % 06/05/18 22:29 Metamyelocytes % 0.0 % 06/05/18 22:29 Myelocytes % 0.0 % 06/05/18 22: Promyelocytes % 0.0 % 06/05/18 22:29 Blast Cells % 0.0 % 06/05/18 22:29 Immature Gran # Not Reported 06/05/18 22:29 Absolute Seg Neuts 13.96 10^3/uL (1.70-6.50) H 06/05/18 22:29 Absolute Band Neuts 0.00 10^3/uL (0.00-0.70) 06/05/18 22:29 Absolute Lymphocytes 2.78 10^3/uL (1.00-3.00) 06/05/18 22:29 Absolute Monocytes 0.88 10^3/uL (0.30-0.80) H 06/05/18 22:29 Absolute Eosinophils 0.00 10^3/uL (0.03-0.40) L 06/05/18 22:29 Absolute Basophils 0.00 10^3/uL (0.02-0.10) L 06/05/18 22:29 Absolute Metamyelocyte 0.00 10^3/mL (0.00-0.00) 06/05/18 22:29 Absolute Myelocytes 0.00 10^3/mL (0.00-0.00) 06/05/18 22:29 Absolute Promyelocytes 0.00 10^3/uL (0.00-0.00) 06/05/18 22:29 Absolute Plasma Cells 0.00 10^3/uL (0.00-0.00) 06/05/18 22:29 Nucleated RBCs 0 /100 WBC (0-0) 06/05/18 22:29 Absolute Blast Cells 0.00 10^3/uL (0.00-0.00) 06/05/18 22:29 Plasma Cells % 0.0 % 06/05/18 22:29 Platelet Estimate ADEQUATE (ADEQ) 06/05/18 22:29 Echinocytes 1+ H 06/05/18 22:29 Puncture Site VENOUS 06/05/18 22:16 Patient Temperature 37.0 DEGREES 06/05/18 22:16 VBG pH 7.25 (7.31-7.42) L 06/05/18 22:16 VBG HCO3 10 mEQ/L (22-26) L 06/05/18 22:16 VBG Total CO2 11 mEq/L (21-27) L 06/05/18 22:16 VBG O2 Saturation 99 % (65-75) H 06/05/18 22:16 VBG Base Excess -15.5 mEq/L (-2.5-2.5) L 06/05/18 22:16 Mixed VBG pCO2 24 mmHg (40-44) L 06/05/18 22:16 Mixed VBG pO2 161 mmHG (35-40) H 06/05/18 22:16 POC Sodium 129 mEq/L (135-145) L 06/05/18 22:22 Sodium 126 mEq/L (135-145) L 06/05/18 22:29 POC Potassium 4.5 mEq/L (3.3-5.0) 06/05/18 22:22 Potassium 4.9 mEq/L (3.5-5.2) 06/05/18 22:29 POC Chloride 101 mEq/L (97-110) 06/05/18 22:22 Chloride 95 mEq/L (97-110) L 06/05/18 22:29 Carbon Dioxide 11 mEq/l (22-31) L 06/05/18 22:29 POC Total CO2 11 mEq/L (22-31) L 06/05/18 22:22 Anion Gap 20 mEq/L (6-14) H 06/05/18 22:29 POC BUN 45 mg/dL (7-23) H 06/05/18 22:22 BUN 44 mg/dL (7-23) H 06/05/18 22:29 Creatinine 1.3 mg/dL (0.6-1.0) H 06/05/18 22:29 POC Creatinine 1.2 mg/dL (0.6-1.0) H 06/05/18 22:22 Estimated GFR 40 06/05/18 22:29 Glucose 191 mg/dL (70-100) H 06/05/18 22:29 POC Glucose 217 mg/dL (70-100) H 06/05/18 22:22 Serum Osmolality 296 mosmo/kg (280-297) 06/05/18 22:29 Calcium 10.1 mg/dL (8.5-10.4) 06/05/18 22:29 Phosphorus 3.4 mg/dL (2.5-4.5) 06/05/18 22:29 Magnesium 2.4 mg/dL (1.6-2.3) H 06/05/18 22:29 Total Bilirubin 1.1 mg/dL (0.1-1.4) 06/05/18 22:29 Conjugated Bilirubin 0.6 mg/dL (0.0-0.5) H 06/05/18 22:29 Unconjugated Bilirubin 0.5 mg/dL (0.0-1.1) 06/05/18 22:29 AST 28 IU/L (14-46) 06/05/18 22:29 ALT 32 IU/L (9-52) 06/05/18 22:29 Alkaline Phosphatase 147 IU/L (38-126) H 06/05/18 22:29 POC Troponin I 0.00 ng/mL (0.00-0.08) 06/05/18 22:45 Total Protein 7.7 g/dL (6.3-8.2) 06/05/18 22:29 Albumin 4.9 g/dL (3.5-5.0) 06/05/18 22:29 Beta-Hydroxybutyrate 3.94 mmol/L (0.02-0.27) H 06/05/18 22:29 Imaging Review: Imaging Impressions Chest X-Ray 06/05/18 22:09 Impression: Left basilar atelectasis versus early pneumonia. Visualized and Interpreted EKG results: Yes EKG Interpretation: Positive for: other (Sinus tach) Assessment & Plan Assessment: 73 yo F w/ hx of IDDM, PE, AF, dCHF, and suspected dementia presents with encephalopathy, DKA, DREW, and hyponatremia. Plan: 1. IDDM c/b acute DKA - Patient presents with confusion, HCO3 of 11, AG of 20, and elevated serum ketones. Etiology for this is unclear, but I have a moderate suspicion that patient and are not correctly administering prescribed insulin. This is her 5th admission for similar issues over the last year. She denies infectious symptoms but UA is not yet obtained. CXR demonstrates LLL atelectasis v. infiltrate but she has no respiratory symptoms and is stable on room air. - Admit to ICU w/ DKA protocol - CM consult placed to consider home health services - Await UA results and treat if indicated 2. Hyponatremia - Likely related to dehydration noting several days of polyuria and polydipsia. - Monitor BMP while on DKA protocol - Will check Osms, Samantha 3. DREW - Serum creatinine 1.3 on admission increased from a normal baseline. I suspect pre-renal azotemia noting above. - Repeat BMP after IVF 4. Acute encephalopathy - Patient A&Ox1 on admission, well off her baseline per family. Confusion is due to DKA. - Treat DKA as above - Await UA results - Bed alarm 5. Suspected dementia - MOCA 02/26 during last admission. Per daughter she has had a steady decline in memory function over the last year, although at baseline she is interactive and can perform most ADLs on her own. 6. Hx of PE - On apixaban therapy - Continue apixaban pending reconciliation 7. dCHF - Appears compensated at the moment. 8. Paroxysmal atrial fibrillation - In NSR on admission ECG. - On apixaban 9. Hypothyroidism - Continue LTX Diet - NPO while on IV insulin Code - Full Ppx - apixaban Dispo - Admit under inpatient status
[2018-06-06] MEDS: POTASSIUM Cl (KCl) 100 ML IV SCH ×5 (03:04→11:23)
[2018-06-06 06:08] LABS: PLATELET COUNT 313 10^3/uL (150-400)
[2018-06-06] MEDS ORDERED: D50W 25 GM/50 ML SYR IVP ONE (07:28)
[2018-06-06] MEDS ORDERED: INSULIN REGULAR HUMAN 100 UNIT in NS 100 ML IV SCH (08:00)
[2018-06-06] MEDS ORDERED: RN:ENTER POTASSIUM ICU PROTOCOL ON WORKLIST MISC ONE (08:00)
[2018-06-06] MEDS ORDERED: D10W 1,000 ML IV SCH (08:00)
[2018-06-06] MEDS ORDERED: D50W 25 GM/50 ML SYR IVP PRN ×2 (08:00→11:08)
[2018-06-06] MEDS ORDERED: NS 1,000 ML IV SCH (08:00)
[2018-06-06] MEDS ORDERED: PROTOCOL POTASSIUM 1 DOSE MISC PRN (08:54)
[2018-06-06] MEDS: NYSTATIN POWDER 15 GM BTL TP SCH ×3 (09:16→20:42)
--- NOTE | 2018-06-06 10:33 | PDMN ---
Medical Necessity Medical necessity: Pt meets IP criteria per MD & MCG M-130 Diabetes; est los >2 mn for eval/tx of DKA w/acute encephalopathy & DREW; admit for close ICU monitoring & DKA protocol; comorbid advanced age, hx multiple hospitalizations for similar issues, CHF, dementia; per H&P & order 06/05/18
[2018-06-06] MEDS: INSULIN REGULAR HUMAN 100 UNIT/ML UNIT SC SCH ×3 (11:28→21:13)
[2018-06-06] MEDS: INSULIN GLARGINE 100 UNITS/ML UNIT SC SCH ×2 (11:39→11:58)
[2018-06-06] MEDS: INSULIN ASPART NovoLOG 70/30 100 UNITS/ML SYR SC SCH ×2 (11:40→18:00)
--- NOTE | 2018-06-06 14:56 | ASMTCMCOM ---
CM Note CM Note Notes: Pt is a 73 yo F in with DKA. Has has a number of admissions this past year for uncontrolled diabetes. Has history of dementia, unknown if does as well but there is question if is able to care for pt appropriately. Last admission pt was planned to go to [facility] and then ultimately refused and went home independently with her . Pt also has history of [facility] linkage with [facility] and [facility]. Pt's daughter was suppose to come to have a family meeting at 2pm today but then pt was transfered and pt's dtr has not come up. Veena from Palliative/spiritual care has been involved and supportive. CM to follow. Plan: TBD Date Signed: 06/06/2018 02:55 PM Electronically Signed By:TONIO Evans
--- NOTE | 2018-06-06 16:21 | HOSPPROG ---
Hospitalist Progress Note Assessment/Plan: * DKA - resolved -change to home Lantus and monitor * DM 1 -recurrent episodes of DKA -likely due to difficulties managing DM with dementia -consult speech for cog eval - to address with daughter and * Metabolic encephalopathy due to DKA -improving * Probable dementia -suspect now back to baseline -assess patient's ability to self manage insulin * Urinary retention s/p straight cath -seems to be voiding well now -continue to follow bladder scans * Groin candidiasis -Nystatin powder * h/o PE -Eliquis * Afib -Eliquis * Chronic diastolic CHF -compensated * Hyponatremia -recheck AM Subjective: No compliants, disorientated, can't give any history regarding recent events Objective: Vital Signs Temp Pulse Resp BP Pulse Ox 36.4 C 91 17 141/74 H 98 06/06/18 14:56 06/06/18 14:56 06/06/18 14:56 06/06/18 14:56 06/06/18 14:56 Laboratory Results 06/06/18 05:55 06/06/18 08:30 06/05/18 06/06/18 06/07/18 05:59 05:59 05:59 Intake Total 3647.3 Output Total 1000 800 Balance 2647.3 -800 EKG viewed, my personal interpretation is - NSR CXR - negative - Physical Exam Constitutional: no apparent distress, appears nourished, not in pain Cardiovascular: regular rate and rhythym, no murmur, rub, or gallop Respiratory: no respiratory distress, no rales or rhonchi, clear to auscultation Gastrointestinal: normoactive bowel sounds, soft, non-tender abdomen, no palpable masses Skin: no rashes or abrasions, no fluctuance, no induration Neurologic: No AAOx3 Psychiatric: encephalopathic, flat affect, poor insight, poor judgement, poor memory, No interacting appropriately ICD10 Worksheet Patient Problems: Problems Problem Status Onset Diabetic ketoacidosis Acute Abdominal pain Acute Chronic Disease Mgmt/Transitional Care Acute Cough Acute Diarrhea Acute Hyperglycemia Acute Hyperglycemia due to type 1 diabetes mellitus Acute Hyponatremia Acute UTI (urinary tract infection) Acute
[2018-06-06] MEDS: DULoxetine 60 MG CAP PO SCH (20:42)
[2018-06-06] MEDS: APIXABAN 5 MG TAB PO SCH (20:42)
[2018-06-06] MEDS: ATORVASTATIN CALCIUM 20 MG TAB PO SCH (20:42)
[2018-06-06] MEDS ORDERED: INSULIN GLARGINE HUM REC ANLOG 28 UNIT SQ SCH (21:00)
[2018-06-06] MEDS ORDERED: diphenhydrAMINE 25 MG CAP PO PRN (22:01)
[2018-06-06] MEDS: AMITRIPTYLINE HCL 10 MG TAB PO SCH (22:34)
--- NOTE | 2018-06-07 04:00 | CPEKG ---
Test Reason : OPEN Blood Pressure : / mmHG Vent. Rate : 102 BPM Atrial Rate : 102 BPM P-R Int : 147 ms QRS Dur : 078 ms QT Int : 335 ms P-R-T Axes : 020 -56 056 degrees QTc Int : 437 ms Sinus tachycardia Probable left atrial enlargement Inferior infarct, old Anteroseptal infarct, old Confirmed by Domenico Doe ([id number]) on 06/07/2018 3:59:53 AM Referred By: Domenico Doe Confirmed By:Domenico Doe
[2018-06-07 05:05] LABS: PLATELET COUNT 307 10^3/uL (150-400)
[2018-06-07] MEDS: LEVOTHYROXINE 175 MCG TAB PO SCH (05:15)
[2018-06-07] MEDS: INSULIN ASPART NovoLOG 70/30 100 UNITS/ML SYR SC SCH ×3 (09:48→17:16)
[2018-06-07] MEDS: INSULIN GLARGINE 100 UNITS/ML UNIT SC SCH (09:48)
[2018-06-07] MEDS: INSULIN REGULAR HUMAN 100 UNIT/ML UNIT SC SCH ×4 (09:48→21:17)
[2018-06-07] MEDS: APIXABAN 5 MG TAB PO SCH ×2 (09:49→21:18)
[2018-06-07] MEDS: DULoxetine 60 MG CAP PO SCH ×2 (09:49→21:18)
[2018-06-07] MEDS: NYSTATIN POWDER 15 GM BTL TP SCH ×3 (11:01→21:20)
[2018-06-07] MEDS ORDERED: PROTOCOL POTASSIUM 1 DOSE MISC PRN (11:51)
[2018-06-07] MEDS ORDERED: POTASSIUM CL 10 MEQ TAB PO ONE (12:11)
--- NOTE | 2018-06-07 13:41 | HOSPPROG ---
Hospitalist Progress Note Assessment/Plan: 73yo F with dementia, insulin dependent diabetes with recurrent admission for dka here with dka and confusion. #DKA: resolved. due to insulin non-adherence #type 1 diabetes with hyperglycemia: bg better but still mildly elevated - continue glargine 28u, scheduled lispro 15u tid w/meals, SSI #acute metabolic encephalopathy: resolved. d/t dka #dementia: does not have decision making capacity at present - discussion with daughter (desmond) who notes significant mental decline over last 8 months. she does not feel that patient returning to independent living is safe, which i agree with. met with daughter and CM - will likely need retirement placement #pseudohyponatremia: d/t elevated BG, now resolved #urinary retention: resolved #groin candidiasis - nystatin powder #h/o PE - eliquis #afib - eliquis #chronic diastolic CHF: compensated #depression - home meds Code: full Dispo: Remain inpatient. Discussion with daughter as outlined above. Will likely go to SNF immediately after this hospital stay with overall goal to get patient to exterminator care after that. Subjective: Feeling much better. Back to baseline mental status per daughter. No abdominal pain, nausea. She is unsure why her blood sugars became so abnormal - thinks possibly related to incorrect readings on subcutaneous glucose monitor. Objective: Vital Signs Temp Pulse Resp BP Pulse Ox 36.4 C 96 16 144/109 H 97 06/07/18 08:20 06/07/18 08:20 06/07/18 08:20 06/07/18 08:20 06/07/18 08:20 Laboratory Results 06/07/18 04:48 06/07/18 04:48 06/06/18 06/07/18 06/08/18 05:59 05:59 05:59 Intake Total 3647.3 Output Total 1000 800 Balance 2647.3 -800 - Physical Exam Constitutional: no apparent distress, appears nourished, not in pain Eyes: PERRL, anicteric sclera, EOMI Ears, Nose, Mouth, Throat: moist mucous membranes, hearing normal, ears appear normal, no oral mucosal ulcers Cardiovascular: regular rate and rhythym, no murmur, rub, or gallop, No edema Respiratory: no respiratory distress, no rales or rhonchi, clear to auscultation Gastrointestinal: normoactive bowel sounds, soft, non-tender abdomen, no palpable masses Genitourinary: no bladder fullness, no bladder tenderness, no renal bruits Skin: no rashes or abrasions, no fluctuance, no induration Musculoskeletal: generalized weakness Neurologic: other (alert, oriented x2) Psychiatric: encephalopathic ICD10 Worksheet Patient Problems: Problems Problem Status Onset Diabetic ketoacidosis Acute Abdominal pain Acute Chronic Disease Mgmt/Transitional Care Acute Cough Acute Diarrhea Acute Hyperglycemia Acute Hyperglycemia due to type 1 diabetes mellitus Acute Hyponatremia Acute UTI (urinary tract infection) Acute
--- NOTE | 2018-06-07 14:08 | ASMTCMCOM ---
CM Note CM Note Notes: Met with daughter Willa and Dr. Mendez to review disposition and patient's care needs at this time. Patient has had multiple admissions for DKA and is suffering cognitive decline. It is felt she is unable to safely care for herself and referrals have been placed to SNF/Rehabs at this time. The daughter who is also POA will be actively seeking care solutions which may include detention care placement. CM available to assist with care. Plan: To SNF Date Signed: 06/07/2018 02:07 PM Electronically Signed By:Kim Toney RN
[2018-06-07] MEDS: AMITRIPTYLINE HCL 10 MG TAB PO SCH (21:18)
[2018-06-07] MEDS: ATORVASTATIN CALCIUM 20 MG TAB PO SCH (21:18)
[2018-06-08] MEDS ORDERED: POTASSIUM CL 10 MEQ TAB PO ONE (06:19)
[2018-06-08] MEDS: LEVOTHYROXINE 175 MCG TAB PO SCH (06:31)
[2018-06-08] MEDS: INSULIN REGULAR HUMAN 100 UNIT/ML UNIT SC SCH ×4 (08:04→21:11)
[2018-06-08] MEDS ORDERED: INSULIN GLARGINE 100 UNITS/ML UNIT SC SCH ×3 (08:41→14:06)
[2018-06-08] MEDS: INSULIN ASPART NovoLOG 70/30 100 UNITS/ML SYR SC SCH ×3 (08:47→17:49)
[2018-06-08] MEDS: DULoxetine 60 MG CAP PO SCH ×2 (09:05→21:15)
[2018-06-08] MEDS: APIXABAN 5 MG TAB PO SCH ×2 (09:05→21:15)
[2018-06-08] MEDS: NYSTATIN POWDER 15 GM BTL TP SCH ×3 (09:09→21:36)
--- NOTE | 2018-06-08 14:11 | HOSPPROG ---
Hospitalist Progress Note Assessment/Plan: 73yo F with dementia, insulin dependent diabetes with recurrent admission for dka here with dka and confusion. #DKA: resolved. due to insulin non-adherence #type 1 diabetes: she is brittle. hypoglycemia this AM, not symptomatic. daytime hyperglycemia. - decrease glargine 28->22u, continue scheduled lispro 15u tid w/meals, SSI #acute metabolic encephalopathy: resolved. d/t dka #dementia: does not have decision making capacity - daughter (desmond) notes significant mental decline over last 8 months. she does not feel that patient returning to independent living is safe, which i agree with. met with daughter and CM - will likely need terminal gauger supervisor placement #pseudohyponatremia: d/t elevated BG, now resolved #urinary retention: resolved #groin candidiasis - nystatin powder #h/o PE - eliquis #afib - eliquis #chronic diastolic CHF: compensated #depression - home meds Code: full Dispo: Remain inpatient. Plan for SNF then possibly retirement care (family is working on this). Hopeful to dc to [facility] tomorrow. Subjective: Didn't feel blood glucose of 48 this morning, she was sleeping. [place] fine when she woke up. No new issues otherwise. Objective: Vital Signs Temp Pulse Resp BP Pulse Ox 36.7 C 96 16 111/83 H 98 06/08/18 08:00 06/08/18 08:00 06/08/18 08:00 06/08/18 08:00 06/08/18 08:00 Laboratory Results 06/07/18 04:48 06/08/18 04:46 06/07/18 06/08/18 06/09/18 05:59 05:59 05:59 Intake Total 1000 Output Total 800 Balance -800 1000 - Physical Exam Constitutional: no apparent distress, appears nourished, not in pain Eyes: PERRL, anicteric sclera, EOMI Ears, Nose, Mouth, Throat: moist mucous membranes, hearing normal, ears appear normal, no oral mucosal ulcers Cardiovascular: regular rate and rhythym, no murmur, rub, or gallop, No edema Respiratory: no respiratory distress, no rales or rhonchi, clear to auscultation Gastrointestinal: normoactive bowel sounds, soft, non-tender abdomen, no palpable masses Genitourinary: no bladder fullness, no bladder tenderness, no renal bruits Skin: no rashes or abrasions, no fluctuance, no induration Musculoskeletal: generalized weakness Neurologic: other (alert, appears oriented but conversations are often tangential) ICD10 Worksheet Patient Problems: Problems Problem Status Onset Diabetic ketoacidosis Acute Abdominal pain Acute Chronic Disease Mgmt/Transitional Care Acute Cough Acute Diarrhea Acute Hyperglycemia Acute Hyperglycemia due to type 1 diabetes mellitus Acute Hyponatremia Acute UTI (urinary tract infection) Acute
[2018-06-08] MEDS: AMITRIPTYLINE HCL 10 MG TAB PO SCH (21:15)
[2018-06-08] MEDS: ATORVASTATIN CALCIUM 20 MG TAB PO SCH (21:15)
[2018-06-09] MEDS: LEVOTHYROXINE 175 MCG TAB PO SCH (06:34)
[2018-06-09] MEDS ORDERED: POTASSIUM CL 10 MEQ TAB PO ONE (07:41)
[2018-06-09] MEDS: INSULIN REGULAR HUMAN 100 UNIT/ML UNIT SC SCH ×2 (08:22→11:44)
[2018-06-09] MEDS: INSULIN ASPART NovoLOG 70/30 100 UNITS/ML SYR SC SCH ×2 (08:22→11:45)
[2018-06-09 08:26] VITALS: BP 99/62
[2018-06-09] MEDS: APIXABAN 5 MG TAB PO SCH (08:46)
[2018-06-09] MEDS: DULoxetine 60 MG CAP PO SCH (08:46)
[2018-06-09] MEDS: NYSTATIN POWDER 15 GM BTL TP SCH (08:47)
--- NOTE | 2018-06-09 09:48 | PDIAF ---
- Diagnosis Code Status: Full Code - Medication Management Discharge Medications: electronically signed and located in the Home Medication List. - Orders Isolation Type: Contact Isolation Diet Recommendation: ADA 2200 consistent carb Additional Instructions: Continue to use finger stick blood glucose monitoring until your device is checked out and either replaced or fixed. - Labs/Radiology FBS Date: 06/09/18 ([facility]) - Follow Up Care Current Providers and Referrals: Margarita Jimenez MD [Primary Care Provider] - As per Instructions Jael Mosley MD [Medical Doctor] -
--- NOTE | 2018-06-09 09:48 | PDDCSUM ---
Discharge Summary Discharge Summary: Dates of service: 06/06-06/09/2018 Consultations: none Procedures performed: none Hospital course by problem: 73yo F with dementia, insulin dependent diabetes with recurrent admission for dka here with dka and confusion. #DKA: resolved. due to insulin non-adherence #type 1 diabetes: she is brittle. hypoglycemia this AM, not symptomatic. daytime hyperglycemia. - decrease glargine 28->22u, continue scheduled lispro 15u tid w/meals, SSI #acute metabolic encephalopathy: resolved. d/t dka #dementia: does not have decision making capacity - daughter (mdpoa) notes significant mental decline over last 8 months. she does not feel that patient returning to independent living is safe, which i agree with. plan is for snf after dc and likely geoscience professor care #pseudohyponatremia: d/t elevated BG, now resolved #urinary retention: resolved #groin candidiasis - nystatin powder #h/o PE - eliquis #afib - eliquis #chronic diastolic CHF: compensated #depression - home meds Code: full DC to [facility] > 35 min spent in dc more than half in coordination of care Items for follow up: determination if patients indwelling glucose monitor is working or needs to be exchanged
--- NOTE | 2018-06-09 10:34 | ASMTLACE ---
LACE Length of stay for Answers: 4-6 days current admission Acuity / Level of Answers: Yes Care: Did the patient have an inpatient admission? Comorbidities - select Answers: Congestive heart failure all that apply Diabetes (uncontrolled or controlled) Other Notes: PE; HLD # of Emergency department Answers: 5-8 visits in the last 6 months Score: 15 Date Signed: 06/09/2018 10:34 AM Electronically Signed By:FLORIDALMA Corona
--- NOTE | 2018-06-09 11:28 | ASDISCHSUM ---
Discharge Information Plan Status:SNF Medically Cleared to Leave:06/09/2018 Discharge Date:06/09/2018 CM D/C Disposition:[facility] Facility ADT D/C Disposition:[facility] Facility Projected Discharge Date:06/09/2018 11:00 AM Transportation at D/C:Wheelchair Van Discharge Delay Reason: Follow-Up Date:06/09/2018 11:00 AM Discharge Slot: Final Diagnosis: Placement Information Referral Type:*Alf/SNF Referral ID:[id number] Provider Name:[facility] Address 1:[address] Address 2: City:[place] Selection Factors: State:[place] Patient Contact Information Contact Name:VALENTÍN Relationship: Address:[address] City:[place] Alternate Phone: State/Zip Code:[place] [address] Email: Financial Information Financial Class:Medicare Primary Plan Desc:MEDICARE INPATIENT Primary Plan Number:[id number] Secondary Plan Desc:[employer] Secondary Plan Number:[id number] Assessment Information LACE LACE Length of stay for Answers: 4-6 days current admission Acuity / Level of Answers: Yes Care: Did the patient have an inpatient admission? Comorbidities - select Answers: Congestive heart failure all that apply Diabetes (uncontrolled or controlled) Other Notes: PE; HLD # of Emergency department Answers: 5-8 visits in the last 6 months Score: 15 Date Signed: 06/09/2018 10:34 AM Electronically Signed By:FLORIDALMA Corona QUAN CM Progress Note CM Note CM Note Notes: Pt is a 73 yo F in with DKA. Has has a number of admissions this past year for uncontrolled diabetes. Has history of dementia, unknown if does as well but there is question if is able to care for pt appropriately. Last admission pt was planned to go to [facility] and then ultimately refused and went home independently with her . Pt also has history of [facility] linkage with [facility] and [facility]. Pt's daughter was suppose to come to have a family meeting at 2pm today but then pt was transfered and pt's dtr has not come up. Veena from Palliative/spiritual care has been involved and supportive. CM to follow. Plan: TBD Date Signed: 06/06/2018 02:55 PM Electronically Signed By:TONIO Evans [facility] CM Progress Note CM Note CM Note Notes: Met with daughter Willa and Dr. Mendez to review disposition and patient's care needs at this time. Patient has had multiple admissions for DKA and is suffering cognitive decline. It is felt she is unable to safely care for herself and referrals have been placed to SNF/Rehabs at this time. The daughter who is also POA will be actively seeking care solutions which may include ferry terminal agent care placement. CM available to assist with care. Plan: To SNF Date Signed: 06/07/2018 02:07 PM Electronically Signed By:Kim Toney RN Intervention Information Intervention Type:*Incorrect Registration Date of Service:06/05/2018 07:28 AM Patient Type:Observation Staff Member:ESCOBAR Morel, Angeline Hours: Discipline: Severity: Comment: Intervention Type:IM-Pt. Not Available Date of Service:06/09/2018 10:16 AM Patient Type:Inpatient Staff Member:Carolyn Carlson Hours: Discipline: Severity: Comment:Left a voicemail with the patients shailesh amaral and Willa LEYVA, to review the Medicare Important Notice.
== END 2018-06-09 12:12 | DRG 637 ==
LOC: OBSVTOIN 23:22 → F2N 23:59 → F1N 06-06 14:38
PROVIDERS: ADMIT Student in an Organized Health Care Education/Training Program; ATTEND Student in an Organized Health Care Education/Training Program
DX: E10.10 Type 1 diabetes mellitus with ketoacidosis without coma (principal); G93.41 Metabolic encephalopathy; E87.1 Hypo-osmolality and hyponatremia; R33.9 Retention of urine, unspecified; F03.90 Unspecified dementia, unspecified severity, without behavioral disturbance, psychotic disturbance, mood disturbance, and anxiety; I48.0 Paroxysmal atrial fibrillation; I11.0 Hypertensive heart disease with heart failure; I50.30 Unspecified diastolic (congestive) heart failure; B37.89 Other sites of candidiasis; N17.9 Acute kidney failure, unspecified; E03.9 Hypothyroidism, unspecified; E78.5 Hyperlipidemia, unspecified; F32.9 Major depressive disorder, single episode, unspecified; Z79.01 Long term (current) use of anticoagulants; Z79.4 Long term (current) use of insulin; Z86.711 Personal history of pulmonary embolism; Z87.891 Personal history of nicotine dependence; Z96.652 Presence of left artificial knee joint
CPT/HCPCS: 82435-PO; 82565-PO; 82947-PO; 84132-PO; 84295-PO; 84484-ER; 84520-PO; 85014-ER; 92507-GN; 92523-GN; 96365; 97116-GP; 97162-GP; 97166-GO; 97535-GO; G0515-GO; J1815; J3480

== ENCOUNTER → 2018-06-30 | Outpatient (CLI) | payer OTHER | LOC: EMCIMAGING 09:45 | PROVIDERS: ATTEND Psychiatry & Neurology Neurology | DX: G31.9 Degenerative disease of nervous system, unspecified (principal); R94.02 Abnormal brain scan | CPT/HCPCS: 70551-PN ==

== ENCOUNTER 2018-07-08 02:01 | Emergency (ER) | payer OTHER ==
[2018-07-08] MEDS ORDERED: NS 1,000 ML IV ONE (02:26)
[2018-07-08] MEDS ORDERED: INSULIN REGULAR HUMAN 100 UNIT/ML UNIT IVP ONE (02:35)
[2018-07-08] MEDS ORDERED: INSULIN REGULAR HUMAN 100 UNIT/ML UNIT SC ONE (02:49)
[2018-07-08 02:55] LABS: PLATELET COUNT 405 10^3/uL (150-400)
--- NOTE | 2018-07-08 02:55 | EDPHY ---
H & P Stated Complaint: high blood sugar Time Seen by Provider: 07/08/18 02:16 HPI/ROS: HPI The patient presents with elevated blood glucoses at home tonight starting at about dinner time. Throughout the course of the day her blood glucoses were in the normal range for her in the 100s to 200s monitored by her continuous glucose monitor. However tonight at dinner time her blood glucose was elevated and read high on her glucometer. She gave herself NovoLog 10 units at about 930 she gave herself Lantus 12 units and at 1:00 a.m. NovoLog 20 units. She was hoping this would bring down her blood glucose, however with persistent elevated reading she came into the emergency department. She has no symptoms whatsoever including nausea, vomiting, abdominal pain, dizziness. She was admitted last month for DKA under similar circumstances. REVIEW OF SYSTEMS 10 systems were reviewed and negative with the exception of the elements mentioned in the history of present illness. PMHx: Type 1 diabetes on insulin, history of dementia, atrial fibrillation Soc Hx: Here with her PHYSICAL General Appearance: Alert, no distress Eyes: Pupils equal and round no pallor or injection ENT, Mouth: Mucous membranes moist Respiratory: There are no retractions, lungs are clear to auscultation Cardiovascular: Regular rate and rhythm Gastrointestinal: Abdomen is soft and non-tender, no masses, bowel sounds normal Neurological: A&O, moves all extremities Skin: Warm and dry, no rashes Musculoskeletal: Neck is supple non tender Extremities: symmetrical, full range of motion Psychiatric: Patient is oriented X 3, there is no agitation Source: Patient Exam Limitations: No limitations - Personal History Tetanus Vaccine Date: 2016 - Medical/Surgical History Hx Asthma: No Hx Chronic Respiratory Disease: No Hx Diabetes: Yes Hx Cardiac Disease: No Hx Renal Disease: No Hx Cirrhosis: No Hx Alcoholism: No Hx HIV/AIDS: No Hx Splenectomy or Spleen Trauma: No Other PMH: TYPE 1 DIABETES, HYPOTHYROID, 2005-BINDU. lap band. bilateral rotator coff, left knee replaced - Social History Smoking Status: Former smoker Constitutional: Initial Vital Signs Temperature (C) 36.5 C 07/08/18 02:05 Heart Rate 88 07/08/18 02:05 Respiratory Rate 20 07/08/18 02:05 Blood Pressure 173/95 H 07/08/18 02:05 O2 Sat (%) 95 07/08/18 02:05 O2 Delivery Mode Room Air Allergies/Adverse Reactions: maltodextrin Allergy (Verified 07/08/18 02:05) Diarrhea, cramps Sulfa (Sulfonamide Antibiotics) Allergy (Verified 07/08/18 02:05) itching all over Home Medications: Medication Instructions Recorded Amitriptyline HCl [Elavil 10 mg 10 mg PO HS 05/24/15 (*)] Apixaban [Eliquis] 5 mg PO BID 06/06/18 Atorvastatin Calcium [Lipitor 20 20 mg PO HS 06/06/18 mg (*)] DULoxetine [Cymbalta 60 MG (*)] 60 mg PO BID 06/06/18 Insulin Aspart [Novolog Flexpen] 15 unit SQ TIDMEAL 06/06/18 Insulin Glargine,Hum.rec.anlog 28 unit SQ HS 06/06/18 [Lantus Solostar] Levothyroxine [Synthroid 175 mcg 175 mcg PO DAILY 06/06/18 (*)] Nystatin Powder [Mycostatin Powder] 1 kenneth TP TID #0 powder 06/09/18 Cephalexin [Keflex (*)] 500 mg PO Q6H #28 cap 07/08/18 Medical Decision Making Differential Diagnosis: 71-year-old female with type 1 diabetes which is brittle presents with elevated blood glucoses with absence of symptoms which began tonight at dinner time. Patient is taking her insulin routinely, increased her doses tonight with continued elevated blood glucoses. Here, vital signs are normal and she is well -appearing. Initial blood glucose is 500. Plan for treatment with fluids and insulin. Patient's lab testing demonstrated blood glucose of 500 with no anion gap. She has signs of a UTI on her UA though there are no ketones. I doubt she is in DKA. Repeat blood glucose was 370. I will treat her for urinary tract infection as this may have caused a rise in her glucose, however given absence of anion gap I do not think she needs to be admitted for her hyperglycemia. She will be discharged home with her . - Data Points Laboratory Results: Laboratory Results 07/08/18 02:19 07/08/18 02:19 07/08/18 07/08/18 07/08/18 03:35 03:15 02:24 WBC RBC Hgb POC Hgb 15.0 gm/dL gm/dL (12.6-16.3) Hct POC Hct 44 % % (38-47) MCV MCH MCHC RDW Plt Count MPV Neut % (Auto) Lymph % (Auto) [place] % (Auto) Eos % (Auto) Baso % (Auto) Nucleat RBC Rel Count Absolute Neuts (auto) Absolute Lymphs (auto) Absolute Monos (auto) Absolute Eos (auto) Absolute Basos (auto) Absolute Nucleated RBC Immature Gran % Immature Gran # POC Sodium 132 mEq/L L mEq/L (135-145) Sodium POC Potassium 4.0 mEq/L mEq/L (3.3-5.0) Potassium POC Chloride 97 mEq/L mEq/L (97-110) Chloride Carbon Dioxide POC Total CO2 21 mEq/L L mEq/L (22-31) Anion Gap POC BUN 18 mg/dL mg/dL (7-23) BUN Creatinine POC Creatinine 0.8 mg/dL mg/dL (0.6-1.0) Estimated GFR Glucose POC Glucose 378 mg/dL H mg/dL 510 mg/dL H* mg/dL (70-100) (70-100) Calcium Total Bilirubin AST ALT Alkaline Phosphatase Total Protein Albumin Beta-Hydroxybutyrate Urine Color PALE YELLOW Urine Appearance HAZY Urine pH 7.0 (5.0-7.5) Ur Specific [place] 1.025 (1.002-1.030) Urine Protein NEGATIVE (NEGATIVE) Urine Ketones NEGATIVE (NEGATIVE) Urine Blood NEGATIVE (NEGATIVE) Urine Nitrate NEGATIVE (NEGATIVE) Urine Bilirubin NEGATIVE (NEGATIVE) Urine Urobilinogen NEGATIVE EU EU (0.2-1.0) Ur Leukocyte Esterase 3+ H (NEGATIVE) Urine RBC NONE SEEN /hpf /hpf (0-3) Urine WBC 50-182 /hpf H /hpf (0-3) Ur Epithelial Cells TRACE /lpf /lpf (NONE-1+) Urine Mucus TRACE /lpf /lpf (NONE-1+) Urine Glucose 3+ H (NEGATIVE) 07/08/18 07/08/18 02:19 02:19 WBC 10.03 10^3/uL H 10^3/uL (3.80-9.50) RBC 4.85 10^6/uL 10^6/uL (4.18-5.33) Hgb 13.6 g/dL g/dL (12.6-16.3) POC Hgb Hct 40.5 % % (38.0-47.0) POC Hct MCV 83.5 fL fL (81.5-99.8) MCH 28.0 pg pg (27.9-34.1) MCHC 33.6 g/dL g/dL (32.4-36.7) RDW 14.2 % % (11.5-15.2) Plt Count 405 10^3/uL H 10^3/uL (150-400) MPV 10.0 fL fL (8.7-11.7) Neut % (Auto) 46.3 % % (39.3-74.2) Lymph % (Auto) 38.1 % % (15.0-45.0) [place] % (Auto) 12.4 % % (4.5-13.0) Eos % (Auto) 2.4 % % (0.6-7.6) Baso % (Auto) 0.6 % % (0.3-1.7) Nucleat RBC Rel Count 0.0 % % (0.0-0.2) Absolute Neuts (auto) 4.65 10^3/uL 10^3/uL (1.70-6.50) Absolute Lymphs (auto) 3.82 10^3/uL H 10^3/uL (1.00-3.00) Absolute Monos (auto) 1.24 10^3/uL H 10^3/uL (0.30-0.80) Absolute Eos (auto) 0.24 10^3/uL 10^3/uL (0.03-0.40) Absolute Basos (auto) 0.06 10^3/uL 10^3/uL (0.02-0.10) Absolute Nucleated RBC 0.00 10^3/uL 10^3/uL (0-0.01) Immature Gran % 0.2 % % (0.0-1.1) Immature Gran # 0.02 10^3/uL 10^3/uL (0.00-0.10) POC Sodium Sodium 130 mEq/L L mEq/L (135-145) POC Potassium Potassium 4.4 mEq/L mEq/L (3.5-5.2) POC Chloride Chloride 96 mEq/L L mEq/L (97-110) Carbon Dioxide 20 mEq/l L mEq/l (22-31) POC Total CO2 Anion Gap 14 mEq/L mEq/L (6-14) POC BUN BUN 19 mg/dL mg/dL (7-23) Creatinine 0.7 mg/dL mg/dL (0.6-1.0) POC Creatinine Estimated GFR > 60 Glucose 505 mg/dL H* mg/dL (70-100) POC Glucose Calcium 9.4 mg/dL mg/dL (8.5-10.4) Total Bilirubin 0.7 mg/dL mg/dL (0.1-1.4) AST 22 IU/L IU/L (14-46) ALT 29 IU/L IU/L (9-52) Alkaline Phosphatase 126 IU/L IU/L (38-126) Total Protein 6.4 g/dL g/dL (6.3-8.2) Albumin 4.0 g/dL g/dL (3.5-5.0) Beta-Hydroxybutyrate 0.20 mmol/L mmol/L (0.02-0.27) Urine Color Urine Appearance Urine pH Ur Specific [place] Urine Protein Urine Ketones Urine Blood Urine Nitrate Urine Bilirubin Urine Urobilinogen Ur Leukocyte Esterase Urine RBC Urine WBC Ur Epithelial Cells Urine Mucus Urine Glucose Medications Given: Discontinued Medications Sodium Chloride (Ns) 1,000 mls @ 0 mls/hr IV EDNOW ONE; Wide Open PRN Reason: Protocol Stop: 07/08/18 02:27 Last Admin: 07/08/18 02:32 Dose: 1,000 mls Insulin Human Regular (Humulin R) 10 unit IVP EDNOW ONE Stop: 07/08/18 02:36 Last Admin: 07/08/18 02:50 Dose: Not Given Insulin Human Regular (Humulin R) 10 unit SC EDNOW ONE Stop: 07/08/18 02:50 Last Admin: 07/08/18 02:51 Dose: 10 units Point of Care Test Results: Chemistry 07/08/18 07/08/18 03:35 02:24 POC Sodium 132 mEq/L L mEq/L (135-145) POC Potassium 4.0 mEq/L mEq/L (3.3-5.0) POC Chloride 97 mEq/L mEq/L (97-110) POC Total CO2 21 mEq/L L mEq/L (22-31) POC BUN 18 mg/dL mg/dL (7-23) POC Creatinine 0.8 mg/dL mg/dL (0.6-1.0) POC Glucose 378 mg/dL H mg/dL 510 mg/dL H* mg/dL (70-100) (70-100) ISTAT H&H 07/08/18 02:24 POC Hgb 15.0 gm/dL gm/dL (12.6-16.3) POC Hct 44 % % (38-47) Departure - Departure Disposition: Home, Routine, Self-Care Clinical Impression: Hyperglycemia UTI (urinary tract infection) Qualifiers: Urinary tract infection type: site unspecified Hematuria presence: without hematuria Qualified Code(s): N39.0 - Urinary tract infection, site not specified Condition: Good Instructions: Urinary Tract Infection in Women (ED), Diabetic Hyperglycemia (ED ) Referrals: Jael Mosley MD [Primary Care Provider] - As per Instructions Prescriptions: Cephalexin [Keflex (*)] 500 mg PO Q6H #28 cap
[2018-07-08 03:36] VITALS: BP 166/95
== END 2018-07-08 04:23 | disposition home or self-care (01) ==
DX: E10.65 Type 1 diabetes mellitus with hyperglycemia (principal); N39.0 Urinary tract infection, site not specified; E86.9 Volume depletion, unspecified; F03.90 Unspecified dementia, unspecified severity, without behavioral disturbance, psychotic disturbance, mood disturbance, and anxiety; I48.91 Unspecified atrial fibrillation; Z79.4 Long term (current) use of insulin
CPT/HCPCS: 96361; 96365; 96372; 99284; J0696; J1815; 82435-PO; 82565-PO; 82947-PO; 84132-PO; 84295-PO; 84520-PO; 85014-ER

== ENCOUNTER 2018-07-27 05:26 | Emergency (ER) | payer OTHER | END 2018-07-27 09:01 | disposition home or self-care (01) ==

== ENCOUNTER → 2018-08-11 | Outpatient (CLI) | payer OTHER | LOC: EMCIMAGING 08:44 ==